=== PATIENT | male | born 1960 | race Caucasian/White ===

== ENCOUNTER 2022-08-20 07:44 | Day surgery (SDC) | payer MEDICARE, MEDICAID, SELFPAY ==
--- NOTE | 2022-08-20 07:59 | PCM.HP.BLA ---
History and Physical Date of Admission: 08/20/22 MARITZA EDWARDS, is a 61 M who presents to the office today for?Initial consult. Dav established with this clinic 05.18.22 with referral from PCP to evaluate ongoing abdominal/epigastric cramping. Underwent open cholecystectomy for acute cholecystitis 09.11.18. Gallbladder remnant seen on CT 12.12.18 and underwent laparoscopic cholecystectomy 01.07.19 at [facility] with Dr. Harrell who also found significant adhesions during surgery which were lysed. Follow up US was reported as negative 02.18.19. Abdominal MRI 04.28.19 without ductal dilation or choledocholithiasis; 9mm hemorrhagic cyst on left kidney. Dr. Mascorro seen and started on gabapentin 300mg TID. Gastroenterology seen 01.12.20 who did not suspected Sphincter of Oddi, started Pamelor, weaned gabapentin and consulted for psychiatric support. Attempted dicyclomine previously which caused constipation, bloating and emesis. Utilizes marijuana 3-4 times a day and Zanaflex as prescribed by his pain management doctor. Flexaril has been very helpful. EGD most recently in 2018. 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 US 06.07.21 with normal pancreas, liver, kidney, no ascites, noted cholecystectomy. CBD 0.7cm at hilum. ROS Const Constitutional: No anorexia, fatigue, fever(s), weight change or sleep problems Eyes Eyes: No change in vision ENT ENT: No abnormal hearing, difficulty swallowing, mouth lesions, tongue swelling or throat swelling Resp Respiratory: No cough or shortness of breath Cardio Cardiology: No chest pain at rest, chest pain with exertion, shortness of breath or dyspnea on exertion Gastro GI: No difficulty swallowing Genitourinary Male: No difficulty urinating or burning urination Musc Musculoskeletal: No joint pain, joint swelling, muscle weakness or decreased muscle mass Skin Skin: No hair loss in leg, yellowing of the eye, itchy eyes, rash, skin ulcer or skin swelling Neuro Neurology: No abnormal hearing, abnormal movements, confusion, unsteady gait/balance or memory loss Psych Psychiatric: No anxiety, No confusion and No memory loss Endo Endocrine: No fatigue or weight change Aller/Imm Allergy/Immunologic: No itchy eyes, throat swelling or tongue swelling Bo/Lymp Hematologic/Lymphatic: No easy bleeding, easy bruising or enlarged lymph nodes Exam Const General: cooperative and comfortable Nutritional Appearance: average body habitus and well nourished [facility] Head: normal to inspection Ears: hearing grossly normal bilaterally Nose: external nose normal Face and sinus: normal facial exam Mouth: oral mucosae normal Throat: posterior oropharynx normal Eyes General: appearance normal, both eyes and all related structures Neck Neck: normal visual inspection Chest Chest palpation & inspection: normal inspection of the chest and normal palpation of entire chest wall Resp Effort & Inspection: normal respiratory effort Auscultation: Bilateral: Clear to Auscultation Cardio Palpation: normal PMI Rate: regular rate Rhythm: regular rhythm GI Inspection: normal to inspection Auscultation: normal bowel sounds Percussion: normal to percussion Palpation: no hepatosplenomegaly Skin General: no rashes or lesions noted Neuro General: patient alert Extrem General: normal to inspection Psych Affect: normal affect Quality Reporting Tobacco Screening ([facility] 138) Smoking Status: Never smoker Assessment and Plan Assessment and Plan (1) Upper abdominal pain: ?Status:?Acute ?Plan: The differential diagnosis for his upper abdominal pain does include better bowel syndrome, adhesions from his cholecystectomy, possible associated with his two cholecystectomies.? He should undergo an ERCP with hepatobiliary system.? I explained to them that this is a purely therapeutic procedure.? I also explained to them the risk and benefits of the ERCP including post ERCP pancreatitis, infection, bleeding, perforation and need for emergent surgery.? He gave written and verbal consent.? I will also look at the stomach to see if he has any signs of inflammation in the stomach or proximal small bowel that may be contributing to his biliary type symptoms. I have re-examined the patient. There are no clinical changes since date of exam.
[2022-08-20 08:19] VITALS: BP 141/87; PULSE 61; RESP 16; TEMP 36.8; O2SAT 97; BMI 28.8
--- NOTE | 2022-08-20 08:21 | EKG12_ITS ---
Test Reason : PRE-OP Blood Pressure : / mmHG Vent. Rate : 061 BPM Atrial Rate : 061 BPM P-R Int : 166 ms QRS Dur : 102 ms QT Int : 414 ms P-R-T Axes : 061 -40 018 degrees QTc Int : 416 ms Normal sinus rhythm Left axis deviation Abnormal ECG No previous ECGs available Confirmed by ELEAZAR MIX, ADOLFO ([id number]), editor newspaper DAVID BAILEY ([id number]) on 08/24/2022 8:23:30 AM Referred By: Alex Ji Confirmed By:ANDERS BUSH MD
[2022-08-20] MEDS: Lactated Ringers 1,000 ML 15 ML IV ×2 (08:30→10:01)
--- NOTE | 2022-08-20 09:16 | RAD_ITS ---
STUDY: ERCP. REASON FOR EXAM: Male, 62 years old. ERCP BIOPSY FLUOROSCOPY TIME (if supplied): ( 3 minutes and 24 seconds ) minutes/seconds. 7 images were submitted. TECHNIQUE: An ERCP was performed by the technical system analyst. Contrast was injected. COMPARISON: None. FINDINGS: Mild dilatation of the common bile duct. RAD/ERCP Biliary Only IMPRESSION: Mild dilatation of the common bile duct. Electronically Signed: Son Chapman MD at 8:45 EDT ,
[2022-08-20 10:45] VITALS: BP 134/83; BP 141/87; PULSE 73; RESP 14; TEMP 36.9; O2SAT 98
--- NOTE | 2022-08-20 10:52 | OP.ERCP_ITS ---
Patient Name: Kamlesh Carter Procedure Date: 08/20/2022 8:59 AM Date of : 1960 Age: 62 Procedure: ERCP Indications: Benign stricture of the common bile duct, Abdominal pain of suspected biliary origin, Abdominal pain of suspected biliary or pancreatic origin Providers: Sb Novak DO Referring MD: Alex Ji Medicines: Monitored Anesthesia Care Complications: No immediate complications. Procedure: Pre-Anesthesia Assessment: - Prior to the procedure, a History and Physical was performed, and patient medications and allergies were reviewed. The patient is competent. The risks and benefits of the procedure and the sedation options and risks were discussed with the patient. All questions were answered and informed consent was obtained. Patient identification and proposed procedure were verified by the physician in the pre-procedure area. Mental Status Examination: alert and oriented. Airway Examination: normal oropharyngeal airway and neck mobility. Respiratory Examination: clear to auscultation. CV Examination: normal. Prophylactic Antibiotics: The patient does not require prophylactic antibiotics. Prior Anticoagulants: The patient has taken no previous anticoagulant or antiplatelet agents. After reviewing the risks and benefits, the patient was deemed in satisfactory condition to undergo the procedure. The anesthesia plan was to use monitored anesthesia care (MAC). Immediately prior to administration of medications, the patient was re-assessed for adequacy to receive sedatives. The heart rate, respiratory rate, oxygen saturations, blood pressure, adequacy of pulmonary ventilation, and response to care were monitored throughout the procedure. The physical status of the patient was re-assessed after the procedure. After obtaining informed consent, the scope was passed under direct vision. Throughout the procedure, the patient's blood pressure, pulse, and oxygen saturations were monitored continuously. The Duodenoscope was introduced through the mouth, and advanced to the duodenum and used to inject contrast into the bile duct and ventral pancreatic duct. The ERCP was accomplished without difficulty. The patient tolerated the procedure well. Scope In: 9:29:39 AM Scope Out: 10:27:34 AM Total Procedure Duration Time 0 hours 57 minutes 55 seconds Findings: The concert singer film was normal. The esophagus was successfully intubated under direct vision. The scope was advanced to a normal major papilla in the descending duodenum without detailed examination of the pharynx, larynx and associated structures, and upper GI tract. The upper GI tract was grossly normal. The bile duct was deeply cannulated with the short-nosed traction sphincterotome. Contrast was injected. I personally interpreted the bile duct and pancreatic duct images. There was brisk flow of contrast through the ducts. The lower third of the main bile duct contained a single segmental stenosis 6 mm in length. The upper third of the main bile duct was diffusely dilated, with an obstruction. The largest diameter was 10 mm. A cholecystectomy had been performed. Placement of a 0.035 inch x 260 cm angled Hydra Jagwire into the biliary tree was attempted. This passed successfully. A 5 mm biliary sphincterotomy was made with a traction (standard) sphincterotome using ERBE electrocautery. There was no post-sphincterotomy bleeding. The biliary tree was swept with a 12 mm balloon starting at the bifurcation. Sludge was swept from the duct. Dilation of the common bile duct with a 6-7-8 mm balloon (to a maximum balloon size of 8 mm) dilator was successful. One 7 Fr by 7 cm stent with two internal flaps was placed 5 cm into the common bile duct. Bile flowed through the stent. The stent was in good position. One 3 Fr by 5 cm temporary stent was placed 3 cm into the ventral pancreatic duct. Clear fluid flowed through the stent. The stent was in good position. Impression: - A single segmental biliary stricture was found in the lower third of the main bile duct. The stricture was benign appearing. - The upper third of the main bile duct was dilated, with an obstruction. - The patient has had a cholecystectomy. - A biliary sphincterotomy was performed. - The biliary tree was swept and sludge was found. - Common bile duct was successfully dilated. - One stent was placed into the common bile duct. - One temporary stent was placed into the ventral pancreatic duct. Procedure Code(s): --- Professional --- 71440, Endoscopic retrograde cholangiopancreatography (ERCP); with placement of endoscopic stent into biliary or pancreatic duct, including pre- and post-dilation and guide wire passage, when performed, including sphincterotomy, when performed, each stent [id number], 59, Endoscopic retrograde cholangiopancreatography (ERCP); with placement of endoscopic stent into biliary or pancreatic duct, including pre- and post-dilation and guide wire passage, when performed, including sphincterotomy, when performed, each stent [id number], Endoscopic retrograde cholangiopancreatography (ERCP); with removal of calculi/debris from biliary/pancreatic duct(s) CPT copyright 2017 [employer]. All rights reserved. The codes documented in this report are preliminary and upon laundry housekeeping aide review may be revised to meet current compliance requirements. Sb Novak DO 08/20/2022 10:51:23 AM This report has been signed electronically. Number of Addenda: 0 Note Initiated On: 08/20/2022 8:59 AM
--- NOTE | 2022-08-20 10:52 | OP.CCLET_ITS ---
08/20/2022 Alex Ji Re : ERCP procedure for Kamlesh Carter Dear Margy This procedure was performed on Saturday, August 20, 2022. My impressions and recommendations are as follows: Impressions : - A single segmental biliary stricture was found in the lower third of the main bile duct. The stricture was benign appearing. - The upper third of the main bile duct was dilated, with an obstruction. - The patient has had a cholecystectomy. - A biliary sphincterotomy was performed. - The biliary tree was swept and sludge was found. - Common bile duct was successfully dilated. - One stent was placed into the common bile duct. - One temporary stent was placed into the ventral pancreatic duct. Recommendations : My findings are described in the full procedure note, which is enclosed. If I can be of further assistance, please feel free to contact me at . Sincerely, Sb Novak, 08/20/2022 10:51:23 AM This report has been signed electronically.
[2022-08-20 11:00] VITALS: BP 141/87; BP 141/89; PULSE 70; RESP 16; O2SAT 94
[2022-08-20 11:15] VITALS: BP 141/87; BP 145/88; PULSE 67; RESP 16; O2SAT 96
[2022-08-20 11:29] VITALS: BP 141/87; BP 143/83; PULSE 67; RESP 16; TEMP 36.6; O2SAT 96
[2022-08-20 11:58] VITALS: BP 141/87
== END 2022-08-20 12:15 | disposition home or self-care (01) ==
LOC: EN 07:45 → AC 07:48
PROVIDERS: PCP Family Medicine; Referring Provider Family Medicine; Visit Provider Internal Medicine Gastroenterology
PROC: (CPT 43260; principal; 2022-08-20 08:40)
DX: K83.1 Obstruction of bile duct (principal); K83.8 Other specified diseases of biliary tract; R10.10 Upper abdominal pain, unspecified; Z90.49 Acquired absence of other specified parts of digestive tract
CPT/HCPCS: 43264; 43276; 43274; 74328; 76000; 93005; J7120; J2405

== ENCOUNTER 2022-08-22 13:34 | Inpatient (IN) | payer MEDICARE, MEDICAID, SELFPAY ==
[2022-08-22] VITALS (9 sets, daily range): BP systolic 141–213; BP diastolic 79–110; PULSE 79–96; RESP 9–20; TEMP 36.6–37.6; O2SAT 97–99; BMI 28.1; BMI 27.6
--- NOTE | 2022-08-22 14:56 | RAD_ITS ---
STUDY: X-RAY CHEST REASON FOR EXAM: Male, 62 years old. Cough TECHNIQUE: Single AP portable view of the chest. COMPARISON: None. FINDINGS: Mild increased linear markings at the lung bases suggestive of linear atelectasis. There is no demonstrated pleural abnormality. There is borderline cardiomegaly. Normal mediastinum and rosa. Normal visualized pulmonary arteries. There is atherosclerotic tortuosity of the aortic arch and descending thoracic aorta. There are degenerative changes of the visualized thoracic spine. Normal visualized ribs, clavicles, and shoulders. There is no demonstrated abnormality of the visualized soft tissue structures of the upper abdomen. RAD/Chest 1 View (Portable) IMPRESSION: Increased linear markings at the lung bases suggestive of bibasilar atelectasis. Electronically Signed: Son Chapman MD at 15:06 EDT ,
--- NOTE | 2022-08-22 15:05 | CT_ITS ---
STUDY: CT ABDOMEN AND PELVIS WITH CONTRAST REASON FOR EXAM: Male, 62 years old. abd pain RADIATION DOSAGE (If Supplied By Facility): CTDIvol = ( 13.96 ) mGy, DLP = ( 958.72 ) mGycm TECHNIQUE: Transaxial images were obtained from the dome of the diaphragm to the symphysis pubis without oral contrast. IV 100mL Isovue-[id number] was administered. Sagittal and coronal images were reconstructed. Individualized dose optimization techniques were used for this CT. COMPARISON: None. FINDINGS: Mild bibasilar interstitial thickening.. The visualized portions of the heart are within normal limits. Normal size liver demonstrating fatty infiltration without mass or bile duct dilatation. There is a biliary stent noted which appears to be extending into the proximal pancreatic duct.. Gallbladder has been removed surgically. Normal spleen. There is mild peripancreatic edema at the level of the head and uncinate process with associated mild thickening of the altman of the transverse portion of the duodenum consistent with mild focal pancreatitis and duodenitis. Normal bilateral adrenal glands. Normal right kidney. Normal left kidney. Normal visualized stomach. Normal small intestine. Mild diverticular changes of colon without evidence for acute diverticulitis. The appendix is visualized and appears normal. Minor atherosclerotic changes of the aorta without evidence for aneurysm.. Normal inferior vena cava. Normal retroperitoneum. Nonspecific bladder distention of uncertain etiology or clinical significance Normal abdominal wall. Lumbar spine demonstrates degenerative changes CT/Abdomen/Pelvis W IV Cont ONLY IMPRESSION: Postop change status post cholecystectomy and biliary stent placement. Findings consistent with mild acute focal pancreatitis in association with acute duodenitis Electronically Signed: Billy Mason MD at 16:26 EDT ,
--- NOTE | 2022-08-22 15:06 | EX.ED.DYSGE1 ---
HPI History of Present Illness Chief Complaint: Abd Pain Informant: patient Onset/Context/Timing Onset: Days Context: Gradual Onset Timing: Waxes and wanes Current Severity: Moderate Maximum Severity: Severe Narrative Narrative: Patient present secondary to abdominal pain. He had an ERCP performed on Saturday, 2 days ago, with Dr. Novak. He had a biliary sphincterotomy. A stent was placed to the common bile duct after it was dilated. There is a temporary stent placed to the ventral pancreatic duct. Patient states he had pain when he left the hospital and it has not subsided. He denies fever or chills. No vomiting or diarrhea. He has not had a bowel movement and is passing very little gas. He actually points to the periumbilical area and describing his area of pain. [facility] Medical History Alcohol use Anxiety Constipation Depression Heartburn History of diverticulitis History of stress test Marijuana use Non-smoker Wears glasses Home Medications tizanidine 4 mg capsule 4 mg PO Q8H PRN Spasms 03/07/22 [History Last Taken Unknown] cyclobenzaprine 10 mg tablet 10 mg PO TID 08/14/22 [History Last Taken Unknown] escitalopram oxalate 10 mg tablet 10 mg PO DAILY 08/14/22 [History Last Taken Unknown] magnesium 200 mg tablet 200 mg PO DAILY 08/14/22 [History Last Taken Unknown] multivitamin 1 cap PO DAILY 08/14/22 [History Last Taken Unknown] Allergy/AdvReac Type Severity Reaction Status Date / Time amoxicillin Allergy Intermediate UNK Verified 08/22/22 13:40 Family History Mother Colon cancer Cancer Ovarian Hypertension Father Cancer Gastric Hypertension Surgical History Hx of cholecystectomy Social History Smoking Status: Never smoker alcohol intake: never substance use type: other details: Medical Marijuana ROS ROS ED Constitutional Constitutional ED: Denies chills or fever(s) Eyes Eyes: Denies change in vision or discharge from eye(s) ENT ENT ED: Denies discharge from eye(s), rhinorrhea or sore throat Cardiovascular Cardiovascular: Denies chest pain or palpitations Respiratory/Chest Respiratory/Chest: Denies cough or dyspnea Gastrointestinal Gastrointestinal: Reports abdominal pain and nausea; Denies diarrhea or vomiting Genitourinary Genitourinary ED: Denies dysuria Musculoskeletal Musculoskeletal: Denies back pain or extremity pain Integumentary Denies Abrasions or rash Neurologic Neurologic: Denies headache(s) or weakness Allergic/Immunologic Allergic/Immunologic ED: Denies lip swelling or urticaria EXAM Physical Exam Const Vital Signs: 08/22/22 13:34 08/22/22 16:25 08/22/22 15:20 Temperature 97.8 F Temperature Source Temporal Pulse Rate 93 83 81 Respiratory Rate 18 18 9 L Blood Pressure 141/109 H 162/98 H 185/109 H Blood Pressure Mean 119 119 134 Pulse Ox 98 Oxygen Delivery Method Room Air Positive well nourished and well developed General Appearance ED: well developed HEENT Reports normocephalic and head/scalp atraumatic Eyes PERRL and EOMs intact bilaterally Neck supple Chest Wall inspection of chest normal and palpation of chest normal Resp normal respiratory effort and clear to auscultation bilaterally Cardio regular rate and regular rhythm GI GI Narrative: Abdomen soft but distended. Diffuse tenderness noted. Rare bowel sounds are noted. Palpation: soft Extremity normal to inspection Neuro oriented x3 and no sensory deficits noted Sensorium / Orientation: alert Motor Exam: strength 5/5 throughout Psych Mood & Affect: anxious Skin no rashes or lesions noted MDM MDM MDM Narrative Medical decision making narrative: Patient given Dilaudid and Zofran along with IV fluids. Lab work obtained along with CT scan of the abdomen and pelvis. Lab Data Attestation: I reviewed the patient's lab results. Labs: Laboratory Results - last 24 hr 08/22/22 08/22/22 08/22/22 15:00 15:00 15:00 WBC 21.1 H RBC 5.30 Hgb 16.7 H Hct 47.9 MCV 90.4 MCH 31.5 MCHC 34.9 RDW Std Deviation 41.6 RDW Coeff of Linsey 12.5 Plt Count 282 MPV 8.9 Immature Gran % (Auto) 0.800 Neut % (Auto) 83.8 H Lymph % (Auto) 6.1 L Brown % (Auto) 9.0 Eos % (Auto) 0.0 Baso % (Auto) 0.3 Absolute Neuts (auto) 17.7 H Absolute Lymphs (auto) 1.28 Nucleated RBC % 0 Differential Comment SEE COMMENT Diff Path Review May foll Platelet Estimate ADEQUATE Anisocytosis RARE Macrocytosis RARE Sodium 135 L Potassium 3.7 Chloride 99 Carbon Dioxide 28.0 Anion Gap 8 BUN 11 Creatinine 1.13 Estim Creat Clear Calc 63.89 Est GFR (MDRD) Af Amer 84 Est GFR (MDRD) Non-Af 69 BUN/Creatinine Ratio 9.7 L Glucose 140 H Calcium 9.7 Total Bilirubin 1.30 H Direct Bilirubin 0.50 H AST 91 H ALT 215 H Alkaline Phosphatase 155 H Troponin I High Sens Cancelled Total Protein 8.2 Albumin 3.8 Globulin 4.4 H Lipase 187 Urine Color Yellow Urine Clarity Sl. Cloudy Urine pH 6.5 Ur Specific [place] 1.015 Urine Protein 30 H Urine Glucose (UA) Normal Urine Ketones Negative Urine Occult Blood 150 H Urine Nitrite Negative Urine Bilirubin Negative Urine Urobilinogen Normal Ur Leukocyte Esterase 25 H Radiography Chest X-Ray - ED: 1 View, Read by ED Physician and Chronic Changes Diagnostic Testing: Clinical Impression(s) from Imaging Studies Chest X-Ray 08/22/22 14:56 IMPRESSION: Increased linear markings at the lung bases suggestive of bibasilar atelectasis. Electronically Signed: Son Chapman MD at 15:06 EDT , Abdomen/Pelvis CT 08/22/22 15:05 IMPRESSION: Postop change status post cholecystectomy and biliary stent placement. Findings consistent with mild acute focal pancreatitis in association with acute duodenitis Electronically Signed: Billy Mason MD at 16:26 EDT , Treatment and Re-Evaluation Narrative: CBC elevated at 12.1 with 83% neutrophils. Hemoglobin concentrated at 16.7. Chemistry studies unremarkable. LFTs bumped with a total bili of 1.3, direct bili 0.5, AST of 91, ALT 215, alk phos 155. Lipase is normal at 187. Chest x-ray per my interpretation reveals no free air under the diaphragm and no focal infiltrate. Radiology interpretation is reviewed. CT scan of the abdomen and pelvis reveals findings consistent with mild acute focal pancreatitis with acute duodenitis. I spoke with Dr. Novak who reviewed the patient's images. It appears the temporary stent in the pancreatic duct has migrated and is up against the duodenum. He would like the patient to be given 2 L of IV fluid now and then fluids to be run at 300 cc/h. He would like Reglan 10 mg IV x1, azithromycin 500 mg IV x1, and Protonix 40 mg IV x1. These orders have been placed. I will speak with hospitalist regarding admission and plan will be repeat ERCP tomorrow. Discharge Plan Triage Chief Complaint: Abd Pain ED Provider: Debra Landrum Dx/Rx/DC Orders Clinical Impression: Abdominal pain, Displacement of pancreatic stent, Leukocytosis Prescriptions: No Action tizanidine 4 mg capsule 4 mg PO Q8H PRN (Reason: Spasms) cyclobenzaprine 10 mg Tablet 10 mg PO TID escitalopram oxalate 10 mg Tablet 10 mg PO DAILY multivitamin Capsule 1 cap PO DAILY magnesium 200 mg Tablet 200 mg PO DAILY Primary Care Provider: Alex Ji Referrals: Alex Ji MD [Primary Care Provider] - Disposition Disposition: Acute Care Hospital [facility]
[2022-08-22] MEDS: HYDROmorphone 1 MG/ML Syringe 0.5 MG IV (15:16)
[2022-08-22] MEDS: Ondansetron 4 MG/2 ML Vial IV (15:16)
[2022-08-22] MEDS: 0.9% Normal Saline 1,000 ML 150 ML IV ×2 (15:17→20:17)
[2022-08-22 15:20] LABS: Bacteria 0 SEEN /hpf (None Seen); Mucous, Urine 0 SEEN /hpf (<or=2+); Red Blood Cells-Urine 0 SEEN /hpf (0-5); Squamous Epithelial Cells - UA 0 SEEN /hpf (0-5)
[2022-08-22 15:28] LABS: Color, Urine Yellow (Yellow); Glucose, Dipstick Normal (Normal); Ketone-Dipstick Negative (Negative); Leukocyte Esterase-Dipstick 25 /ul (Negative); Nitrite-Dipstick Negative (Negative); Occult Blood-Urine 150 /ul (Negative); Protein-Dipstick 30 mg/dl (Negative); Specific Gravity, Urine 1.015 (1.002-1.030); Urine Bilirubin Dipstick Negative (Negative); Urine Clarity Sl. Cloudy (Clear); Urine Urobilinogen Normal (Normal); Urine pH 6.5 (5.0 - 8.0)
[2022-08-22 15:32] LABS: Absolute Lymphocyte Count 1.28 X10^3/uL (0.83-4.51); Absolute Neutrophil Count 17.7 X10^3/uL (2.0-7.7); Basophil# 0.06 X10^3/uL; Basophil% 0.3 % (0-1); Eosinophil# 0.01 X10^3/uL; Hematocrit 47.9 % (40-54); Hemoglobin 16.7 g/dL (13.0-16.5); Lymphocyte # 1.28 X10^3/ul (0.83-4.51); Lymphocyte % 6.1 % (19-41); Mean Corp Hgb Conc 34.9 g/dL (32-36); Mean Corpuscular Hgb 31.5 pg (27.0-32.0); Mean Corpuscular Volume 90.4 fL (80-94); Mean Platelet Vol. 8.9 fl (6.2-12.0); Monocyte# 1.89 X10^3/uL; NRBC Flagged by Analyzer 0 % (0-5); Neutrophil # 17.69 X10^3/uL (2.7-7.7); Neutrophil % 83.8 % (47-70); POSITIVE DIFFERENTIAL YES; Platelet Count 282 K/mm3 (150-450); RBC Distribution Width CV 12.5 % (11.6-14.6); RBC Distribution Width SD 41.6 fl (35.1-43.9); White Blood Count 21.1 K/mm3 (4.4-11.0)
[2022-08-22 15:35] LABS: Differential Indicated SCAN CRITERIA MET
[2022-08-22 15:41] LABS: AST(SGOT) 91 U/L (15-37); Alanine Aminotransfer ALT/SGPT 215 U/L (16-61); Albumin, Serum 3.8 g/dL (3.2-5.0); Alkaline Phosphatase 155 U/L (45-117); Anion Gap 8 (5-15); BUN 11 mg/dL (7-18); BUN/Creat Ratio 9.7 RATIO (10-20); Calcium,Total 9.7 mg/dL (8.5-10.1); Chloride 99 mmol/L (98-107); Creatinine, Serum 1.13 mg/dL (0.70-1.30); EST Glomerular Filtration Rate 69 mL/min (>60); Est Glom Filt Rate - Afr Amer 84 mL/min (>60); Estimated Creatinine Clearance 63.89 ml/min; Globulin 4.4 g/dL (2.2-4.2); Glucose 140 mg/dL (74-106); Lipase 187 U/L (73-393); Potassium 3.7 mmol/L (3.5-5.1); Protein, Total 8.2 g/dL (6.4-8.2); Sodium Level 135 mmol/L (136-145)
[2022-08-22 16:32] LABS: Platelet Estimate ADEQUATE (ADEQ)
[2022-08-22 16:33] LABS: Anisocytosis RARE; Macrocytosis RARE
[2022-08-22] MEDS: Metoclopramide 10 MG/2 ML Vial IV (16:42)
[2022-08-22] MEDS: HYDROmorphone 1 MG/ML Syringe IV (16:42)
--- NOTE | 2022-08-22 17:01 | PCM.HP.STD ---
HPI - General General Chief Complaint: abdominal pain HPI Narrative DARLIN EDWARDS, is a 62 M who presents with worsening abdominal pain. Patient has bile duct strictures and underwent an ERCP on the by Dr. Novak. Patient was noted to have a single segmental biliary stricture in the lower third of the main bile duct as well as in the upper third with an obstruction. A sphincterotomy was performed and the biliary tree was swept and sludge was noted. The common bile duct was successfully dilated and 1 stent was placed into the common bile duct. A temporary state was placed in the ventral pancreatic duct. Patient went home that day and was really not feeling any better and just got worse. He presented to the emergency room for worsening abdominal pain. The abdominal pain was in the right upper quadrant. Patient had a CAT scan that showed mild acute focal pancreatitis in association with acute duodenitis. The ER reached out to Dr. Novak, who reviewed the images. It appeared that the temporary stent in the pancreatic duct had migrated and is up against the duodenum. The plan is to repeat the ERCP on the . Patient has had chronic abdominal pain for years. He has had his gallbladder removed and then had surgery for complications without surgery as well. [facility] Medical History Alcohol use Anxiety Constipation Depression Heartburn History of diverticulitis History of stress test Marijuana use Non-smoker Wears glasses Home Medications tizanidine 4 mg capsule 4 mg PO Q8H PRN Spasms 03/07/22 [History Last Taken Unknown] cyclobenzaprine 10 mg tablet 10 mg PO TID 08/14/22 [History Last Taken Unknown] escitalopram oxalate 10 mg tablet 10 mg PO DAILY 08/14/22 [History Last Taken Unknown] magnesium 200 mg tablet 200 mg PO DAILY 08/14/22 [History Last Taken Unknown] multivitamin 1 cap PO DAILY 08/14/22 [History Last Taken Unknown] Allergy/AdvReac Type Severity Reaction Status Date / Time amoxicillin Allergy Intermediate UNK Verified 08/22/22 13:40 Family History Mother Colon cancer Cancer Ovarian Hypertension Father Cancer Gastric Hypertension Surgical History Hx of cholecystectomy Social History Smoking Status: Never smoker alcohol intake: never substance use type: other details: Medical Marijuana ROS ROS Narrative Chills. Nausea. Constipation. All review of systems were negative except as mentioned above in the history of present illness and the other review of systems. Vital Signs Vital Signs Vital Signs: 08/22/22 13:34 08/22/22 16:25 08/22/22 15:20 Temperature 36.6 C Temperature Source Temporal Pulse Rate 93 83 81 Respiratory Rate 18 18 9 L Blood Pressure 141/109 H 162/98 H 185/109 H Blood Pressure Mean 119 119 134 Pulse Ox 98 Oxygen Delivery Method Room Air 08/22/22 16:52 Temperature 36.9 C Temperature Source Oral Pulse Rate 83 Respiratory Rate 18 Blood Pressure 201/110 H Blood Pressure Mean 140 Pulse Ox 97 Oxygen Delivery Method Room Air Weight Weight: 84 kg Body Mass Index (BMI) 28.1 Physical Exam Const alert Constitutional Narrative: Uncomfortable. Nontoxic appearing. HEENT normocephalic, head/scalp atraumatic, hearing grossly normal bilaterally and moist oral mucous membranes Resp normal respiratory effort, no retractions, no use of accessory muscles and clear to auscultation bilaterally Cardio regular rate, regular rhythm, S1 normal heart sound and S2 normal heart sound GI GI Narrative: Hypoactive bowel sounds. Right upper quadrant tenderness without rebound. Extremity normal to inspection Neuro oriented x3, moves all extremities and no focal motor deficits Sensorium / Orientation: awake and alert Psych Negative for affect normal Results Lab / Micro Data Attestation: I reviewed the patient's lab results. Result Diagrams: 08/22/22 15:00 08/22/22 15:00 Labs: Laboratory Results - last 24 hr 08/22/22 15:00: WBC 21.1 H, RBC 5.30, Hgb 16.7 H, Hct 47.9, MCV 90.4, MCH 31.5, MCHC 34.9, RDW Std Deviation 41.6, RDW Coeff of Linsey 12.5, Plt Count 282, MPV 8.9, Immature Gran % (Auto) 0.800, Neut % (Auto) 83.8 H, Lymph % (Auto) 6.1 L, [place] % (Auto) 9.0, Eos % (Auto) 0.0, Baso % (Auto) 0.3, Absolute Neuts (auto) 17.7 H, Absolute Lymphs (auto) 1.28, Nucleated RBC % 0, Differential Comment SEE COMMENT, Diff Path Review May foll, Platelet Estimate ADEQUATE, Anisocytosis RARE, Macrocytosis RARE 08/22/22 15:00: Sodium 135 L, Potassium 3.7, Chloride 99, Carbon Dioxide 28.0, Anion Gap 8, BUN 11, Creatinine 1.13, Estim Creat Clear Calc 63.89, Est GFR (MDRD) Af Amer 84, Est GFR (MDRD) Non-Af 69, BUN/Creatinine Ratio 9.7 L, Glucose 140 H, Calcium 9.7, Total Bilirubin 1.30 H, Direct Bilirubin 0.50 H, AST 91 H, ALT 215 H, Alkaline Phosphatase 155 H, Troponin I High Sens Cancelled, Total Protein 8.2, Albumin 3.8, Globulin 4.4 H, Lipase 187 08/22/22 15:00: Urine Color Yellow, Urine Clarity Sl. Cloudy, Urine pH 6.5, Ur Specific [place] 1.015, Urine Protein 30 H, Urine Glucose (UA) Normal, Urine Ketones Negative, Urine Occult Blood 150 H, Urine Nitrite Negative, Urine Bilirubin Negative, Urine Urobilinogen Normal, Ur Leukocyte Esterase 25 H Radiology Impression Chest X-Ray 08/22/22 14:56 IMPRESSION: Increased linear markings at the lung bases suggestive of bibasilar atelectasis. Electronically Signed: Son Chapman MD at 15:06 EDT , Abdomen/Pelvis CT 08/22/22 15:05 IMPRESSION: Postop change status post cholecystectomy and biliary stent placement. Findings consistent with mild acute focal pancreatitis in association with acute duodenitis Electronically Signed: Billy Mason MD at 16:26 EDT , Assessment & Plan Assessment/Plan (1) Displacement of pancreatic stent: PLAN: Plan is for Dr. Novak to see the patient and perform an ERCP on . (2) Acute pancreatitis after endoscopic retrograde cholangiopancreatography (ERCP): PLAN: Supportive management at this time. (3) Duodenitis: PLAN: Supportive management. Likely due to the complications from the ERCP. Dr. Novak notified the emergency room physician to initiate pantoprazole as well as azithromycin. We will continue with those medications (4) Leukocytosis: QUALIFIERS: Leukocytosis type: unspecified Qualified Code(s): D72.829 - Elevated white blood cell count, unspecified PLAN: Likely reactive given above. Continue to monitor. (5) Hypertensive urgency: PLAN: Secondary to above. Cannot rule out primary hypertension though the patient's for member at bedside states that his blood pressure has previously been normal. As needed hydralazine PLAN: Plan VTE prophylaxis: Given the its anticipate this is going to be an observation status at this time, not indicated at present. Charges/Coding Visit Charges OBSV E&M: 18453 Initial observation care L3
--- NOTE | 2022-08-22 17:28 | CON.PCM_ITS ---
Assessment & Plan Assessment/Plan (1) Displacement of pancreatic stent: PLAN: The CT scan abdomen pelvis did show a migrated pancreatic stent to the wall of the duodenum. His lipase is normal. I think it is working but because it did migrate he likely had contrast that stated in the pancreas and cause acute pancreatitis. Recommend to check ESR, CRP, lactate. (2) Acute pancreatitis after endoscopic retrograde cholangiopancreatography (ERCP): PLAN: Acute pancreatitis is likely associated with gastroparesis and a partial paralytic ileus. Recommend Reglan and 5 mg IV every 6 hours [id number] for the gastroparesis, azithromycin 250 to 500 mg IV for the ileus associated with acute pancreatitis. Recommend normal saline at 300 cc an hour. Recommend pain medicine. He would feel a lot better with an NG tube as it would take with the nausea. (3) Duodenitis: HPI Consult Data Date of Consult: 08/23/22 HPI Narrative HPI Narrative: DARLIN EDWARDS, is a 62 M who presents [facility] Medical History Alcohol use Anxiety Constipation Depression Heartburn History of diverticulitis History of stress test Marijuana use Non-smoker Wears glasses Home Medications tizanidine 4 mg capsule 4 mg PO Q8H PRN Spasms 03/07/22 [History Last Taken 08/21/22] cyclobenzaprine 10 mg tablet 10 mg PO TID 08/14/22 [History Last Taken 08/21/22] escitalopram oxalate 10 mg tablet 10 mg PO DAILY 08/14/22 [History Last Taken 2 Days Ago ~08/20/22] magnesium 200 mg tablet 200 - 400 mg PO DAILY supplement 08/14/22 [History Last Taken 08/19/22] acetaminophen 500 mg tablet 1,000 mg PO BID PRN Pain 08/22/22 [History Last Taken 08/21/22] arginine oxoglurate 350 mg tablet,extended release (L-Arginine (alpha-ketoglutarate)) 350 - 700 mg PO DAILY SUPPLEMENT 08/22/22 [History Last Taken 08/17/22] diphenhydramine 25 mg-acetaminophen 500 mg tablet (Acetaminophen PM) 2 tab PO QHS PRN Pain 08/22/22 [History Last Taken 08/21/22] multivitamin 1 tab PO DAILY health maintenance 08/22/22 [History Last Taken 08/17/22] Allergy/AdvReac Type Severity Reaction Status Date / Time amoxicillin Allergy Intermediate UNK Verified 08/22/22 13:40 Family History Mother Colon cancer Cancer Ovarian Hypertension Father Cancer Gastric Hypertension Surgical History Hx of cholecystectomy Social History Smoking Status: Never smoker alcohol intake: never substance use type: other details: Medical Marijuana ROS ROS Narrative Chills. Nausea. Constipation. All review of systems were negative except as mentioned above in the history of present illness and the other review of systems. Review of Systems ROS Unobtainable: other Constitutional Constitutional: Denies fatigue, fever(s), poor appetite, weight gain or weight loss ENT HEENT: Denies mouth lesions Cardiovascular Cardiovascular: Denies abdominal bloating, abdominal edema or abdominal pain Respiratory/Chest Respiratory/Chest: Denies change in mental status, change in phlegm color, chest congestion or chest tightness Gastrointestinal Gastrointestinal: Denies belching, bloating, change in bowel habits, change in stool character, chewing difficulty, coffee ground emesis, constipation, cramping, diarrhea, dyspepsia, dysphagia, early satiety, excessive flatus, fecal incontinence, heartburn, hematemesis, hematochezia, hemorrhoids, loose stools, melena, nausea, odynophagia, rectal bleeding, tenesmus, vomiting or weight changes Genitourinary Genitourinary: Denies abdominal discomfort, burning urination or itching Musculoskeletal Musculoskeletal: Reports as per HPI; Denies muscle weakness or myalgias Integumentary Integumentary: Denies jaundice Neurologic Neurologic: Denies lack of coordination or weakness Psychiatric Psychiatric: Denies confusion, depression, memory loss, mood swings, paranoia or suicidal ideation Endocrine Endocrinology: Denies systems reviewed and no addt'l complaints, except as documented Hematologic/Lymphatic Hematologic/Lymphatic: Denies anemia, easy bleeding, easy bruising or lymphadenopathy Allergic/Immunologic Allergic/Immunologic: Denies systems reviewed and no addt'l complaints, except as documented Physical Exam Const alert Constitutional Narrative: Uncomfortable. Nontoxic appearing. HEENT normocephalic, head/scalp atraumatic, hearing grossly normal bilaterally and moist oral mucous membranes Resp normal respiratory effort, no retractions, no use of accessory muscles and clear to auscultation bilaterally Cardio regular rate, regular rhythm, S1 normal heart sound and S2 normal heart sound GI GI Narrative: Hypoactive bowel sounds. Right upper quadrant tenderness without rebound. Extremity normal to inspection Neuro oriented x3, moves all extremities and no focal motor deficits Sensorium / Orientation: awake and alert Psych Negative for affect normal Lab / Micro Data Result Diagrams: 08/23/22 06:10 08/23/22 06:10 Labs: Laboratory Results - last 24 hr 08/22/22 15:00: WBC 21.1 H, RBC 5.30, Hgb 16.7 H, Hct 47.9, MCV 90.4, MCH 31.5, MCHC 34.9, RDW Std Deviation 41.6, RDW Coeff of Linsey 12.5, Plt Count 282, MPV 8.9, Immature Gran % (Auto) 0.800, Neut % (Auto) 83.8 H, Lymph % (Auto) 6.1 L, [place] % (Auto) 9.0, Eos % (Auto) 0.0, Baso % (Auto) 0.3, Absolute Neuts (auto) 17 .7 H, Absolute Lymphs (auto) 1.28, Nucleated RBC % 0, Differential Comment SEE COMMENT, Diff Path Review May foll, Platelet Estimate ADEQUATE, Anisocytosis RARE, Macrocytosis RARE 08/22/22 15:00: Sodium 135 L, Potassium 3.7, Chloride 99, Carbon Dioxide 28.0, Anion Gap 8, BUN 11, Creatinine 1.13, Estim Creat Clear Calc 63.89, Est GFR (MDRD) Af Amer 84, Est GFR (MDRD) Non-Af 69, BUN/Creatinine Ratio 9.7 L, Glucose 140 H, Calcium 9.7, Total Bilirubin 1.30 H, Direct Bilirubin 0.50 H, AST 91 H, ALT 215 H, Alkaline Phosphatase 155 H, Troponin I High Sens Cancelled, Total Protein 8.2, Albumin 3.8, Globulin 4.4 H, Lipase 187 08/22/22 15:00: Urine Color Yellow, Urine Clarity Sl. Cloudy, Urine pH 6.5, Ur Specific [place] 1.015, Urine Protein 30 H, Urine Glucose (UA) Normal, Urine Ketones Negative, Urine Occult Blood 150 H, Urine Nitrite Negative, Urine Bilirubin Negative, Urine Urobilinogen Normal, Ur Leukocyte Esterase 25 H Radiology Impression Chest X-Ray 08/22/22 14:56 IMPRESSION: Increased linear markings at the lung bases suggestive of bibasilar atelectasis. Electronically Signed: Son Chapman MD at 15:06 EDT , Abdomen/Pelvis CT 08/22/22 15:05 IMPRESSION: Postop change status post cholecystectomy and biliary stent placement. Findings consistent with mild acute focal pancreatitis in association with acute duodenitis Electronically Signed: Billy Mason MD at 16:26 EDT , Charges/Coding Visit Charges Inpatient E&M: 75672 Init Hosp L2
[2022-08-22] MEDS: 0.9% Normal Saline 1,000 ML 999 ML IV ×2 (17:54→19:16)
[2022-08-22] MEDS: hydrALAZINE 20 MG/ML Vial 10 MG IV (18:38)
[2022-08-22] MEDS: Acetaminophen 500 MG Tablet 1000 MG PO (20:16)
[2022-08-22 20:17] LABS: White Blood Cells 0-5 SEEN /hpf (0-5)
[2022-08-22] MEDS: oxyCODONE 5 MG Tablet 10 MG PO (20:17)
[2022-08-22] MEDS: HYDROmorphone 0.5 MG/0.5 ML SYRINGE IV (22:13)
[2022-08-23] VITALS (7 sets, daily range): BP systolic 158–184; BP diastolic 94–103; PULSE 78–96; RESP 16–20; TEMP 36.3–37.1; O2SAT 96–99
[2022-08-23] MEDS: 0.9% Normal Saline 1,000 ML 150 ML IV ×2 (01:07→08:17)
[2022-08-23] MEDS: HYDROmorphone 0.5 MG/0.5 ML SYRINGE IV ×2 (03:34→06:35)
[2022-08-23 06:40] LABS: Absolute Lymphocyte Count 1.67 X10^3/uL (0.83-4.51); Absolute Neutrophil Count 16.7 X10^3/uL (2.0-7.7); Basophil# 0.04 X10^3/uL; Basophil% 0.2 % (0-1); Eosinophil# 0.02 X10^3/uL; Eosinophils% 0.1 % (0-5); Hematocrit 45.5 % (40-54); Hemoglobin 16.1 g/dL (13.0-16.5); Lymphocyte # 1.67 X10^3/ul (0.83-4.51); Lymphocyte % 8.2 % (19-41); Mean Corp Hgb Conc 35.4 g/dL (32-36); Mean Corpuscular Hgb 31.9 pg (27.0-32.0); Mean Corpuscular Volume 90.1 fL (80-94); Mean Platelet Vol. 9.1 fl (6.2-12.0); Monocyte# 1.69 X10^3/uL; Monocyte% 8.3 % (0-10); NRBC Flagged by Analyzer 0 % (0-5); Neutrophil # 16.71 X10^3/uL (2.7-7.7); Neutrophil % 82.4 % (47-70); POSITIVE DIFFERENTIAL YES; Platelet Count 256 K/mm3 (150-450); RBC Distribution Width CV 12.8 % (11.6-14.6); RBC Distribution Width SD 42.1 fl (35.1-43.9); Red Blood Count 5.05 M/mm3 (4.6-6.2); White Blood Count 20.3 K/mm3 (4.4-11.0)
[2022-08-23 06:41] LABS: Differential Indicated SCAN CRITERIA MET
[2022-08-23 07:01] LABS: Differential Comment SCANNED
[2022-08-23 07:11] LABS: ALB/GLOB Ratio 0.8 RATIO (0.9-2.4); AST(SGOT) 44 U/L (15-37); Alanine Aminotransfer ALT/SGPT 148 U/L (16-61); Albumin, Serum 3.4 g/dL (3.2-5.0); Alkaline Phosphatase 160 U/L (45-117); Anion Gap 8 (5-15); BUN 7 mg/dL (7-18); BUN/Creat Ratio 8.2 RATIO (10-20); Calcium,Total 8.4 mg/dL (8.5-10.1); Chloride 104 mmol/L (98-107); Creatinine, Serum 0.85 mg/dL (0.70-1.30); EST Glomerular Filtration Rate 96 mL/min (>60); Est Glom Filt Rate - Afr Amer 116 mL/min (>60); Estimated Creatinine Clearance 84.94 ml/min; Globulin 4.5 g/dL (2.2-4.2); Glucose 123 mg/dL (74-106); Potassium 3.4 mmol/L (3.5-5.1); Protein, Total 7.9 g/dL (6.4-8.2); Sodium Level 134 mmol/L (136-145)
[2022-08-23] MEDS: Potassium Chloride Oral Tablet 20 MEQ 40 MEQ PO (08:18)
[2022-08-23] MEDS: LORazepam 2 MG/ML Syringe 1 MG IV (08:19)
[2022-08-23] MEDS: HYDROmorphone 1 MG/ML Syringe IV ×4 (08:19→21:08)
[2022-08-23] MEDS: Escitalopram Oxalate 10 MG Tablet PO (08:35)
[2022-08-23] MEDS: Furosemide 20 MG/2 ML VIAL IV (08:35)
[2022-08-23] MEDS: Docusate Sodium 100 MG/10 ML UDC 200 MG PO (09:49)
--- NOTE | 2022-08-23 13:31 | PN.HOSP_ITS ---
Subjective Subjective Follow-up on intractable abdominal pain: Patient was seen and examined. He complains of feeling bloated and having pain in his mid rib. Nausea has improved. He denied any fever or chills Objective Data Objective Data Vital Signs: Vital Signs Temp Pulse Resp BP Pulse Ox O2 Del Method 97.6 F L 96 20 H 175/101 H 97 Room Air 08/23/22 10:00 08/23/22 10:00 08/23/22 10:00 08/23/22 10:00 08/23/22 10:00 08/23/22 10:00 Oxygen Delivery Method Room Air Weight: 82.5 kg Body Mass Index (BMI) 27.6 Intake & Output: Intake and Output for Last 24 Hours 08/21/22 08/22/22 08/23/22 23:59 23:59 23:59 Intake Total 2959.85 / 2959.85 2802.5 / 2802.5 Output Total 3400 / 3400 Balance 2959.85 / 1459.85 -597.5 / -597.5 Lab / Micro Data Result Diagrams: 08/23/22 06:10 08/23/22 06:10 Labs: Laboratory Results - last 24 hr 08/22/22 15:00: WBC 21.1 H, RBC 5.30, Hgb 16.7 H, Hct 47.9, MCV 90.4, MCH 31.5, MCHC 34.9, RDW Std Deviation 41.6, RDW Coeff of Linsey 12.5, Plt Count 282, MPV 8.9, Immature Gran % (Auto) 0.800, Neut % (Auto) 83.8 H, Lymph % (Auto) 6.1 L, [place] % (Auto) 9.0, Eos % (Auto) 0.0, Baso % (Auto) 0.3, Absolute Neuts (auto) 17.7 H, Absolute Lymphs (auto) 1.28, Nucleated RBC % 0, Differential Comment SEE COMMENT, Diff Path Review May foll, Platelet Estimate ADEQUATE, Anisocytosis RARE, Macrocytosis RARE 08/22/22 15:00: Sodium 135 L, Potassium 3.7, Chloride 99, Carbon Dioxide 28.0, Anion Gap 8, BUN 11, Creatinine 1.13, Estim Creat Clear Calc 63.89, Est GFR (MDRD) Af Amer 84, Est GFR (MDRD) Non-Af 69, BUN/Creatinine Ratio 9.7 L, Glucose 140 H, Calcium 9.7, Total Bilirubin 1.30 H, Direct Bilirubin 0.50 H, AST 91 H, ALT 215 H, Alkaline Phosphatase 155 H, Troponin I High Sens Cancelled, Total Protein 8.2, Albumin 3.8, Globulin 4.4 H, Lipase 187 08/22/22 15:00: Urine Color Yellow, Urine Clarity Sl. Cloudy, Urine pH 6.5, Ur Specific [place] 1.015, Urine Protein 30 H, Urine Glucose (UA) Normal, Urine Ketones Negative, Urine Occult Blood 150 H, Urine Nitrite Negative, Urine Bilirubin Negative, Urine Urobilinogen Normal, Ur Leukocyte Esterase 25 H, Urine RBC 0 SEEN, Urine WBC 0-5 SEEN, Ur Squamous Epith Cells 0 SEEN, Urine Bacteria 0 SEEN, Urine Mucus 0 SEEN 08/23/22 06:10: WBC 20.3 H, RBC 5.05, Hgb 16.1, Hct 45.5, MCV 90.1, MCH 31.9, MCHC 35.4, RDW Std Deviation 42.1, RDW Coeff of Linsey 12.8, Plt Count 256, MPV 9.1, Immature Gran % (Auto) 0.800, Neut % (Auto) 82.4 H, Lymph % (Auto) 8.2 L, [place] % (Auto) 8.3, Eos % (Auto) 0.1, Baso % (Auto) 0.2, Absolute Neuts (auto) 16.7 H, Absolute Lymphs (auto) 1.67, Nucleated RBC % 0, Differential Comment SCANNED, Diff Path Review March08/23/22 06:10: Sodium 134 L, Potassium 3.4 L, Chloride 104, Carbon Dioxide 22.0, Anion Gap 8, BUN 7, Creatinine 0.85, Estim Creat Clear Calc 84.94, Est GFR (MDRD) Af Amer 116, Est GFR (MDRD) Non-Af 96, BUN/Creatinine Ratio 8.2 L, Glucose 123 H, Calcium 8.4 L, Total Bilirubin 1.10 H, AST 44 H, ALT 148 H, Alkaline Phosphatase 160 H, Total Protein 7.9, Albumin 3.4, Globulin 4.5 H, Albumin/Globulin Ratio 0.8 L Radiography Diagnostic Testing: Radiology Impression Chest X-Ray 08/22/22 14:56 IMPRESSION: Increased linear markings at the lung bases suggestive of bibasilar atelectasis. Electronically Signed: Son Chapman MD at 15:06 EDT , Abdomen/Pelvis CT 08/22/22 15:05 IMPRESSION: Postop change status post cholecystectomy and biliary stent placement. Findings consistent with mild acute focal pancreatitis in association with acute duodenitis Electronically Signed: Billy Mason MD at 16:26 EDT , Physical Exam Narrative Physical exam: General: Alert, Oriented x3, Cooperative, in severe discomfort HEENT: Atraumatic Oral: Moist Mucosa Neck: Supple Lungs: Clear to auscultation Cardiovascular: HS I+II, regular, no murmurs Abdomen: Bowel Sounds Present, Soft, very tender to palpation, with guarding, no rebound tenderness Extremities: No edema Skin: No rashes, No breakdown Neurological: Grossly intact Psych/Mental Status: Appropriate Assessment & Plan Assessment/Plan (1) Acute pancreatitis after endoscopic retrograde cholangiopancreatography (ERCP): (2) Hypertensive urgency: PLAN: Plan 1. Acute intractable abdominal pain secondary to displacement of pancreatic s tent/acute pancreatitis Patient is being managed conservatively Continue full liquid diet, IV fluids, pain regimen 2. Acute pancreatitis status post ERCP, GI following Continue Reglan, azithromycin, IV fluids 3. Hypertensive urgency likely secondary to #1 We will continue for now on hydralazine as needed Consider adding antihypertensive from tomorrow 4. Hypokalemia, replace, recheck in a.m. 5. LFTs likely secondary to recent ERCP, improving, will continue to trend 6. Leukocytosis, reactive, will continue to trend 7. DVT PPx- Lovenox Sc Charges/Coding Visit Charges Inpatient E&M: 92908 Init Hosp L3
[2022-08-23 13:35] LABS: Pathologist Review Reviewed
[2022-08-23 13:37] LABS: Pathologist Review Reviewed
[2022-08-23] MEDS: Acetaminophen 500 MG Tablet 1000 MG PO ×2 (14:00→21:23)
[2022-08-23] MEDS: oxyCODONE 5 MG Tablet 10 MG PO ×2 (14:00→19:54)
--- NOTE | 2022-08-23 15:33 | CHAPLAIN ---
Type of Pastoral Visit _x__ Initial Visit ___ Follow-up Visit ___ On-call Visit ___ General Patient Visit ___ Spiritual Assessment ___ Family Conference ___ Bereavement ___ Rapid Response ___ Code Blue ___ Other (describe below) Pastoral Care Referral From _x__ Patient ___ Family ___ Nurse ___ Physician ___ Balancing Machine Operator ___ Heart Nurse ___ Other (describe below) Sacrament/Intervention _x__ Active listening ___ Anointing ___ Rastafari ___ Bereavement ___ Communion ___ Shaylee exploration ___ ___ Life review _x__ Prayer ___ Reconciliation ___ Sacrament of Sick _x__ Supportive presence ___ Wedding ___ Other (describe below) Pastoral Comments patient is lying in bed and states that he has great discomfort; sister of pt is in the room with him and adds to his story of health; pt has had issues for four years and they just found out the reasons of his problem; pt is waiting on decisions by doctors and for inflammation to decrease; pt states that he is just day by day and tries to be hopeful that this can be resolved soon; pt willing to have a prayer said for his needs; pt is a non practicing Sikhism; offered support to sister too
--- NOTE | 2022-08-23 15:56 | CASEMGMT ---
RN CM TABULATING MACHINE MECHANIC CM to room to meet with patient for initial transition planning/care coordination assessment. RN ANIA introduced self and role at [facility]. Pt voices understanding and consents to assessment at this time. Pt resting in bed in no distress at this time. Pt is A/O at this time and answers all questions appropriately. Care providers, pharmacy, and demographics verified/updated at this time. PCP: Dr Ji Specialists: Dr Novak-GI, Dr Guallpa--pain mgmt in [place] Preferred Pharmacy: [facility] Retail Insurance: [facility], [employer] Prescription Benefit: Yes Living Will/HPOA: Pt states he does not have LW but that he did HPOA paperwork @ [facility] and listed his sister as HPOA. He states he does not know if he has a copy of it and is interested in completing new HPOA paperwork. Kat SORTO, made aware. Pt made aware, if SW unable to meet with him while @ [facility], that these can be completed as an OP. Pt has SS Rac card w/contact #. LNOK: 2 children: Kathleen Ulloa and Eric White. Sister, Tiffany Moncada Living Arrangements: Lives alone in one-story home w/basement w/one step to enter. Denies difficulty w/stairs. Independent w/ADL's. Son lives w/a friend but comes to stay w/pt 2-3 days a week and helps w/yard work and various things around the house. Transportation: Pt states drives self and states no transportation concerns at this time. DME: Denies using any DME and denies needs. HHC/SNF: No hx of either. No needs identified. Pt wishes to return home and states has no concerns with going home at time of discharge. Pt states does not smoke and drinks very little, stating he drinks a couple shots a week. CM to follow for any discharge planning/needs. Pt voices no concerns/needs at this time. Advised pt to ask for CM if any questions/concerns/needs arise. Voices understanding. PLAN: Home Claude COTTO RN, CM
[2022-08-23] MEDS: Polyethylene Glycol 3350 17 GM PACKET PO (16:48)
[2022-08-23] MEDS: 0.9% Normal Saline 1,000 ML 100 ML IV (16:48)
[2022-08-23] MEDS: Bisacodyl 10 MG Suppository RC (18:15)
--- NOTE | 2022-08-23 18:52 | PCM.PROGNOTE ---
Subjective Subjective Patient rates his pain at a 9 out of 10. He is having nausea. He denies any chest pain or shortness of breath. He has been up and walking around. He has not had a bowel movement in the last 3 days. Objective Data Objective Data Vital Signs: Vital Signs Temp Pulse Resp BP Pulse Ox O2 Del Method 97.4 F L 88 20 H 170/103 H 96 Room Air 08/23/22 15:41 08/23/22 15:41 08/23/22 15:41 08/23/22 15:41 08/23/22 15:41 08/23/22 15:41 Oxygen Delivery Method Room Air Weight: 181 lb 14.102 oz Body Mass Index (BMI) 27.6 Intake & Output: Intake and Output for Last 24 Hours 08/21/22 08/22/22 08/23/22 23:59 23:59 23:59 Intake Total 2959.85 / 2959.85 3686.67 / 3686.67 Output Total 4000 / 4000 Balance 2959.85 / 1459.85 -313.33 / -313.33 Lab / Micro Data Result Diagrams: 08/23/22 06:10 08/23/22 06:10 Labs: Laboratory Results - last 24 hr 08/22/22 15:00: Diff Path Review Reviewed 08/22/22 15:00: Urine RBC 0 SEEN, Urine WBC 0-5 SEEN, Ur Squamous Epith Cells 0 SEEN, Urine Bacteria 0 SEEN, Urine Mucus 0 SEEN 08/23/22 06:10: WBC 20.3 H, RBC 5.05, Hgb 16.1, Hct 45.5, MCV 90.1, MCH 31.9, MCHC 35.4, RDW Std Deviation 42.1, RDW Coeff of Linsey 12.8, Plt Count 256, MPV 9.1, Immature Gran % (Auto) 0.800, Neut % (Auto) 82.4 H, Lymph % (Auto) 8.2 L, [place] % (Auto) 8.3, Eos % (Auto) 0.1, Baso % (Auto) 0.2, Absolute Neuts (auto) 16.7 H, Absolute Lymphs (auto) 1.67, Nucleated RBC % 0, Differential Comment SCANNED, Diff Path Review Reviewed 08/23/22 06:10: Sodium 134 L, Potassium 3.4 L, Chloride 104, Carbon Dioxide 22.0, Anion Gap 8, BUN 7, Creatinine 0.85, Estim Creat Clear Calc 84.94, Est GFR (MDRD) Af Amer 116, Est GFR (MDRD) Non-Af 96, BUN/Creatinine Ratio 8.2 L, Glucose 123 H, Calcium 8.4 L, Total Bilirubin 1.10 H, AST 44 H, ALT 148 H, Alkaline Phosphatase 160 H, Total Protein 7.9, Albumin 3.4, Globulin 4.5 H, Albumin/Globulin Ratio 0.8 L Physical Exam Narrative Physical exam: General: Alert, Oriented x3, Cooperative, in severe discomfort HEENT: Atraumatic Oral: Moist Mucosa Neck: Supple Lungs: Clear to auscultation Cardiovascular: HS I+II, regular, no murmurs Abdomen: Bowel Sounds Present, Soft, very tender to palpation, with guarding, no rebound tenderness Extremities: No edema Skin: No rashes, No breakdown Neurological: Grossly intact Psych/Mental Status: Appropriate Assessment & Plan Assessment/Plan (1) Acute pancreatitis after endoscopic retrograde cholangiopancreatography (ERCP): PLAN: He does have a dislodged stent that I do not think needs to be removed at this time. At that if swelling goes down the pancreatic stent should migrate out on its own. (2) Abdominal pain: PLAN: Abdominal pain is multifactorial secondary to acute pancreatitis, ileus associated with pancreatitis, gastroparesis. I will put him on IV Reglan, azithromycin and give him a stool softener. Also will give him Dilaudid as needed for abdominal pain and 1 dose of Ativan at this time for anxiety associated abdominal pain. (3) Leukocytosis: QUALIFIERS: Leukocytosis type: unspecified Qualified Code(s): D72.829 - Elevated white blood cell count, unspecified PLAN: I think her leukocytosis is likely reactive. But I will check blood cultures x2. I will not give antibiotics at this time. Charges/Coding Visit Charges Inpatient E&M: 87191 Subs Hosp L2
[2022-08-23] MEDS: Ondansetron 4 MG/2 ML Vial IV (21:08)
[2022-08-24] MEDS: HYDROmorphone 1 MG/ML Syringe IV ×7 (01:43→21:58)
--- NOTE | 2022-08-24 01:43 | NURSING ---
pt having sever abd pain, still tying to have a bm. ambulating often in the halls. moaning and uncomforable
[2022-08-24] MEDS: 0.9% Normal Saline 1,000 ML 100 ML IV ×2 (01:55→10:33)
[2022-08-24] MEDS: Polyethylene Glycol 3350 17 GM PACKET PO (02:01)
[2022-08-24 04:00] VITALS: BP 168/98; PULSE 81; RESP 16; TEMP 36.8; O2SAT 98
--- NOTE | 2022-08-24 04:46 | NURSING ---
pt awake again, c/o having back pain and is very uncomfortable, sitting up in the recliner, was ambulating in the halls, still unable to have a bm
[2022-08-24] MEDS: LORazepam 2 MG/ML Syringe 1 MG IV (05:03)
--- NOTE | 2022-08-24 06:09 | NURSING ---
pt laying on the floor on a blanket w a pillow, stated the hard floor feels better for his back, ativan given and is helping a little bit.
[2022-08-24] MEDS: Acetaminophen 500 MG Tablet 1000 MG PO ×3 (06:54→21:57)
--- NOTE | 2022-08-24 07:13 | NURSING ---
pt still very painful, rating the pain a 10/10, mostly in his back at this time, dialudid given
[2022-08-24 08:39] LABS: Absolute Lymphocyte Count 1.53 X10^3/uL (0.83-4.51); Absolute Neutrophil Count 12.5 X10^3/uL (2.0-7.7); Basophil# 0.03 X10^3/uL; Basophil% 0.2 % (0-1); Eosinophil# 0.13 X10^3/uL; Eosinophils% 0.8 % (0-5); Hematocrit 44.1 % (40-54); Hemoglobin 15.3 g/dL (13.0-16.5); Lymphocyte # 1.53 X10^3/ul (0.83-4.51); Lymphocyte % 9.8 % (19-41); Mean Corp Hgb Conc 34.7 g/dL (32-36); Mean Corpuscular Volume 92.3 fL (80-94); Mean Platelet Vol. 8.7 fl (6.2-12.0); Monocyte# 1.27 X10^3/uL; Monocyte% 8.2 % (0-10); NRBC Flagged by Analyzer 0 % (0-5); Neutrophil # 12.52 X10^3/uL (2.7-7.7); Neutrophil % 80.4 % (47-70); Platelet Count 259 K/mm3 (150-450); RBC Distribution Width CV 12.8 % (11.6-14.6); RBC Distribution Width SD 43.5 fl (35.1-43.9); Red Blood Count 4.78 M/mm3 (4.6-6.2); White Blood Count 15.6 K/mm3 (4.4-11.0)
[2022-08-24 09:16] LABS: ALB/GLOB Ratio 0.7 RATIO (0.9-2.4); AST(SGOT) 54 U/L (15-37); Alanine Aminotransfer ALT/SGPT 118 U/L (16-61); Albumin, Serum 3.1 g/dL (3.2-5.0); Alkaline Phosphatase 225 U/L (45-117); Anion Gap 5 (5-15); BUN 8 mg/dL (7-18); BUN/Creat Ratio 9.1 RATIO (10-20); Calcium,Total 8.2 mg/dL (8.5-10.1); Chloride 101 mmol/L (98-107); Creatinine, Serum 0.88 mg/dL (0.70-1.30); EST Glomerular Filtration Rate 92 mL/min (>60); Est Glom Filt Rate - Afr Amer 112 mL/min (>60); Estimated Creatinine Clearance 82.05 ml/min; Globulin 4.3 g/dL (2.2-4.2); Glucose 117 mg/dL (74-106); Potassium 3.4 mmol/L (3.5-5.1); Protein, Total 7.4 g/dL (6.4-8.2); Sodium Level 134 mmol/L (136-145)
[2022-08-24 09:29] VITALS: BP 154/97; PULSE 69; RESP 15; TEMP 36.5; O2SAT 98
[2022-08-24] MEDS: Enoxaparin 40 MG/0.4 ML Syringe SC (10:19)
[2022-08-24] MEDS: Docusate Sodium 100 MG/10 ML UDC 200 MG PO (10:19)
[2022-08-24] MEDS: Escitalopram Oxalate 10 MG Tablet PO (10:19)
[2022-08-24] MEDS: Furosemide 20 MG/2 ML VIAL IV (10:19)
--- NOTE | 2022-08-24 11:26 | PN.HOSP_ITS ---
Subjective Subjective Follow-up on intractable abdominal pain: Patient was seen and examined.? He complains of feeling bloated and having pain in his mid rib.? Nausea has improved.? He denied any fever or chills Objective Data Objective Data Vital Signs: Vital Signs Temp Pulse Resp BP Pulse Ox O2 Del Method 97.7 F L 69 15 154/97 H 98 Room Air 08/24/22 09:29 08/24/22 09:29 08/24/22 09:29 08/24/22 09:29 08/24/22 09:29 08/24/22 09:29 Oxygen Delivery Method Room Air Weight: 82.5 kg Body Mass Index (BMI) 27.6 Intake & Output: Intake and Output for Last 24 Hours 08/22/22 08/23/22 08/24/22 23:59 23:59 23:59 Intake Total 2959.85 / 2959.85 3686.67 / 3926.67 2325.00 / 2325.00 Output Total 4000 / 4000 Balance 2959.85 / 1459.85 -313.33 / -73.33 2325.00 / 2325.00 Lab / Micro Data Result Diagrams: 08/24/22 08:30 08/24/22 08:30 Labs: Laboratory Results - last 24 hr 08/22/22 15:00: Diff Path Review Reviewed 08/23/22 06:10: Diff Path Review Reviewed 08/24/22 08:30: WBC 15.6 H, RBC 4.78, Hgb 15.3, Hct 44.1, MCV 92.3, MCH 32.0, MCHC 34.7, RDW Std Deviation 43.5, RDW Coeff of Linsey 12.8, Plt Count 259, MPV 8.7, Immature Gran % (Auto) 0.600, Neut % (Auto) 80.4 H, Lymph % (Auto) 9.8 L, [place] % (Auto) 8.2, Eos % (Auto) 0.8, Baso % (Auto) 0.2, Absolute Neuts (auto) 12.5 H, Absolute Lymphs (auto) 1.53, Nucleated RBC % 0 08/24/22 08:30: Sodium 134 L, Potassium 3.4 L, Chloride 101, Carbon Dioxide 28.0, Anion Gap 5, BUN 8, Creatinine 0.88, Estim Creat Clear Calc 82.05, Est GFR (MDRD) Af Amer 112, Est GFR (MDRD) Non-Af 92, BUN/Creatinine Ratio 9.1 L, Glucose 117 H, Calcium 8.2 L, Total Bilirubin 0.90, AST 54 H, ALT 118 H, Alkaline Phosphatase 225 H, Total Protein 7.4, Albumin 3.1 L, Globulin 4.3 H, Albumin/Globulin Ratio 0.7 L Physical Exam Narrative Physical exam: General: Alert, Oriented x3, Cooperative, in severe discomfort HEENT: Atraumatic Oral: Moist Mucosa Neck: Supple Lungs: Clear to auscultation Cardiovascular: HS I+II, regular, no murmurs Abdomen: Bowel Sounds Present, Soft, very tender to palpation, with guarding, no rebound tenderness Extremities: No edema Skin: No rashes, No breakdown Neurological: Grossly intact Psych/Mental Status: Appropriate Assessment & Plan Assessment/Plan (1) Acute pancreatitis after endoscopic retrograde cholangiopancreatography ( ERCP): (2) Hypertensive urgency: PLAN: Plan 1. Acute intractable abdominal pain secondary to displacement of pancreatic stent/acute pancreatitis Patient is being managed conservatively Continue regular diet, IV fluids, pain regimen 2. Acute pancreatitis status post ERCP, GI following Continue Reglan, azithromycin, IV fluids 3. Hypertensive urgency likely secondary to #1 Will start on amlodipine 5 mg p.o. daily Continue to monitor blood pressure 4.Hypokalemia, replace, recheck in a.m. 5. LFTs likely secondary to recent ERCP, improving, will continue to trend 6. Leukocytosis, reactive, improving, will continue to trend 7. DVT PPx- Lovenox Sc Charges/Coding Visit Charges Inpatient E&M: 06766 Subs Hosp L3
--- NOTE | 2022-08-24 11:38 | CASEMGMT ---
Yesterday MACARIO was informed by RN ANIA that patient would like to complete Advance Directives. MACARIO met with patient. Introduced self and role at [facility]. Patient confirmed he would like to complete documents, but not today. SW did leave documents with patient. He is aware he can complete them as an outpatient at [facility]. MACARIO also told patient if he changes his mind or has question to ask for SW. Kat Ayala CUT OFF SAW GRADER YUE
--- NOTE | 2022-08-24 11:50 | RAD_ITS ---
STUDY: X-RAY - ABDOMEN/PELVIS REASON FOR EXAM: Male, 62 years old. Ileus TECHNIQUE: AP supine and upright views of the abdomen and pelvis. COMPARISON: CT of abdomen and pelvis dated August 22, 2022 FINDINGS: Normal visualized lung bases. Mild gaseous distended small and large bowel loops are present. CBD stent and right upper quadrant surgical clips are stable. There is no demonstrated free abdominal air. Normal soft tissue structures. There are diffuse degenerative changes of the visualized lumbar spine. RAD/Abd Decub and/or Erect(Portabl IMPRESSION: 1. Mild gaseous distention of small and large bowel loops Electronically Signed: Triston Avila MD at 13:23 EDT ,
--- NOTE | 2022-08-24 12:11 | CASEMGMT ---
Patient does not have a Healthcare Power of Registered Account Administrator or Healthcare Living Will. RN CM spoke with patient and he requested information. SW met with patient and provided him with documents as he did not want to complete them today. Kat TURNER
[2022-08-24] MEDS: Bisacodyl 10 MG Suppository RC (13:06)
[2022-08-24] MEDS: Magnesium Hydroxide 30 ML UDC PO (13:06)
[2022-08-24 14:42] VITALS: BP 155/96; PULSE 89; RESP 16; TEMP 36.6; O2SAT 97
[2022-08-24] MEDS: amLODIPine 5 MG Tablet PO (17:39)
--- NOTE | 2022-08-24 19:30 | PCM.PROGNOTE ---
Subjective Subjective Patient is still complaining of abdominal pain and bloating. He has not had a bowel movement. He is tolerating a diet. He rates his pain at a 7 out of 10. Objective Data Objective Data Vital Signs: Vital Signs Temp Pulse Resp BP Pulse Ox O2 Del Method 98 F 89 16 155/96 H 97 Room Air 08/24/22 14:42 08/24/22 14:42 08/24/22 14:42 08/24/22 14:42 08/24/22 14:42 08/24/22 14:42 Oxygen Delivery Method Room Air Weight: 181 lb 14.102 oz Body Mass Index (BMI) 27.6 Intake & Output: Intake and Output for Last 24 Hours 08/22/22 08/23/22 08/24/22 23:59 23:59 23:59 Intake Total 2959.85 / 2959.85 3686.67 / 3926.67 3080.00 / 3080.00 Output Total 4000 / 4000 900 / 900 Balance 2959.85 / 1459.85 -313.33 / -73.33 2180.00 / 2180.00 Lab / Micro Data Result Diagrams: 08/24/22 08:30 08/24/22 08:30 Labs: Laboratory Results - last 24 hr 08/24/22 08:30: WBC 15.6 H, RBC 4.78, Hgb 15.3, Hct 44.1, MCV 92.3, MCH 32.0, MCHC 34.7, RDW Std Deviation 43.5, RDW Coeff of Linsey 12.8, Plt Count 259, MPV 8.7, Immature Gran % (Auto) 0.600, Neut % (Auto) 80.4 H, Lymph % (Auto) 9.8 L, [place] % (Auto) 8.2, Eos % (Auto) 0.8, Baso % (Auto) 0.2, Absolute Neuts (auto) 12.5 H, Absolute Lymphs (auto) 1.53, Nucleated RBC % 0 08/24/22 08:30: Sodium 134 L, Potassium 3.4 L, Chloride 101, Carbon Dioxide 28.0, Anion Gap 5, BUN 8, Creatinine 0.88, Estim Creat Clear Calc 82.05, Est GFR (MDRD) Af Amer 112, Est GFR (MDRD) Non-Af 92, BUN/Creatinine Ratio 9.1 L, Glucose 117 H, Calcium 8.2 L, Total Bilirubin 0.90, AST 54 H, ALT 118 H, Alkaline Phosphatase 225 H, Total Protein 7.4, Albumin 3.1 L, Globulin 4.3 H, Albumin/Globulin Ratio 0.7 L Radiography Diagnostic Testing: Radiology Impression Abdomen X-Ray 08/24/22 11:50 IMPRESSION: 1. Mild gaseous distention of small and large bowel loops Electronically Signed: Triston Avila MD at 13:23 EDT Reading Location ID and State: [facility] / [place] , Service support , Physical Exam Narrative Physical exam: General: Alert, Oriented x3, Cooperative, in severe discomfort HEENT: Atraumatic Oral: Moist Mucosa Neck: Supple Lungs: Clear to auscultation Cardiovascular: HS I+II, regular, no murmurs Abdomen: Bowel Sounds Present, Soft, very tender to palpation, with guarding, no rebound tenderness Extremities: No edema Skin: No rashes, No breakdown Neurological: Grossly intact Psych/Mental Status: Appropriate Assessment & Plan Assessment/Plan (1) Acute pancreatitis after endoscopic retrograde cholangiopancreatography (ERCP): PLAN: Patient is still on 2050 cc of IV fluids. He is having a good response of his hematocrit and BUN to IV therapy. (2) Duodenitis: PLAN: Continue PPI therapy I was previously ordered. (3) Upper abdominal pain: PLAN: Upper abdominal pain thought to be secondary to duodenitis and constipation. Recommend tapwater enemas along with Colace therapy and milk of magnesia. Hopefully having a bowel movement will relieve a lot of his abdominal pain. Charges/Coding Visit Charges Inpatient E&M: 90402 Subs Hosp L2
[2022-08-24] MEDS: 0.9% Saline Lock 10 ML Syringe IV (19:45)
[2022-08-24 19:48] VITALS: BP 161/98; PULSE 93; RESP 16; TEMP 36.6; O2SAT 98
[2022-08-25] MEDS: 0.9% Normal Saline 1,000 ML 100 ML IV (00:34)
[2022-08-25 02:20] VITALS: BP 164/90; PULSE 88; RESP 18; TEMP 36.7; O2SAT 97
[2022-08-25] MEDS: HYDROmorphone 1 MG/ML Syringe IV ×5 (02:20→22:38)
[2022-08-25] MEDS: Acetaminophen 500 MG Tablet 1000 MG PO ×3 (06:01→22:38)
[2022-08-25 06:49] LABS: Absolute Lymphocyte Count 2.24 X10^3/uL (0.83-4.51); Absolute Neutrophil Count 10.1 X10^3/uL (2.0-7.7); Basophil# 0.04 X10^3/uL; Basophil% 0.3 % (0-1); Eosinophil# 0.15 X10^3/uL; Eosinophils% 1.1 % (0-5); Hematocrit 45.3 % (40-54); Hemoglobin 15.8 g/dL (13.0-16.5); Lymphocyte # 2.24 X10^3/ul (0.83-4.51); Lymphocyte % 16.1 % (19-41); Mean Corp Hgb Conc 34.9 g/dL (32-36); Mean Corpuscular Hgb 31.6 pg (27.0-32.0); Mean Corpuscular Volume 90.6 fL (80-94); Mean Platelet Vol. 8.7 fl (6.2-12.0); Monocyte# 1.31 X10^3/uL; Monocyte% 9.4 % (0-10); NRBC Flagged by Analyzer 0 % (0-5); Neutrophil # 10.07 X10^3/uL (2.7-7.7); Neutrophil % 72.5 % (47-70); Platelet Count 299 K/mm3 (150-450); RBC Distribution Width CV 12.7 % (11.6-14.6); RBC Distribution Width SD 42.4 fl (35.1-43.9); White Blood Count 13.9 K/mm3 (4.4-11.0)
[2022-08-25 07:18] LABS: ALB/GLOB Ratio 0.7 RATIO (0.9-2.4); AST(SGOT) 48 U/L (15-37); Alanine Aminotransfer ALT/SGPT 114 U/L (16-61); Albumin, Serum 3.1 g/dL (3.2-5.0); Alkaline Phosphatase 328 U/L (45-117); Anion Gap 7 (5-15); BUN 11 mg/dL (7-18); BUN/Creat Ratio 13.7 RATIO (10-20); Calcium,Total 8.5 mg/dL (8.5-10.1); Chloride 102 mmol/L (98-107); EST Glomerular Filtration Rate 103 mL/min (>60); Est Glom Filt Rate - Afr Amer 124 mL/min (>60); Estimated Creatinine Clearance 90.25 ml/min; Globulin 4.6 g/dL (2.2-4.2); Glucose 106 mg/dL (74-106); Potassium 3.4 mmol/L (3.5-5.1); Protein, Total 7.7 g/dL (6.4-8.2); Sodium Level 135 mmol/L (136-145)
[2022-08-25 08:45] VITALS: BP 157/95; PULSE 84; RESP 18; TEMP 36.4; O2SAT 98
[2022-08-25] MEDS: Enoxaparin 40 MG/0.4 ML Syringe SC (09:13)
[2022-08-25] MEDS: Docusate Sodium 100 MG/10 ML UDC 200 MG PO (09:13)
[2022-08-25] MEDS: Potassium Chloride Oral Tablet 20 MEQ 60 MEQ PO (09:14)
[2022-08-25] MEDS: Polyethylene Glycol 3350 17 GM PACKET PO (09:14)
[2022-08-25] MEDS: Furosemide 20 MG/2 ML VIAL IV (09:14)
[2022-08-25] MEDS: amLODIPine 5 MG Tablet PO (09:21)
[2022-08-25] MEDS: 0.9% Normal Saline 1,000 ML 150 ML IV ×2 (10:19→19:59)
--- NOTE | 2022-08-25 13:02 | PCM.PN.HOSP ---
Subjective Subjective Follow-up on intractable abdominal pain: Patient was seen and examined.? He complains of feeling bloated and having pain in his mid rib.? Nausea has improved.? He denied any fever or chills Objective Data Objective Data Vital Signs: Vital Signs Temp Pulse Resp BP Pulse Ox O2 Del Method 97.6 F L 84 18 157/95 H 98 Room Air 08/25/22 08:45 08/25/22 08:45 08/25/22 08:45 08/25/22 08:45 08/25/22 08:45 08/25/22 08:45 Oxygen Delivery Method Room Air Weight: 82.5 kg Body Mass Index (BMI) 27.6 Intake & Output: Intake and Output for Last 24 Hours 08/23/22 08/24/22 08/25/22 23:59 23:59 23:59 Intake Total 3686.67 / 3926.67 4080.00 / 4080.00 2845.00 / 2845.00 Output Total 4000 / 4000 900 / 900 Balance -313.33 / -73.33 3180.00 / 3180.00 2845.00 / 2845.00 Lab / Micro Data Result Diagrams: 08/25/22 06:10 08/25/22 06:10 Labs: Laboratory Results - last 24 hr 08/25/22 06:10: WBC 13.9 H, RBC 5.00, Hgb 15.8, Hct 45.3, MCV 90.6, MCH 31.6, MCHC 34.9, RDW Std Deviation 42.4, RDW Coeff of Linsey 12.7, Plt Count 299, MPV 8.7, Immature Gran % (Auto) 0.600, Neut % (Auto) 72.5 H, Lymph % (Auto) 16.1 L, [place] % (Auto) 9.4, Eos % (Auto) 1.1, Baso % (Auto) 0.3, Absolute Neuts (auto) 10.1 H, Absolute Lymphs (auto) 2.24, Nucleated RBC % 0 08/25/22 06:10: Sodium 135 L, Potassium 3.4 L, Chloride 102, Carbon Dioxide 26.0, Anion Gap 7, BUN 11, Creatinine 0.80, Estim Creat Clear Calc 90.25, Est GFR (MDRD) Af Amer 124, Est GFR (MDRD) Non-Af 103, BUN/Creatinine Ratio 13.7, Glucose 106, Calcium 8.5, Total Bilirubin 0.80, AST 48 H, ALT 114 H, Alkaline Phosphatase 328 H, Total Protein 7.7, Albumin 3.1 L, Globulin 4.6 H, Albumin/Globulin Ratio 0.7 L Radiography Diagnostic Testing: Radiology Impression Abdomen X-Ray 08/24/22 11:50 IMPRESSION: 1. Mild gaseous distention of small and large bowel loops Electronically Signed: Triston Avila MD at 13:23 EDT Reading Location ID and State: [facility] / [place] , Service support , Physical Exam Narrative Physical exam: General: Alert, Oriented x3, Cooperative, mild abdominal discomfort HEENT: Atraumatic Oral: Moist Mucosa Neck: Supple Lungs: Clear to auscultation Cardiovascular: HS I+II, regular, no murmurs Abdomen: Bowel Sounds Present, Soft, very tender to palpation, with guarding, no rebound tenderness Extremities: No edema Skin: No rashes, No breakdown Neurological: Grossly intact Psych/Mental Status: Appropriate Assessment & Plan Assessment/Plan (1) Acute pancreatitis after endoscopic retrograde cholangiopancreatography (ERCP): (2) Hypertensive urgency: PLAN: Plan 1. Acute intractable abdominal pain secondary to displacement of pancreatic stent/acute pancreatitis Pain is improving, continue regular diet, IV fluids, pain regimen 2. Acute pancreatitis status post ERCP, GI following Continue Reglan, azithromycin, IV fluids 3. Hypertensive urgency likely secondary to #1 Patient remains uncontrolled Increase amlodipine to 10 mg p.o. daily Continue to monitor blood pressure 4.Hypokalemia, replace, recheck in a.m. Start daily potassium replacement 5. LFTs likely secondary to recent ERCP, improving, will continue to trend 6. Leukocytosis, reactive, improving, will continue to trend 7. Constipation, passing gas, continue stool softners 8. DVT PPx- Lovenox Sc Charges/Coding Visit Charges Inpatient E&M: 58887 Subs Hosp L2
[2022-08-25 14:45] VITALS: BP 144/83; PULSE 85; RESP 18; TEMP 36.8; O2SAT 98
[2022-08-25 17:10] VITALS: BP 143/71; PULSE 78; RESP 18; TEMP 36.7; O2SAT 98
[2022-08-25] MEDS: Metoclopramide 10 MG/2 ML Vial 5 MG IV ×2 (17:11→22:46)
[2022-08-25 19:55] VITALS: BP 135/82; PULSE 83; RESP 20; TEMP 37; O2SAT 98
[2022-08-26 02:46] VITALS: BP 144/69; PULSE 69; RESP 18; TEMP 36.7; O2SAT 99
[2022-08-26] MEDS: HYDROmorphone 1 MG/ML Syringe IV ×3 (02:47→07:53)
[2022-08-26] MEDS: 0.9% Normal Saline 1,000 ML 150 ML IV (02:47)
[2022-08-26 05:11] VITALS: BP 150/90; PULSE 72; RESP 16; TEMP 36.7; O2SAT 99
[2022-08-26] MEDS: Metoclopramide 10 MG/2 ML Vial 5 MG IV ×3 (05:15→17:10)
[2022-08-26 06:00] LABS: Absolute Lymphocyte Count 2.51 X10^3/uL (0.83-4.51); Absolute Neutrophil Count 10.1 X10^3/uL (2.0-7.7); Basophil# 0.07 X10^3/uL; Basophil% 0.5 % (0-1); Eosinophil# 0.15 X10^3/uL; Hematocrit 46.9 % (40-54); Lymphocyte # 2.51 X10^3/ul (0.83-4.51); Lymphocyte % 17.5 % (19-41); Mean Corp Hgb Conc 34.1 g/dL (32-36); Mean Corpuscular Hgb 31.5 pg (27.0-32.0); Mean Corpuscular Volume 92.3 fL (80-94); Mean Platelet Vol. 8.6 fl (6.2-12.0); Monocyte# 1.35 X10^3/uL; Monocyte% 9.4 % (0-10); NRBC Flagged by Analyzer 0 % (0-5); Neutrophil # 10.13 X10^3/uL (2.7-7.7); Neutrophil % 70.9 % (47-70); Platelet Count 376 K/mm3 (150-450); RBC Distribution Width CV 12.6 % (11.6-14.6); RBC Distribution Width SD 42.9 fl (35.1-43.9); Red Blood Count 5.08 M/mm3 (4.6-6.2); White Blood Count 14.3 K/mm3 (4.4-11.0)
[2022-08-26 06:38] LABS: ALB/GLOB Ratio 0.7 RATIO (0.9-2.4); AST(SGOT) 44 U/L (15-37); Alanine Aminotransfer ALT/SGPT 115 U/L (16-61); Albumin, Serum 3.3 g/dL (3.2-5.0); Alkaline Phosphatase 424 U/L (45-117); Anion Gap 7 (5-15); BUN 12 mg/dL (7-18); BUN/Creat Ratio 12.5 RATIO (10-20); Calcium,Total 8.8 mg/dL (8.5-10.1); Chloride 102 mmol/L (98-107); Creatinine, Serum 0.96 mg/dL (0.70-1.30); EST Glomerular Filtration Rate 84 mL/min (>60); Est Glom Filt Rate - Afr Amer 101 mL/min (>60); Estimated Creatinine Clearance 75.21 ml/min; Glucose 115 mg/dL (74-106); Potassium 3.9 mmol/L (3.5-5.1); Protein, Total 8.3 g/dL (6.4-8.2); Sodium Level 136 mmol/L (136-145)
[2022-08-26] MEDS: Potassium Chloride Oral Tablet 20 MEQ 40 MEQ PO (07:53)
[2022-08-26] MEDS: 0.9% Saline Lock 10 ML Syringe IV ×3 (07:53→21:28)
[2022-08-26] MEDS: Enoxaparin 40 MG/0.4 ML Syringe SC (09:19)
[2022-08-26] MEDS: Furosemide 20 MG/2 ML VIAL IV (09:20)
[2022-08-26] MEDS: Docusate Sodium 100 MG/10 ML UDC 200 MG PO (09:20)
[2022-08-26] MEDS: Polyethylene Glycol 3350 17 GM PACKET PO (09:20)
[2022-08-26] MEDS: amLODIPine 5 MG Tablet PO (09:21)
[2022-08-26 11:00] VITALS: BP 149/88; PULSE 85; RESP 18; TEMP 36.8; O2SAT 96
[2022-08-26] MEDS: oxyCODONE 5 MG Tablet 10 MG PO ×3 (12:21→21:27)
--- NOTE | 2022-08-26 12:21 | PN.HOSP_ITS ---
Subjective Subjective Follow-up on intractable abdominal pain: Patient was seen and examined.? He has had multiple bowel movements. He is currently tolerating an increase in his diet. Patient still insists that he is in pain. He stated that he has high pain tolerance. He has history of anxiety and insomnia and takes multiple doses of Tylenol PM as well as Flexeril. I reassured him that we would discontinue IV Dilaudid to prepare him for going home. He was going to be maintained only on oral oxycodone. Objective Data Objective Data Vital Signs: Vital Signs Temp Pulse Resp BP Pulse Ox O2 Del Method 98.2 F 85 18 149/88 H 96 Room Air 08/26/22 11:00 08/26/22 11:00 08/26/22 11:00 08/26/22 11:00 08/26/22 11:00 08/26/22 11:00 Oxygen Delivery Method Room Air Weight: 82.5 kg Body Mass Index (BMI) 27.6 Intake & Output: Intake and Output for Last 24 Hours 08/24/22 08/25/22 08/26/22 23:59 23:59 23:59 Intake Total 4080.00 / 4080.00 4325.00 / 4325.00 2915 / 2915 Output Total 900 / 900 Balance 3180.00 / 3180.00 4325.00 / 4325.00 2915 / 2915 Lab / Micro Data Result Diagrams: 08/26/22 05:45 08/26/22 05:45 Labs: Laboratory Results - last 24 hr 08/26/22 05:45: WBC 14.3 H, RBC 5.08, Hgb 16.0, Hct 46.9, MCV 92.3, MCH 31.5, MCHC 34.1, RDW Std Deviation 42.9, RDW Coeff of Linsey 12.6, Plt Count 376, MPV 8.6 , Immature Gran % (Auto) 0.700, Neut % (Auto) 70.9 H, Lymph % (Auto) 17.5 L, [place] % (Auto) 9.4, Eos % (Auto) 1.0, Baso % (Auto) 0.5, Absolute Neuts (auto) 10.1 H, Absolute Lymphs (auto) 2.51, Nucleated RBC % 0 08/26/22 05:45: Sodium 136, Potassium 3.9, Chloride 102, Carbon Dioxide 27.0, Anion Gap 7, BUN 12, Creatinine 0.96, Estim Creat Clear Calc 75.21, Est GFR (MDRD) Af Amer 101, Est GFR (MDRD) Non-Af 84, BUN/Creatinine Ratio 12.5, Glucose 115 H, Calcium 8.8, Total Bilirubin 0.80, AST 44 H, ALT 115 H, Alkaline Phosphatase 424 H, Total Protein 8.3 H, Albumin 3.3, Globulin 5.0 H, Albumin/Globulin Ratio 0.7 L Micro: Microbiology 08/23/22 20:30 Blood Culture (Wb) - Right Hand Blood Culture - Preliminary No growth in 48 hours. 08/23/22 20:25 Blood Culture (Wb) - Anticubital Right Blood Culture - Preliminary No growth in 48 hours. Physical Exam Narrative Physical exam: General: Alert, Oriented x3, Cooperative, mild abdominal discomfort HEENT: Atraumatic Oral: Moist Mucosa Neck: Supple Lungs: Clear to auscultation Cardiovascular: HS I+II, regular, no murmurs Abdomen: Bowel Sounds Present, Soft, very tender to palpation, with guarding, no rebound tenderness Extremities: No edema Skin: No rashes, No breakdown Neurological: Grossly intact Psych/Mental Status: Appropriate Assessment & Plan Assessment/Plan (1) Acute pancreatitis after endoscopic retrograde cholangiopancreatography (ERCP): (2) Hypertensive urgency: PLAN: Plan 62-year-old male with past medical history of biliary duct strictures status post ERCP with sphincterotomy, common bile dilatation and 1 stent placed into the common bile duct on 08/20/22. Patient presented on 08/22/2022 with severe abdominal pain. CT of the abdomen pelvis had shown acute pancreatitis and pancreatic stent displacement. 1. Acute intractable abdominal pain secondary to displacement of pancreatic stent/acute pancreatitis Pain is improving, continue regular diet, IV fluids, Patient understands that we would try to mimic going home with oral pain medicines instead of IV Dilaudid We will continue to monitor 2. Acute pancreatitis status post ERCP, GI following Continue Reglan, azithromycin 3. Hypertensive urgency likely secondary to #1 Blood pressure is better controlled Continue on amlodipine 10 mg p.o. daily Continue to monitor blood pressure 4.Hypokalemia, resolved 5. LFTs likely secondary to recent ERCP, improving, will continue to trend 6. Leukocytosis, reactive, improving, will continue to trend 7. Constipation, resolved, continue stool softners 8. DVT PPx- Lovenox Sc Charges/Coding Visit Charges Inpatient E&M: 83070 Subs Hosp L2
[2022-08-26] MEDS: cycloBENZAPRine HCl 10 MG Tablet PO (15:40)
[2022-08-26 17:00] VITALS: BP 147/98; PULSE 79; RESP 18; TEMP 36.6; O2SAT 98
[2022-08-26 21:21] VITALS: BP 153/66; PULSE 93; RESP 18; TEMP 36.9; O2SAT 98
[2022-08-26] MEDS: Acetaminophen 500 MG Tablet 1000 MG PO (21:27)
[2022-08-26] MEDS: tiZANidine HCl 2 MG Tablet 4 MG PO (21:28)
[2022-08-26] MEDS: DiphenhydrAMINE 25 MG Capsule 50 MG PO (21:28)
[2022-08-27] VITALS (9 sets, daily range): BP systolic 112–151; BP diastolic 69–95; PULSE 63–93; RESP 16–20; TEMP 36.4–37.4; O2SAT 97–100; BMI 27.6
[2022-08-27] MEDS: Metoclopramide 10 MG/2 ML Vial 5 MG IV ×5 (00:52→23:04)
[2022-08-27] MEDS: cycloBENZAPRine HCl 10 MG Tablet PO ×2 (00:53→09:54)
[2022-08-27] MEDS: 0.9% Saline Lock 10 ML Syringe IV ×5 (01:07→23:04)
[2022-08-27] MEDS: oxyCODONE 5 MG Tablet 10 MG PO ×3 (03:29→21:30)
[2022-08-27 05:31] LABS: Absolute Lymphocyte Count 2.08 X10^3/uL (0.83-4.51); Absolute Neutrophil Count 7.6 X10^3/uL (2.0-7.7); Basophil# 0.07 X10^3/uL; Basophil% 0.6 % (0-1); Eosinophil# 0.25 X10^3/uL; Eosinophils% 2.2 % (0-5); Hematocrit 42.8 % (40-54); Hemoglobin 15.3 g/dL (13.0-16.5); Lymphocyte # 2.08 X10^3/ul (0.83-4.51); Lymphocyte % 18.1 % (19-41); Mean Corp Hgb Conc 35.7 g/dL (32-36); Mean Corpuscular Hgb 32.1 pg (27.0-32.0); Mean Corpuscular Volume 89.9 fL (80-94); Mean Platelet Vol. 8.5 fl (6.2-12.0); Monocyte# 1.38 X10^3/uL; NRBC Flagged by Analyzer 0 % (0-5); Neutrophil # 7.58 X10^3/uL (2.7-7.7); Neutrophil % 65.9 % (47-70); Platelet Count 323 K/mm3 (150-450); RBC Distribution Width CV 12.7 % (11.6-14.6); RBC Distribution Width SD 42.1 fl (35.1-43.9); Red Blood Count 4.76 M/mm3 (4.6-6.2); White Blood Count 11.5 K/mm3 (4.4-11.0)
[2022-08-27] MEDS: tiZANidine HCl 2 MG Tablet 4 MG PO ×2 (05:49→23:03)
[2022-08-27 06:41] LABS: ALB/GLOB Ratio 0.7 RATIO (0.9-2.4); AST(SGOT) 47 U/L (15-37); Alanine Aminotransfer ALT/SGPT 115 U/L (16-61); Albumin, Serum 2.9 g/dL (3.2-5.0); Alkaline Phosphatase 449 U/L (45-117); Anion Gap 9 (5-15); BUN 16 mg/dL (7-18); BUN/Creat Ratio 19.7 RATIO (10-20); Calcium,Total 8.8 mg/dL (8.5-10.1); Chloride 102 mmol/L (98-107); Creatinine, Serum 0.81 mg/dL (0.70-1.30); EST Glomerular Filtration Rate 102 mL/min (>60); Est Glom Filt Rate - Afr Amer 123 mL/min (>60); Estimated Creatinine Clearance 89.14 ml/min; Globulin 4.3 g/dL (2.2-4.2); Glucose 106 mg/dL (74-106); Potassium 3.6 mmol/L (3.5-5.1); Protein, Total 7.2 g/dL (6.4-8.2); Sodium Level 135 mmol/L (136-145)
--- NOTE | 2022-08-27 08:38 | PN.HOSP_ITS ---
Subjective Subjective DOS 08/27/22 CC abd pain Pt reports this AM he continues to have 8/10 abd pain radiating from 1in above belly button towards right side. Best it gets is a 6/10 and is always present. No n/v at this time. Reports he has been having BMs. Denies other complaints today but reports minimal relief overall. Objective Data Objective Data Vital Signs: Vital Signs Temp Pulse Resp BP Pulse Ox O2 Del Method 97.5 F L 63 18 143/95 H 100 Room Air 08/27/22 03:24 08/27/22 03:24 08/27/22 03:24 08/27/22 03:24 08/27/22 03:24 08/27/22 08:16 Oxygen Delivery Method Room Air Weight: 82.5 kg Body Mass Index (BMI) 27.6 Intake & Output: Intake and Output for Last 24 Hours 08/25/22 08/26/22 08/27/22 23:59 23:59 23:59 Intake Total 4325.00 / 4325.00 3565 / 3565 Balance 4325.00 / 4325.00 3565 / 3565 Lab / Micro Data Result Diagrams: 08/27/22 05:12 08/27/22 05:12 Labs: Laboratory Results - last 24 hr 08/27/22 05:12: WBC 11.5 H, RBC 4.76, Hgb 15.3, Hct 42.8, MCV 89.9, MCH 32.1 H, MCHC 35.7, RDW Std Deviation 42.1, RDW Coeff of Linsey 12.7, Plt Count 323, MPV 8.5, Immature Gran % (Auto) 1.200 H, Neut % (Auto) 65.9, Lymph % (Auto) 18.1 L, [place] % (Auto) 12.0 H, Eos % (Auto) 2.2, Baso % (Auto) 0.6, Absolute Neuts (auto) 7.6, Absolute Lymphs (auto) 2.08, Nucleated RBC % 0 08/27/22 05:12: Sodium 135 L, Potassium 3.6, Chloride 102, Carbon Dioxide 24.0, Anion Gap 9, BUN 16, Creatinine 0.81, Estim Creat Clear Calc 89.14, Est GFR (MDRD) Af Amer 123, Est GFR (MDRD) Non-Af 102, BUN/Creatinine Ratio 19.7, Glucose 106, Calcium 8.8, Total Bilirubin 0.50, AST 47 H, ALT 115 H, Alkaline Phosphatase 449 H, Total Protein 7.2, Albumin 2.9 L, Globulin 4.3 H, Albumin/Globulin Ratio 0.7 L Micro: Microbiology 08/23/22 20:30 Blood Culture (Wb) - Right Hand Blood Culture - Preliminary No growth in 48 hours. 08/23/22 20:25 Blood Culture (Wb) - Anticubital Right Blood Culture - Preliminary No growth in 48 hours. Physical Exam Const alert and no apparent distress Constitutional Narrative: Oriented HEENT normocephalic and head/scalp atraumatic Eyes Eyes Narrative: EOM grossly intact, anicteric Neck supple Resp normal respiratory effort and clear to auscultation bilaterally Cardio regular rate and regular rhythm GI GI Narrative: Soft to palpation, mild tenderness diffusely, mod in upper abdomen, no rebound, guarding, or rigidity Extremity Extremity Narrative: No edema appreciated Neuro moves all extremities Neuro Narrative: No overt focal deficits appreciated Psych Psych Narrative: Cooperative Assessment & Plan Assessment/Plan (1) Acute pancreatitis after endoscopic retrograde cholangiopancreatography (ERCP): (2) Hypertensive urgency: PLAN: Plan 62-year-old male with past medical history of biliary duct strictures status pos t ERCP with sphincterotomy, common bile dilatation and 1 stent placed into the common bile duct on 08/20/22. Patient presented on 08/22/2022 with severe abdominal pain. CT of the abdomen pelvis had shown acute pancreatitis and pancreatic stent displacement. 1. Acute intractable abdominal pain secondary to displacement of pancreatic stent/acute pancreatitis Pain has continued, on oral oxy 10 prn Patient understands that we would try to mimic going home with oral pain medicines instead of IV Dilaudid Possible stent removal this admission given intractable nature- appreciate GI recs, will monitor closely 2. Acute pancreatitis status post ERCP, GI following Continue Reglan, azithromycin 3. Hypertensive urgency likely secondary to #1 Blood pressure is better controlled Continue on amlodipine 10 mg p.o. daily Continue to monitor blood pressure 4.Hypokalemia, resolved 5. LFTs likely secondary to recent ERCP, AST/ALT improving, ALP has remained elevated, however 6. Leukocytosis, reactive, improving, will continue to trend 7. Constipation, resolved, continue stool softners 8. DVT PPx- Lovenox Sc Charges/Coding Visit Charges Inpatient E&M: 93438 Subs Hosp L2
[2022-08-27] MEDS: Potassium Chloride Oral Tablet 20 MEQ 40 MEQ PO (09:53)
[2022-08-27] MEDS: amLODIPine 5 MG Tablet PO (09:53)
[2022-08-27] MEDS: Escitalopram Oxalate 10 MG Tablet PO (09:53)
[2022-08-27] MEDS: Polyethylene Glycol 3350 17 GM PACKET PO (09:54)
[2022-08-27] MEDS: Docusate Sodium 100 MG/10 ML UDC 200 MG PO (09:54)
[2022-08-27] MEDS: Enoxaparin 40 MG/0.4 ML Syringe SC (09:58)
--- NOTE | 2022-08-27 15:04 | CHAPLAIN ---
Type of Pastoral Visit ___ Initial Visit _x__ Follow-up Visit ___ On-call Visit ___ General Patient Visit ___ Spiritual Assessment ___ Family Conference ___ Bereavement ___ Rapid Response ___ Code Blue ___ Other (describe below) Pastoral Care Referral From ___ Patient _x__ Family ___ Nurse ___ Physician ___ Marketing Liaison ___ Legal Office Administrator ___ Other (describe below) Sacrament/Intervention ___ Active listening ___ Anointing ___ Jainism ___ Bereavement ___ Communion ___ [place] exploration ___ ___ Life review _x__ Prayer ___ Reconciliation ___ Sacrament of Sick _x__ Supportive presence ___ Wedding ___ Other (describe below) Pastoral Comments patient had just been taken to OR for surgery; sister was in the room; follow up with family member about the patient's current condition; sister is hopeful but concerned about finding out how to help the pt; prayer was given in the room for patient in surgery
--- NOTE | 2022-08-27 15:28 | RAD_ITS ---
CLINICAL HISTORY: Male, 62 years old. Pain. PROCEDURE: ERCP FLUOROSCOPY TIME (if supplied): 104 seconds. 30.63 mGy. TECHNIQUE: Fluoroscopic guidance was provided during the performance of an ERCP. 7 images were presented for interpretation. The initial image demonstrates a endoscope in the duodenum. There appears to be cannulization of the pancreatic duct in the first 3 images. The first image demonstrates a catheter extending into the CBD with contrast injection. There is poor distention of the CBD which does not demonstrate filling defect. Image 5 and 6 demonstrates more extensive filling of the biliary ductal system. There is no stricture or filling defect or dilatation. The final image demonstrates contrast extending outward into the duodenum. The scope is absent. Please refer to the operative report for further details. RAD/ERCP Biliary/Pancreas IMPRESSION: Fluoroscopic guidance provided during an ERCP. Electronically Signed: Logan Claire DO at 16:37 EDT ,
--- NOTE | 2022-08-27 16:21 | OP.ERCP_ITS ---
Patient Name: Kamlesh Carter Procedure Date: 08/27/2022 3:04 PM Date of : 1960 Age: 62 Procedure: ERCP Indications: Pancreatic duct stricture, Unexplained acute pancreatitis Providers: Sb Novak DO Medicines: Monitored Anesthesia Care Patient Profile: This is a 62 year old male. Refer to note in patient chart for documentation of history and physical. Patient has symptoms of acute abdominal cramping, chronic abdominal distention and acute nausea. Complications: No immediate complications. Procedure: Pre-Anesthesia Assessment: - Prior to the procedure, a History and Physical was performed, and patient medications and allergies were reviewed. The risks and benefits of the procedure and the sedation options and risks were discussed with the patient. All questions were answered and informed consent was obtained. Patient identification and proposed procedure were verified by the physician in the pre-procedure area. Mental Status Examination: alert and oriented. Airway Examination: normal oropharyngeal airway and neck mobility. Respiratory Examination: clear to auscultation. CV Examination: normal. Prophylactic Antibiotics: The patient does not require prophylactic antibiotics. Prior Anticoagulants: The patient has taken no previous anticoagulant or antiplatelet agents. ASA Grade Assessment: II - A patient with mild systemic disease. After reviewing the risks and benefits, the patient was deemed in satisfactory condition to undergo the procedure. The anesthesia plan was to use monitored anesthesia care (MAC). Immediately prior to administration of medications, the patient was re-assessed for adequacy to receive sedatives. The heart rate, respiratory rate, oxygen saturations, blood pressure, adequacy of pulmonary ventilation, and response to care were monitored throughout the procedure. The physical status of the patient was re-assessed after the procedure. After obtaining informed consent, the scope was passed under direct vision. Throughout the procedure, the patient's blood pressure, pulse, and oxygen saturations were monitored continuously. The Duodenoscope was introduced through the mouth, and advanced to the duodenum and used to inject contrast into the bile duct. The ERCP was accomplished without difficulty. The patient tolerated the procedure well. Scope In: 3:38:57 PM Scope Out: 4:02:57 PM Total Procedure Duration Time 0 hours 24 minutes 0 seconds Findings: The cigar head piercer film was normal. The esophagus was successfully intubated under direct vision. The scope was advanced to a normal major papilla in the descending duodenum without detailed examination of the pharynx, larynx and associated structures, and upper GI tract. The upper GI tract was grossly normal. The bile duct was deeply cannulated. Contrast was injected. I personally interpreted the bile duct images. There was brisk flow of contrast through the ducts. Image quality was excellent. Contrast extended to the entire biliary tree. Opacification of the entire biliary tree except for the gallbladder and main bile duct was successful. The maximum diameter of the ducts was 7 mm. The lower third of the main bile duct contained a single localized stenosis 6 mm in length. The main bile duct was moderately dilated and diffusely dilated, uncertain significance. The largest diameter was 9 mm. A cholecystectomy had been performed. A straight Roadrunner wire was passed into the biliary tree. A 5 mm biliary sphincterotomy was made with a traction (standard) sphincterotome using ERBE electrocautery. The sphincterotomy oozed blood. The biliary tree was swept with a 15 mm balloon starting at the bifurcation. Sludge was swept from the duct. Two stents were removed from the biliary tree and the pancreatic duct using a snare. The stents were found to be partially occluded via the water column test. Dilation of the common bile duct with a 6-7-8 mm balloon (to a maximum balloon size of 8 mm) dilator was successful. The pancreatic duct contained one temporary stent. This was found to be partially occluded. The stent was removed using a snare. It was shown to be partially occluded via the water column test. A 4 Fr by 5 cm temporary stent with two external flaps was placed 5 cm into the pancreatic duct. Clear fluid flowed through the stent. The stent was in good position. Impression: - A single localized biliary stricture was found in the lower third of the main bile duct. The stricture was post-surgical. - The entire main bile duct was moderately dilated, uncertain significance. - The patient has had a cholecystectomy. - A biliary sphincterotomy was performed. - The biliary tree was swept and sludge was found. - Two stents were removed from the biliary tree and the pancreatic duct. - Common bile duct was successfully dilated. - One stent was exchanged in the pancreatic duct. Recommendation: Gabapentin 300 mg 3 times daily Protonix 40 mg twice daily Procedure Code(s): --- Professional --- 76698, Endoscopic retrograde cholangiopancreatography (ERCP); with removal and exchange of stent(s), biliary or pancreatic duct, including pre- and post-dilation and guide wire passage, when performed, including sphincterotomy, when performed, each stent exchanged 26120, 59, Endoscopic retrograde cholangiopancreatography (ERCP); with trans-endoscopic balloon dilation of biliary/pancreatic duct(s) or of ampulla (sphincteroplasty), including sphincterotomy, when performed, each duct 67945, Endoscopic retrograde cholangiopancreatography (ERCP); with removal of calculi/debris from biliary/pancreatic duct(s) 46272, 26, Endoscopic catheterization of the biliary ductal system, radiological supervision and interpretation CPT copyright 2017 [employer]. All rights reserved. The codes documented in this report are preliminary and upon outpatient coder review may be revised to meet current compliance requirements. Sb Novak DO 08/27/2022 4:21:21 PM This report has been signed electronically. Number of Addenda: 0 Note Initiated On: 08/27/2022 3:04 PM
--- NOTE | 2022-08-27 16:22 | OP.CCLET_ITS ---
08/27/2022 Alex Ji Re : ERCP procedure for Kamlesh Carter Dear Margy This procedure was performed on Saturday, August 27, 2022. My impressions and recommendations are as follows: Impressions : - A single localized biliary stricture was found in the lower third of the main bile duct. The stricture was post-surgical. - The entire main bile duct was moderately dilated, uncertain significance. - The patient has had a cholecystectomy. - A biliary sphincterotomy was performed. - The biliary tree was swept and sludge was found. - Two stents were removed from the biliary tree and the pancreatic duct. - Common bile duct was successfully dilated. - One stent was exchanged in the pancreatic duct. Recommendations : Gabapentin 300 mg 3 times daily Protonix 40 mg twice daily My findings are described in the full procedure note, which is enclosed. If I can be of further assistance, please feel free to contact me at . Sincerely, Sb Novak, 08/27/2022 4:21:21 PM This report has been signed electronically.
[2022-08-27] MEDS: Acetaminophen 500 MG Tablet 1000 MG PO (21:30)
[2022-08-27] MEDS: DiphenhydrAMINE 25 MG Capsule 50 MG PO (23:04)
[2022-08-28 03:25] VITALS: BP 140/62; PULSE 71; RESP 20; TEMP 35.8; O2SAT 96
[2022-08-28] MEDS: Acetaminophen 500 MG Tablet 1000 MG PO (05:05)
[2022-08-28] MEDS: oxyCODONE 5 MG Tablet 10 MG PO (05:05)
[2022-08-28] MEDS: Metoclopramide 10 MG/2 ML Vial 5 MG IV (05:06)
[2022-08-28] MEDS: 0.9% Saline Lock 10 ML Syringe IV (05:06)
[2022-08-28] MEDS: cycloBENZAPRine HCl 10 MG Tablet PO (06:06)
[2022-08-28 06:10] LABS: Absolute Lymphocyte Count 1.77 X10^3/uL (0.83-4.51); Absolute Neutrophil Count 9.3 X10^3/uL (2.0-7.7); Basophil# 0.04 X10^3/uL; Basophil% 0.3 % (0-1); Eosinophil# 0.01 X10^3/uL; Eosinophils% 0.1 % (0-5); Hemoglobin 15.3 g/dL (13.0-16.5); Lymphocyte # 1.77 X10^3/ul (0.83-4.51); Lymphocyte % 14.7 % (19-41); Mean Corpuscular Hgb 30.8 pg (27.0-32.0); Mean Corpuscular Volume 90.5 fL (80-94); Mean Platelet Vol. 8.7 fl (6.2-12.0); Monocyte# 0.83 X10^3/uL; Monocyte% 6.9 % (0-10); NRBC Flagged by Analyzer 0 % (0-5); Neutrophil # 9.25 X10^3/uL (2.7-7.7); Neutrophil % 76.8 % (47-70); Platelet Count 413 K/mm3 (150-450); RBC Distribution Width CV 12.2 % (11.6-14.6); RBC Distribution Width SD 41.1 fl (35.1-43.9); Red Blood Count 4.97 M/mm3 (4.6-6.2); White Blood Count 12.1 K/mm3 (4.4-11.0)
[2022-08-28 07:00] LABS: ALB/GLOB Ratio 0.8 RATIO (0.9-2.4); AST(SGOT) 37 U/L (15-37); Alanine Aminotransfer ALT/SGPT 116 U/L (16-61); Albumin, Serum 3.4 g/dL (3.2-5.0); Alkaline Phosphatase 470 U/L (45-117); Anion Gap 13 (5-15); BUN 21 mg/dL (7-18); BUN/Creat Ratio 24.8 RATIO (10-20); Chloride 110 mmol/L (98-107); Creatinine, Serum 0.85 mg/dL (0.70-1.30); EST Glomerular Filtration Rate 97 mL/min (>60); Est Glom Filt Rate - Afr Amer 117 mL/min (>60); Estimated Creatinine Clearance 84.94 ml/min; Globulin 4.4 g/dL (2.2-4.2); Glucose 106 mg/dL (74-106); Potassium 4.1 mmol/L (3.5-5.1); Protein, Total 7.8 g/dL (6.4-8.2); Sodium Level 145 mmol/L (136-145)
--- NOTE | 2022-08-28 08:17 | DCINST_ITS ---
Discharge Instructions Diet Discharge Diet: No restrictions Activity Discharge Activity: Return to Normal Activity Follow Up Care Test Results: Test results from this visit will be discussed in further detail at your follow- up appointment, if applicable. Discharge Plan Admission Admit Date/Time: 08/23/22 13:30 Primary Reason for Your Visit: Abdominal pain Attending Provider: Gail Vela Primary Care Provider: Alex Ji Consulting Providers: Papi Goldstein ; Marie Jackson Instructions Patient Instructions: Abdominal Pain Additional Instructions / Restrictions: *Please take this with you to your next doctors appointment* - We will need a CMP (lab work) upon discharge to monitor liver function, please call your primary care physician to obtain order upon discharge -Please follow-up with gastroenterology, the stomach doctors, upon discharge. If your previously established you can continue following with that provider. If you are not actively following with a provider and would like to follow with Dr. Novak please call [phone] upon discharge to schedule hospital follow- up -He would benefit from taking MiraLAX upon discharge, you can obtain this over the counter and take as directed -It was recommended by the pneumatic tester mechanic, Dr. Novak, who saw you in the hospital to take gabapentin 300 mg 3 times a day and Protonix 40 mg twice daily. You indicated however her that you have previously taking gabapentin and did not find it beneficial. This was originally sent to pharmacy per recommendations, but her request has been made to cancel the prescription. -Protonix will be sent to [facility] retail pharmacy -It was indicated that you are taking acetaminophen PM as needed, would recommend avoiding diphenhydramine (Benadryl) if possible given that it can cause constipation and in a subset of people can contribute to abdominal pain -You were started on amlodipine due to persistently high blood pressure, a prescription for this will be sent to [facility] retail pharmacy -Please call your primary care provider's office upon discharge to schedule a hospital follow up within 1 week. -For any concerning signs or symptoms please call 911 or proceed to the nearest emergency department Discharge Orders/Prescriptions Prescriptions: New amlodipine 5 mg Tablet 5 mg PO DAILY 30 Days Qty: 30 0RF pantoprazole [Protonix] 40 mg tablet,delayed release (DR/EC) 40 mg PO BID 30 Days Qty: 60 0RF Continued tizanidine 4 mg capsule 4 mg PO Q8H PRN (Reason: Spasms) cyclobenzaprine 10 mg Tablet 10 mg PO TID escitalopram oxalate 10 mg Tablet 10 mg PO DAILY magnesium 200 mg Tablet 200 - 400 mg PO DAILY multivitamin Tablet 1 tab PO DAILY acetaminophen 500 mg Tablet 1,000 mg PO BID PRN (Reason: Pain) L-Arginine(alpha-ketoglutarat) 350 mg Tablet Extended Release 350 - 700 mg PO DAILY Discontinued diphenhydramine-acetaminophen [Acetaminophen PM] 25-500 mg Tablet 2 tab PO QHS PRN (Reason: Pain) Referrals / Follow Up: Alex Ji MD [Primary Care Provider] - Disposition Disposition (needs filled in before D/C Order can be placed): Home, Self Care
[2022-08-28 08:20] VITALS: BP 134/109
[2022-08-28] MEDS: Potassium Chloride Oral Tablet 20 MEQ 40 MEQ PO (08:23)
[2022-08-28] MEDS: Docusate Sodium 100 MG/10 ML UDC 200 MG PO (08:23)
[2022-08-28] MEDS: Polyethylene Glycol 3350 17 GM PACKET PO (08:23)
[2022-08-28] MEDS: Enoxaparin 40 MG/0.4 ML Syringe SC (08:23)
[2022-08-28] MEDS: Escitalopram Oxalate 10 MG Tablet PO (08:23)
[2022-08-28] MEDS: amLODIPine 5 MG Tablet PO (08:24)
[2022-08-28 09:45] VITALS: BP 152/96; PULSE 94; RESP 16; TEMP 36.4; O2SAT 97
--- NOTE | 2022-08-28 12:00 | CASEMGMT ---
This RN CM to room to discuss d/c plan and pt states no concerns or need for resources with going home at time of discharge. Pt voices no further questions/concerns/needs. SStaten RN CM
--- NOTE | 2022-08-28 17:36 | DS.PCM_ITS ---
Providers Date of Admission: 08/23/22 Date of Discharge: 08/28/22 Primary Care Physician: Dr. Alex Ji MD Consultations 08/22/22 17:30 Consult: Gastroenterology Routine Consulting Provider: [facility] Reason for Consult: ERCP EMERGENT Consult: No MD Notified: Yes Date Notified: 08/22/22 Time Notified: 16:57 Method of Notification: ED Physician Initiated Reason For Visit: abdominal pain Diagnosis Discharge Diagnosis (1) Acute pancreatitis after endoscopic retrograde cholangiopancreatography (ERCP): Status: Acute Code(s): K91.89 - Other postprocedural complications and disorders of digestive system; K85.90 - Acute pancreatitis without necrosis or infection, unspecified (2) Hypertensive urgency: Status: Acute Code(s): I16.0 - Hypertensive urgency Plan 62-year-old male with past medical history of biliary duct strictures status post ERCP with sphincterotomy, common bile dilatation and 1 stent placed into the common bile duct on 08/20/22. Patient presented on 08/22/2022 with severe abdominal pain. CT of the abdomen pelvis had shown acute pancreatitis and pancreatic stent displacement. 1. Acute intractable abdominal pain secondary to displacement of pancreatic stent/acute pancreatitis 2. Acute pancreatitis status post ERCP 3. Hypertensive urgency 4.Hypokalemia 5. LFTs likely secondary to recent ERCP 6. Leukocytosis 7. Constipation Medications at Discharge Home Medications tizanidine 4 mg capsule 4 mg PO Q8H PRN Spasms 03/07/22 cyclobenzaprine 10 mg tablet 10 mg PO TID muscle spasms 08/14/22 escitalopram oxalate 10 mg tablet 10 mg PO DAILY depression 08/14/22 magnesium 200 mg tablet 200 - 400 mg PO DAILY supplement 08/14/22 acetaminophen 500 mg tablet 1,000 mg PO BID PRN Pain 08/22/22 arginine oxoglurate 350 mg tablet,extended release (L-Arginine (alpha- ketoglutarate)) 350 - 700 mg PO DAILY SUPPLEMENT 08/22/22 multivitamin 1 tab PO DAILY health maintenance 08/22/22 amlodipine 5 mg tablet 5 mg PO DAILY 30 days #30 tabs 08/28/22 pantoprazole 40 mg tablet,delayed release (Protonix) 40 mg PO BID 30 days #60 tabs 08/28/22 Hospital Course Procedures - (ERCP) Summary of Care Provided Minutes Spent on Discharge: 31 Hospital Course: Mr. Carter is a 62-year-old gentleman with a history of bile duct strictures who presented 08/22/2022 after having an ERCP on the and not feeling better after he went home. He presented to the ED with worsening abdominal pain, primarily right upper quadrant. CT scan showed mild acute focal pancreatitis with acute duodenitis. GI consulted. ERCP performed 08/27/2022 and a single localized biliary stricture was found in the lower third of the main bile duct and was deemed to be postsurgical. Biliary sphincterotomy was performed and biliary tree was swept and sludge was found and 2 stents were removed and one stent was exchanged in the pancreatic duct. Recommendations were for Protonix 40 mg twice daily and gabapentin 300 mg 3 times a day. Patient improved significantly after procedure. Did discuss gabapentin and Protonix, patient reports he did not want the gabapentin as it made him have mental health issues in the past but was willing to check Protonix. On the day of discharge was feeling much better with a little bit of residual pain, eating better, passing gas. No chest pain or shortness of breath. Patient like to go home. Advised to call PCP upon discharge and recommend a follow-up CMP to verify liver function improving. Will need follow-up with gastroenterology, does have a provider but contact information for Dr. Novak provided as well if needed. Advised to take MiraLAX, Protonix. Tylenol as needed. Additionally was started on amlodipine due to elevated blood pressure and this will be continued on discharge. Physical Exam Const alert and no apparent distress Constitutional Narrative: Oriented HEENT normocephalic and head/scalp atraumatic Eyes Eyes Narrative: EOM grossly intact, anicteric Neck supple Resp normal respiratory effort and clear to auscultation bilaterally Cardio regular rate and regular rhythm GI GI Narrative: Soft to palpation, tenderness improved with only mild residual, no rebound guarding or rigidity Extremity Extremity Narrative: No edema appreciated Neuro moves all extremities Neuro Narrative: No overt focal deficits appreciated Psych Psych Narrative: Cooperative Weight / BMI Weight Weight: 82.5 kg Body Mass Index (BMI) 27.6 ABG / Lab / Microbiology Data Result Diagrams: 08/28/22 05:31 08/28/22 05:31 Laboratory: Laboratory Results - last 24 hr 08/28/22 05:31: WBC 12.1 H, RBC 4.97, Hgb 15.3, Hct 45.0, MCV 90.5, MCH 30.8, MCHC 34.0, RDW Std Deviation 41.1, RDW Coeff of Linsey 12.2, Plt Count 413, MPV 8.7, Immature Gran % (Auto) 1.200 H, Neut % (Auto) 76.8 H, Lymph % (Auto) 14.7 L , Arthur % (Auto) 6.9, Eos % (Auto) 0.1, Baso % (Auto) 0.3, Absolute Neuts (auto) 9.3 H, Absolute Lymphs (auto) 1.77, Nucleated RBC % 0 08/28/22 05:31: Sodium 145, Potassium 4.1, Chloride 110 H, Carbon Dioxide 22.0, Anion Gap 13, BUN 21 H, Creatinine 0.85, Estim Creat Clear Calc 84.94, Est GFR (MDRD) Af Amer 117, Est GFR (MDRD) Non-Af 97, BUN/Creatinine Ratio 24.8 H, Glucose 106, Calcium 9.0, Total Bilirubin 0.50, AST 37, ALT 116 H, Alkaline Phosphatase 470 H, Total Protein 7.8, Albumin 3.4, Globulin 4.4 H, Albumin/Globulin Ratio 0.8 L Microbiology: Microbiology 08/23/22 20:30 Blood Culture (Wb) - Right Hand Blood Culture - Preliminary No growth in 48 hours. 08/23/22 20:25 Blood Culture (Wb) - Anticubital Right Blood Culture - Pr eliminary No growth in 48 hours. D/C Instructions Discharge Diet: No restrictions Meaningful Use Info Meaningful Use Diagnoses (Choose all that apply): None applicable Discharge Plan Admission Admit Date/Time: 08/23/22 13:30 Primary Reason for Your Visit: Abdominal pain Attending Provider: Gail Vela Primary Care Provider: Alex Ji Consulting Providers: Papi Goldstein ; Marie Jackson Instructions Patient Instructions: Abdominal Pain Additional Instructions / Restrictions: *Please take this with you to your next doctors appointment* - We will need a CMP (lab work) upon discharge to monitor liver function, please call your primary care physician to obtain order upon discharge -Please follow-up with gastroenterology, the stomach doctors, upon discharge. If your previously established you can continue following with that provider. If you are not actively following with a provider and would like to follow with Dr. Friend please call [phone] upon discharge to schedule hospital follow- up -He would benefit from taking MiraLAX upon discharge, you can obtain this over the counter and take as directed -It was recommended by the personal lines account manager, Dr. Novak, who saw you in the hospital to take gabapentin 300 mg 3 times a day and Protonix 40 mg twice daily. You indicated however her that you have previously taking gabapentin and did not find it beneficial. This was originally sent to pharmacy per kendy gaffney, but her request has been made to cancel the prescription. -Protonix will be sent to [facility] retail pharmacy -It was indicated that you are taking acetaminophen PM as needed, would recommend avoiding diphenhydramine (Benadryl) if possible given that it can cause constipation and in a subset of people can contribute to abdominal pain -You were started on amlodipine due to persistently high blood pressure, a prescription for this will be sent to [facility] retail pharmacy -Please call your primary care provider's office upon discharge to schedule a [facility] follow up within 1 week. -For any concerning signs or symptoms please call 911 or proceed to the nearest emergency department Discharge Orders/Prescriptions Prescriptions: New amlodipine 5 mg Tablet 5 mg PO DAILY 30 Days Qty: 30 0RF pantoprazole [Protonix] 40 mg tablet,delayed release (DR/EC) 40 mg PO BID 30 Days Qty: 60 0RF Continued tizanidine 4 mg capsule 4 mg PO Q8H PRN (Reason: Spasms) cyclobenzaprine 10 mg Tablet 10 mg PO TID escitalopram oxalate 10 mg Tablet 10 mg PO DAILY magnesium 200 mg Tablet 200 - 400 mg PO DAILY multivitamin Tablet 1 tab PO DAILY acetaminophen 500 mg Tablet 1,000 mg PO BID PRN (Reason: Pain) L-Arginine(alpha-ketoglutarat) 350 mg Tablet Extended Release 350 - 700 mg PO DAILY Discontinued diphenhydramine-acetaminophen [Acetaminophen PM] 25-500 mg Tablet 2 tab PO QHS PRN (Reason: Pain) Referrals / Follow Up: Andi Sutton PA [Non-Staff] - 09/04/22 2:40 pm Disposition Disposition (needs filled in before D/C Order can be placed): Home, Self Care Charges/Coding Visit Charges Inpatient E&M: 50255 Disch Hosp
== END 2022-08-28 12:38 | disposition home or self-care (01) | DRG 438 ==
LOC: ED 16:42 → PCU 17:14
PROVIDERS: Internal Medicine; Internal Medicine Gastroenterology; Emergency Provider Emergency Medicine; PCP Family Medicine; Visit Provider Internal Medicine
PROC: 0FCD8ZZ Extirpation of Matter from Pancreatic Duct, Via Natural or Artificial Opening Endoscopic (ICD-10-PCS; CPT 43260; principal; 2022-08-27 14:55)
DX: K85.90 Acute pancreatitis without necrosis or infection, unspecified (principal); K83.1 Obstruction of bile duct; K56.0 Paralytic ileus; K91.89 Other postprocedural complications and disorders of digestive system; I16.0 Hypertensive urgency; K29.80 Duodenitis without bleeding; K31.84 Gastroparesis; E87.6 Hypokalemia; F41.9 Anxiety disorder, unspecified; D72.829 Elevated white blood cell count, unspecified; K59.00 Constipation, unspecified; Z80.0 Family history of malignant neoplasm of digestive organs
CPT/HCPCS: 36415; 71045; 74019; 74177; 74328; 74330; 76000; 80048; 80053; 80076; 81001; 83690; 85025; 87040; 93005; 97802; 99285; J7030; J7120; Q9967; A4216; J1940; J2405; J3490

== ENCOUNTER 2022-09-12 10:23 | Inpatient (IN) | payer MEDICARE, MEDICAID, SELFPAY ==
[2022-09-12 10:24] VITALS: BP 131/85; PULSE 75; RESP 16; TEMP 35.8; O2SAT 100; BMI 28.1
--- NOTE | 2022-09-12 10:35 | CT_ITS ---
STUDY: CT ABDOMEN AND PELVIS WITH CONTRAST REASON FOR EXAM: Male, 62 years old. Upper abd pain -- pancreatic stent. History of pancreatitis. RADIATION DOSAGE (If Supplied By Facility): CTDIvol = ( 14.95 ) mGy, DLP = ( 688.75 ) mGycm TECHNIQUE: Transaxial images were obtained from the dome of the diaphragm to the symphysis pubis without oral contrast. IV 100mL Isovue-300 was administered. Sagittal and coronal images were reconstructed. Individualized dose optimization techniques were used for this CT. COMPARISON: None. FINDINGS: The visualized lung bases are unremarkable. The visualized portions of the heart are within normal limits. Mild hepatomegaly. Fatty infiltration of the liver. Prior cholecystectomy. Normal spleen. Diffuse enlargement of the head of the pancreas with peripancreatic inflammatory changes. This as progressed as compared to prior study. Several tiny cystic changes are seen within the head of the pancreas. A common bile duct biliary stent is seen at this time. Normal bilateral adrenal glands. Normal right kidney. Normal left kidney. Normal visualized stomach. Normal small intestine. There are multiple colonic diverticula consistent with diverticulosis. The appendix is visualized and appears normal. There is scattered atherosclerotic calcification of the abdominal aorta, without a demonstrated aneurysm. Normal inferior vena cava. Normal retroperitoneum. Normal urinary bladder. Normal abdominal wall. There are degenerative changes of the visualized lumbar spine. CT/Abdomen/Pelvis W IV Cont ONLY IMPRESSION: Mild hepatomegaly and fatty infiltration of the liver. Status post cholecystectomy. Progressive increase in size of the head of the pancreas with progressive increased peripancreatic inflammatory changes suggestive of progressive acute pancreatitis. Electronically Signed: Son Chapman MD at 11:40 EDT ,
--- NOTE | 2022-09-12 10:37 | EDS_ITS ---
HPI History of Present Illness Chief Complaint: Abd Pain Informant: patient Onset/Context/Timing Onset: Weeks (1 week) Context: Gradual Onset Narrative Narrative: Patient presents with epigastric and upper quadrant pain for the past 1 week. He recently had an ERCP and stent placement. He was readmitted after stent migration causing increased pain and pancreatitis. He states he felt well upon discharge from the hospital on the . 1 week ago he started pancreatic enzymes. He states since then he has had increased abdominal pain and bloating. He stopped the pancreatic enzymes 2 days ago but the pain continues. He points to the epigastric area and states it wraps around his right upper quadrant and into his right back. He denies fever or chills. He states pain does not seem to change with food. [facility] Medical History Acute pancreatitis after endoscopic retrograde cholangiopancreatography (ERCP) Alcohol use Anxiety Constipation Depression Duodenitis Heartburn History of diverticulitis History of stress test Marijuana use Non-smoker Wears glasses Home Medications tizanidine 4 mg capsule 4 mg PO Q8H PRN Spasms 03/07/22 [History Last Taken 08/21/22] cyclobenzaprine 10 mg tablet 10 mg PO TID muscle spasms 08/14/22 [History Last Taken 08/21/22] escitalopram oxalate 10 mg tablet 10 mg PO DAILY depression 08/14/22 [History Last Taken 2 Days Ago ~08/20/22] magnesium 200 mg tablet 200 - 400 mg PO DAILY supplement 08/14/22 [History Last Taken 08/19/22] acetaminophen 500 mg tablet 1,000 mg PO BID PRN Pain 08/22/22 [History Last Taken 08/21/22] arginine oxoglurate 350 mg tablet,extended release (L-Arginine (alpha- ketoglutarate)) 350 - 700 mg PO DAILY SUPPLEMENT 08/22/22 [History Last Taken 08/17/22] multivitamin 1 tab PO DAILY health maintenance 08/22/22 [History Last Taken 06/01] amlodipine 5 mg tablet 5 mg PO DAILY 30 days #30 tabs 08/28/22 [Rx Last Taken Unknown] pantoprazole 40 mg tablet,delayed release (Protonix) 40 mg PO BID 30 days #60 tabs 08/28/22 [Rx Last Taken Unknown] ywnevi-wfhvaawo-iolaxug 24,000-76,000-120,000 unit capsule,delayed rel (Creon) 1 cap PO TID #90 caps 09/03/22 [Rx Last Taken Unknown] Allergy/AdvReac Type Severity Reaction Status Date / Time amoxicillin Allergy Intermediate UNK Verified 09/12/22 10:23 gabapentin AdvReac Other Verified 09/12/22 10:24 Family History Mother Colon cancer Cancer Ovarian Hypertension Father Cancer Gastric Hypertension Surgical History Hx of cholecystectomy S/P ERCP Social History Smoking Status: Never smoker alcohol intake: never substance use type: other details: Medical Marijuana ROS ROS ED Constitutional Constitutional ED: Denies chills or fever(s) Eyes Eyes: Denies change in vision or discharge from eye(s) ENT ENT ED: Denies discharge from eye(s), rhinorrhea or sore throat Cardiovascular Cardiovascular: Denies chest pain or palpitations Respiratory/Chest Respiratory/Chest: Denies cough or dyspnea Gastrointestinal Gastrointestinal: Reports abdominal pain and nausea; Denies diarrhea or vomiting Genitourinary Genitourinary ED: Denies dysuria Musculoskeletal Musculoskeletal: Denies back pain or extremity pain Integumentary Denies Abrasions or rash Neurologic Neurologic: Denies headache(s) or weakness Psychiatric Psychiatric: Denies anxiety or depression Allergic/Immunologic Allergic/Immunologic ED: Denies lip swelling or urticaria EXAM Physical Exam Const Vital Signs: 09/12/22 10:24 09/12/22 12:24 Temperature 96.4 F L Temperature Source Temporal Pulse Rate 75 70 Respiratory Rate 16 16 Blood Pressure 131/85 H Blood Pressure Mean 100 Pulse Ox 100 100 Oxygen Delivery Method Room Air Room Air Positive well nourished and well developed General Appearance ED: well developed HEENT Reports normocephalic and head/scalp atraumatic Eyes PERRL and EOMs intact bilaterally Neck supple Chest Wall inspection of chest normal and palpation of chest normal Resp normal respiratory effort and clear to auscultation bilaterally Cardio regular rate and regular rhythm GI GI Narrative: Mild epigastric tenderness palpation. No guarding or rebound. Hypoactive bowel sounds are noted throughout. Palpation: soft Extremity normal to inspection Neuro oriented x3 and no sensory deficits noted Sensorium / Orientation: alert Motor Exam: strength 5/5 throughout Psych mental status grossly normal Skin no rashes or lesions noted MDM MDM MDM Narrative Medical decision making narrative: Patient was given Dilaudid and Zofran along with IV fluids. Lab work obtained along with CT scan with IV contrast. Lab Data Attestation: I reviewed the patient's lab results. Labs: Laboratory Results - last 24 hr 09/12/22 09/12/22 10:40 10:40 WBC 12.1 H RBC 4.71 Hgb 15.0 Hct 41.6 MCV 88.3 MCH 31.8 MCHC 36.1 H RDW Std Deviation 38.2 RDW Coeff of Linsey 11.9 Plt Count 363 MPV 8.3 Immature Gran % (Auto) 0.300 Neut % (Auto) 71.3 H Lymph % (Auto) 18.2 L Ramsey % (Auto) 7.8 Eos % (Auto) 1.8 Baso % (Auto) 0.6 Absolute Neuts (auto) 8.6 H Absolute Lymphs (auto) 2.20 Nucleated RBC % 0 Sodium 136 Potassium 3.9 Chloride 104 Carbon Dioxide 24.0 Anion Gap 8 BUN 14 Creatinine 1.03 Estim Creat Clear Calc 70.10 Est GFR (MDRD) Af Amer 93 Est GFR (MDRD) Non-Af 77 BUN/Creatinine Ratio 13.6 Glucose 139 H Calcium 9.0 Total Bilirubin 0.80 Direct Bilirubin 0.23 AST 34 ALT 90 H Alkaline Phosphatase 314 H Total Protein 8.0 Albumin 3.4 Globulin 4.6 H Lipase 100 Radiography Diagnostic Testing: Clinical Impression(s) from Imaging Studies Abdomen/Pelvis CT 09/12/22 10:35 IMPRESSION: Mild hepatomegaly and fatty infiltration of the liver. Status post cholecystectomy. Progressive increase in size of the head of the pancreas with progressive increased peripancreatic inflammatory changes suggestive of progressive acute pancreatitis. Electronically Signed: Son Chapman MD at 11:40 EDT , Treatment and Re-Evaluation Narrative: CBC was a white count 12.1 with 71% neutrophils. This appears consistent with his baseline. On last admission his white count was up into the 20s. Chemistry studies are largely unremarkable. Alk phos is 314 and ALT is 90. These are both improving when compared to prior values. His lipase is normal at 100. CT scan of the abdomen and pelvis reveals increased peripancreatic inflammation consistent with pancreatitis. I spoke with Dr. Novak. He reviewed the patient's CT images. He states it appears the stent is still in good position, however it is migrating slightly secondary to the pancreatic inflammation. With the patient having imaging evidence of pancreatitis he does recommend observation in the hospital with n.p.o. status to see if we can control the inflammation and therefore the patient's pain. I will speak with the hospit alist. Discharge Plan Triage Chief Complaint: Abd Pain ED Provider: Debra Landrum Dx/Rx/DC Orders Clinical Impression: Pancreatitis Prescriptions: No Action tizanidine 4 mg capsule 4 mg PO Q8H PRN (Reason: Spasms) Creon 24,000-76,000 -120,000 unit capsule,delayed release(DR/EC) 1 cap PO TID Qty: 90 0RF Rx Instructions: administer with meals and/or snacks cyclobenzaprine 10 mg Tablet 10 mg PO TID escitalopram oxalate 10 mg Tablet 10 mg PO DAILY magnesium 200 mg Tablet 200 - 400 mg PO DAILY multivitamin Tablet 1 tab PO DAILY acetaminophen 500 mg Tablet 1,000 mg PO BID PRN (Reason: Pain) L-Arginine(alpha-ketoglutarat) 350 mg Tablet Extended Release 350 - 700 mg PO DAILY amlodipine 5 mg Tablet 5 mg PO DAILY 30 Days Qty: 30 0RF pantoprazole [Protonix] 40 mg tablet,delayed release (DR/EC) 40 mg PO BID 30 Days Qty: 60 0RF Primary Care Provider: Alex Ji Referrals: Alex Ji MD [Primary Care Provider] - Disposition Disposition: Acute Care Hospital [facility]
[2022-09-12] MEDS: Ondansetron 4 MG/2 ML Vial IV (10:46)
[2022-09-12] MEDS: 0.9% Normal Saline 1,000 ML 150 ML IV (10:46)
[2022-09-12] MEDS: HYDROmorphone 1 MG/ML Syringe 0.5 MG IV (10:46)
[2022-09-12 10:48] LABS: Absolute Neutrophil Count 8.6 X10^3/uL (2.0-7.7); Basophil# 0.07 X10^3/uL; Basophil% 0.6 % (0-1); Eosinophil# 0.22 X10^3/uL; Eosinophils% 1.8 % (0-5); Hematocrit 41.6 % (40-54); Lymphocyte % 18.2 % (19-41); Mean Corp Hgb Conc 36.1 g/dL (32-36); Mean Corpuscular Hgb 31.8 pg (27.0-32.0); Mean Corpuscular Volume 88.3 fL (80-94); Mean Platelet Vol. 8.3 fl (6.2-12.0); Monocyte# 0.94 X10^3/uL; Monocyte% 7.8 % (0-10); NRBC Flagged by Analyzer 0 % (0-5); Neutrophil # 8.59 X10^3/uL (2.7-7.7); Neutrophil % 71.3 % (47-70); Platelet Count 363 K/mm3 (150-450); RBC Distribution Width CV 11.9 % (11.6-14.6); RBC Distribution Width SD 38.2 fl (35.1-43.9); Red Blood Count 4.71 M/mm3 (4.6-6.2); White Blood Count 12.1 K/mm3 (4.4-11.0)
[2022-09-12 11:04] LABS: AST(SGOT) 34 U/L (15-37); Alanine Aminotransfer ALT/SGPT 90 U/L (16-61); Albumin, Serum 3.4 g/dL (3.2-5.0); Alkaline Phosphatase 314 U/L (45-117); Anion Gap 8 (5-15); BUN 14 mg/dL (7-18); BUN/Creat Ratio 13.6 RATIO (10-20); Bilirubin, Direct 0.23 mg/dL (0.00-0.30); Chloride 104 mmol/L (98-107); Creatinine, Serum 1.03 mg/dL (0.70-1.30); EST Glomerular Filtration Rate 77 mL/min (>60); Est Glom Filt Rate - Afr Amer 93 mL/min (>60); Globulin 4.6 g/dL (2.2-4.2); Glucose 139 mg/dL (74-106); Lipase 100 U/L (73-393); Potassium 3.9 mmol/L (3.5-5.1); Sodium Level 136 mmol/L (136-145)
[2022-09-12] MEDS: HYDROmorphone 0.5 MG/0.5 ML SYRINGE IV (12:21)
[2022-09-12 12:24] VITALS: PULSE 70; RESP 16; O2SAT 100
--- NOTE | 2022-09-12 13:03 | MRI_ITS ---
STUDY: MR MRCP WITHOUT CONTRAST REASON FOR EXAM: Male, 62 years old. pancreatitis and elevated phosphatase TECHNIQUE: Standard MRCP technique was utilized. 3-D postprocessing images were reviewed. COMPARISON: None. FINDINGS: Gall Bladder: Surgically absent. Cystic duct: Surgically absent. Intrahepatic ducts: Normal visualized intrahepatic ducts with no demonstrated fixed filling defect, dilation or stricture. Common hepatic duct: Mildly dilated with no fixed filling defect or stricture. Common bile duct: Normal with no demonstrated fixed filling defect, dilation or stricture. Pancreatic duct: Normal with no demonstrated fixed filling defect, dilation or stricture. Inflammatory changes surrounding the pancreatic head. MRI/MRCP Abdomen without Contrast IMPRESSION: Mild dilatation of the common hepatic duct is most likely secondary to reservoir effect status post cholecystectomy. Acute focal pancreatitis. Electronically Signed: Ghassan Jaimes MD at 17:03 EDT ,
--- NOTE | 2022-09-12 13:29 | HP.PCM.HOS_ITS ---
[facility] - General General Date of Admission: 09/12/22 Date of Service: 09/12/22 Chief Complaint: Abdominal pain radiating to the back started on the weekend for 5 days progressively worsening. Mild nausea. HPI Narrative DARLIN EDWARDS, is a 62 M with history of biliary pancreatitis after open solitario for acute cholecystitis September 11, 2018, currently being followed by Dr. Novak last office visit on 09/03/2022 came to ED for abdominal pain mainly in epigastric region started on weekend. Abdominal pain started mainly in epigastric region on past Saturday felt like twitches or pressure and then got worse on Saturday with radiation to right upper back. For last 2 days, pain continued to get worse, more prolonged acid with nausea and biliary regurgitation. Patient denies hematemesis melena or hematochezia. No change in bowel movement. No fever last 1 week. He said this all started after he had open cholecystectomy and was found to have gallbladder remnant with adhesions which required laparoscopic cholecystectomy in December 2018 at [facility] by Dr. Harrell. Patient had recent 2 prior admissions, last discharge 08/28/2022. He had 2 recent ERCP on 08/20 and 08/28. On 08/20, single segment of biliary stricture found in lower third of main bile duct and upper third of bile duct was dilated with no obstruction. Patient had 1 stent placed in CBD and 1 temporary stent placed in the ventral pancreatic duct. On 08/27, repeat ERCP showed similar picture at that time 2 stents were removed from biliary tree and pancreatic duct and 1 stent was exchanged and pancreatic duct. After that patient followed PCP and pain management doctor and then Dr. Novak on 09/03 and he stopped taking pancreatic enzyme supplement on past Saturday. He started back on pancreatic enzyme on past Saturday feeling some abdominal pressure. ED physician consulted Dr. Novak and he ordered MRCP patient is further admitted. [facility], [facility] Medical History Acute pancreatitis after endoscopic retrograde cholangiopancreatography (ERCP) Alcohol use Anxiety Constipation Depression Duodenitis Heartburn History of diverticulitis History of stress test Marijuana use Non-smoker Wears glasses Home Medications tizanidine 4 mg capsule 4 mg PO Q8H PRN Spasms 03/07/22 [History Last Taken 08/21/22] cyclobenzaprine 10 mg tablet 10 mg PO TID muscle spasms 08/14/22 [History Last Taken 08/21/22] escitalopram oxalate 10 mg tablet 10 mg PO DAILY depression 08/14/22 [History Last Taken 2 Days Ago ~08/20/22] magnesium 200 mg tablet 200 - 400 mg PO DAILY supplement 08/14/22 [History Last Taken 08/19/22] arginine oxoglurate 350 mg tablet,extended release (L-Arginine (alpha- ketoglutarate)) 350 - 700 mg PO DAILY SUPPLEMENT 08/22/22 [History Last Taken 08/17/22] multivitamin 1 tab PO DAILY health maintenance 08/22/22 [History Last Taken 08/17/22] hirwbj-ylmkebqj-yicmlrt 24,000-76,000-120,000 unit capsule,delayed rel (Creon) 1 cap PO TID #90 caps 09/03/22 [Rx Last Taken Unknown] amlodipine 5 mg tablet 5 mg PO DAILY BLOOD PRESSURE 09/12/22 [History Last Taken 09/11/22] diphenhydramine 25 mg-acetaminophen 500 mg tablet (Tylenol PM Extra Strength) 2 tab PO QHS PRN Pain 09/12/22 [History Last Taken 09/11/22] melatonin 12 mg tablet 12 mg PO QHS PRN Sleep 09/12/22 [History Last Taken 09/11/22] pantoprazole 40 mg tablet,delayed release (Protonix) 40 mg PO BID GERD 09/12/22 [History Last Taken 09/11/22] polyethylene glycol 3350 17 gram/dose oral powder (Miralax) 17 g PO DAILY PRN Constipation 09/12/22 [History Last Taken 09/11/22] Allergy/AdvReac Type Severity Reaction Status Date / Time amoxicillin Allergy Intermediate UNK Verified 09/12/22 10:23 gabapentin AdvReac Other Verified 09/12/22 10:24 Family History Mother Colon cancer Cancer Ovarian Hypertension Father Cancer Gastric Hypertension Surgical History Hx of cholecystectomy S/P ERCP Social History Smoking Status: Never smoker alcohol intake: never substance use type: other details: Medical Marijuana ROS ROS Narrative Constitutional: Reports fatigue and weakness. No fever. Loss of appetite. HEENT: Reports systems reviewed and no addt'l complaints, except as documented Respiratory/Chest: Denies chest pain, shortness of breath at rest or with exertion Gastrointestinal: Denies coffee ground emesis, hematemesis or vomiting. Rest as mentioned in HPI Genitourinary: Denies burning urination or new urinary tract symptoms Musculoskeletal: Denies joint pain and limited range of motion Neurologic: Denies seizure-like activity skin: No ulcer. No rash Endocrinology: Reports systems reviewed and no addt'l complaints, except as documented Hematologic/Lymphatic: Reports systems reviewed and no addt'l complaints, except as documented Rest 14 ROS are negative except as mentioned in HPI Vital Signs Vital Signs Vital Signs: 09/12/22 10:24 09/12/22 12:24 Temperature 96.4 F L Temperature Source Temporal Pulse Rate 75 70 Respiratory Rate 16 16 Blood Pressure 131/85 H Blood Pressure Mean 100 Pulse Ox 100 100 Oxygen Delivery Method Room Air Room Air Weight Weight: 185 lb Body Mass Index (BMI) 28.1 Physical Exam Narrative General: Alert, Oriented x3, Cooperative HEENT: Atraumatic, PERRLA, EOMI, Normocephalic Oral: Oral mucosa dry. No Gingival or Mucosal Lesions/ Ulcerations Neck: Supple, No JVD, Negative Carotid Bruits Lungs: Air entry diminished in bilateral lung bases. No crepitation/rhonchi Cardiovascular: Regular rate, Regular Rhythm, Normal S1, Normal S2, No murmurs Abdomen: Tenderness present over epigastric and right upper quadrant region. Tenderness also on right upper back. No guarding/rigidity. Bowel sounds sluggish. Mild gaseous distention. No palpable mass. : No renal angle tenderness. No suprapubic tenderness. Extremities: No edema, Capillary Refill Less than 3 Seconds Skin: No rashes, No breakdown Musculoskeletal: No Tenderness to Palpation of Joints or Extremities Neurological: Cranial nerves II-XII grossly intact, DTR 2+/4 and Symmetrical, N euro grossly intact Psych/Mental Status: Normal Affect, Appropriate. Results Lab / Micro Data Result Diagrams: 09/12/22 10:40 09/12/22 10:40 Labs: Laboratory Results - last 24 hr 09/12/22 10:40: WBC 12.1 H, RBC 4.71, Hgb 15.0, Hct 41.6, MCV 88.3, MCH 31.8, MCHC 36.1 H, RDW Std Deviation 38.2, RDW Coeff of Linsey 11.9, Plt Count 363, MPV 8.3, Immature Gran % (Auto) 0.300, Neut % (Auto) 71.3 H, Lymph % (Auto) 18.2 L, [place] % (Auto) 7.8, Eos % (Auto) 1.8, Baso % (Auto) 0.6, Absolute Neuts (auto) 8.6 H, Absolute Lymphs (auto) 2.20, Nucleated RBC % 0 09/12/22 10:40: Sodium 136, Potassium 3.9, Chloride 104, Carbon Dioxide 24.0, Anion Gap 8, BUN 14, Creatinine 1.03, Estim Creat Clear Calc 70.10, Est GFR (MDRD) Af Amer 93, Est GFR (MDRD) Non-Af 77, BUN/Creatinine Ratio 13.6, Glucose 139 H, Calcium 9.0, Total Bilirubin 0.80, Direct Bilirubin 0.23, AST 34, ALT 90 H, Alkaline Phosphatase 314 H, Total Protein 8.0, Albumin 3.4, Globulin 4.6 H, Lipase 100 Radiology Impression Abdomen/Pelvis CT 09/12/22 10:35 IMPRESSION: Mild hepatomegaly and fatty infiltration of the liver. Status post cholecystectomy. Progressive increase in size of the head of the pancreas with progressive increased peripancreatic inflammatory changes suggestive of progressive acute pancreatitis. Electronically Signed: Son Chapman MD at 11:40 EDT , Assessment & Plan Assessment/Plan (1) Acute pancreatitis: PLAN: Plan 62-year-old male with past medical history of biliary duct strictures status post ERCP with sphincterotomy, common bile dilatation and 1 stent placed into the common bile duct on 08/20/22.? Patient presented again with 5 days of abdomi nal pain and biliary regurgitation but no vomiting today. 1. Acute abdominal pain due to acute biliary pancreatitis status post surgical biliary stricture and stent placement: Patient is being admitted on [facility] floor. Mild leukocytosis. Lipase 100. ALT 90, AST 34, and phosphorus 314. Total bili normal. GI is consulted. MRCP ordered. I do not think patient needs antibiotic. Will monitor. IV fluid Ringer lactate ordered. CT abdomen pelvis with contrast was done which shows diffuse enlargement of the head of pancreas with peripancreatic inflammatory changes, progressed since previous study. Several tiny cystic changes seen in head of pancreas. Pain control. As per CT abdomen and Dr. Novak impression, biliary stent has not migrated and may be surrounding inflammation causing pain. Patient is on muscle relaxant and pain medication. Continue pancreatic enzyme supplement. 2. Hypertension: Patient on amlodipine continued. Patient had hypertensive urgency during previous admission. Current blood pressure is 131/85. 3. History of cholecystectomy and surgical biliary stricture in 2018 on admission in [facility]. 4. Mild anxiety: Patient on escitalopram. VTE prophylaxis moderate risk: Lovenox 40 mg subcu daily. Living will/advanced directive/end of life care: Patient does not have living will or advanced directive. After discussion of benefits/risks procedures invo lved with full code, DNR CC arrest and DNR CC, the patient opted for full code. Patient does want artificial life support including intubation, tube feed, ventilator and/chest compression, central venous catheter, vasopressor and DC shock if needed Total time spent in [id number] encounter in discussion of advanced directive 16 minutes. Laboratory Results 09/12/22 10:40: WBC 12.1 H, RBC 4.71, Hgb 15.0, Hct 41.6, MCV 88.3, MCH 31.8, MCHC 36.1 H, RDW Std Deviation 38.2, RDW Coeff of Linsey 11.9, Plt Count 363, MPV 8.3, Immature Gran % (Auto) 0.300, Neut % (Auto) 71.3 H, Lymph % (Auto) 18.2 L, [place] % (Auto) 7.8, Eos % (Auto) 1.8, Baso % (Auto) 0.6, Absolute Neuts (auto) 8.6 H, Absolute Lymphs (auto) 2.20, Nucleated RBC % 0 09/12/22 10:40: Sodium 136, Potassium 3.9, Chloride 104, Carbon Dioxide 24.0, Anion Gap 8, BUN 14, Creatinine 1.03, Estim Creat Clear Calc 70.10, Est GFR (MDRD) Af Amer 93, Est GFR (MDRD) Non-Af 77, BUN/Creatinine Ratio 13.6, Glucose 139 H, Calcium 9.0, Total Bilirubin 0.80, Direct Bilirubin 0.23, AST 34, ALT 90 H, Alkaline Phosphatase 314 H, Total Protein 8.0, Albumin 3.4, Globulin 4.6 H, Lipase 100 09/12/22 10:40: Phosphorus Pending, Magnesium Pending, Ferritin Pending, C-React Prot Ext Range Pending Clinical Impression(s) from Imaging Studies Abdomen/Pelvis CT 09/12/22 10:35 IMPRESSION: Mild hepatomegaly and fatty infiltration of the liver. Status post cholecystectomy. Progressive increase in size of the head of the pancreas with progressive increased peripancreatic inflammatory changes suggestive of progressive acute pancreatitis. Charges/Coding Visit Charges Inpatient E&M: 46526 Init Hosp L3 Procedures Hospitalists Procedures: 46253 Advncd Care Plan 30 Min
[2022-09-12 13:39] VITALS: BP 111/72; PULSE 67; RESP 14; TEMP 36.4; O2SAT 100
[2022-09-12 13:41] VITALS: BP 111/72; PULSE 67; RESP 14; O2SAT 100
[2022-09-12 13:55] LABS: Ferritin 137 ng/mL (26-388); Magnesium 2.5 mg/dL (1.6-2.6); Phosphorus 3.3 mg/dL (2.5-4.9)
[2022-09-12 14:46] VITALS: BP 120/86; PULSE 67; RESP 18; TEMP 36.3; O2SAT 97; BMI 27.6
[2022-09-12 15:04] LABS: Erythrocyte Sedimentation Rate 61 mm/hr (0-20)
[2022-09-12] MEDS: 0.9% Saline Lock 10 ML Syringe IV (15:08)
[2022-09-12 15:31] LABS: Alcohol, Blood (Medical)-Serum < 3.0 mg/dL
[2022-09-12 15:38] LABS: Lactic Acid 0.8 mmol/L (0.4-1.9)
[2022-09-12] MEDS: Pantoprazole Sodium 40 MG Tablet PO ×2 (16:36→22:12)
[2022-09-12] MEDS: Enoxaparin 40 MG/0.4 ML Syringe SC (16:36)
[2022-09-12] MEDS: Creon 24,000 unit DR Capsule 1 CAP PO (16:37)
[2022-09-12 17:22] LABS: Amphetamine Urine VISTA NEGATIVE (<1000 ng/mL); Barbiturate Urine VISTA NEGATIVE (< 200 ng/mL); Benzodiazepine Urine VISTA POSITIVE (< 200 ng/mL); Cocaine Urine VISTA NEGATIVE (< 300 ng/mL); Ecstacy Urine VISTA NEGATIVE (< 500 ng/mL); Methadone Urine VISTA NEGATIVE (< 300 ng/mL); PCP Urine VISTA NEGATIVE (< 25 ng/mL); THC Urine VISTA POSITIVE (< 50 ng/mL); Vista UDS pH Range 5
[2022-09-12] MEDS: HYDROmorphone 1 MG/ML Syringe IV ×2 (18:25→22:19)
[2022-09-12] MEDS: Metoclopramide 10 MG/2 ML Vial 5 MG IV (18:25)
[2022-09-12] MEDS: 0.9% Normal Saline 1,000 ML 250 ML IV ×2 (18:25→22:12)
--- NOTE | 2022-09-12 18:26 | PCM.CONS.GEN ---
Assessment & Plan Assessment/Plan (1) Acute pancreatitis: PLAN: Acute recurrent pancreatitis. I do not think he has chronic pancreatitis. He does have some small cystic changes in the head of his pancreas that could be consistent with chronic pancreatitis. We will need an endoscopic ultrasound or CT with pancreatic protocol once this resolves in order to see if he has imaging consistent with chronic pancreatitis. He also smokes marijuana on a daily basis which I think could be contributing to pancreatitis and him as this is been going on for multiple years. I do not see anything else in his medication regiment that may be associated with acute pancreatitis. I am not sure why he has his current episode of pancreatitis. I will order an IgG4, PHYLICIA, gammaglobulins for autoimmune pancreatitis. Recommend 250 cc of normal saline per hour, clear liquid diet, PPI therapy and scheduled Reglan therapy. HPI Consult Data Date of Consult: 09/12/22 HPI Narrative HPI Narrative: DARLIN EDWARDS, is a 62 M who presented as an outpatient with ongoing abdominal pain and cramping issues. He originally underwent open cholecystectomy for acute cholecystitis 09.11.18. Gallbladder remnant seen on CT 12.12.18 and underwent laparoscopic cholecystectomy 01.07.19 at [facility] with Dr. Harrell who also found significant adhesions during surgery which were lysed. Follow up US was reported as negative 02.18.19. Abdominal MRI 04.28.19 without ductal dilation or choledocholithiasis; 9mm hemorrhagic cyst on left kidney. Dr. Mascorro seen and started on gabapentin 300mg TID. Gastroenterology seen .01.28 who did not suspected Sphincter of Oddi, started Pamelor, weaned gabapentin and consulted for psychiatric support. He attempted dicyclomine previously which caused constipation, bloating and emesis. Utilizes marijuana 3-4 times a day and Zanaflex as prescribed by his pain management doctor. Flexeril has been very helpful. ? He has seen 17 other doctors prior to coming seeing me for this chronic abdominal pain. 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 ERCP 08.20.22 noting single segmental biliary stricture of lower third main bile duct, benign appearing; upper third main bile duct dilated r/t obstruction; s/p cholecystectomy; biliary tree swept, sludge; biliary sphincterotomy performed; CBD dilated; stents placed in CBD and ventral pancreatic duct.? He came back to the hospital with abdominal pain and he was discovered to have pancreatitis. Images had shown a displaced pancreatic stent. He was treated conservatively with IV fluids and pain medicine. We ended up exchanging his pancreatic stent for a longer pancreatic stent and he was doing well and regarding his pain and the CT scan that showed that the pancreatitis was resolving as well as his liver enzymes, CRP, ESR were going down and his pancreatic enzymes were normal. He came back to the hospital today after this weekend started developing pain on Saturday. He states he felt well upon discharge from the hospital on the .? 1 week ago he started pancreatic enzymes.? He states since then he has had increased abdominal pain and bloating.? He stopped the pancreatic enzymes 2 days ago but the pain continues.? He points to the epigastric area and states it wraps around his right upper quadrant and into his right back.? He denies fever or chills.? He states pain does not seem to change with food. He did have shots of alcohol this weekend. Repeat imaging today does show worsening pancreatitis. His amylase and lipase are normal. I ordered an ESR and CRP and they are elevated. His alkaline phosphatase, AST and ALT are trending down. [facility] Medical History Acute pancreatitis after endoscopic retrograde cholangiopancreatography (ERCP) Alcohol use Anxiety Constipation Depression Duodenitis Heartburn History of diverticulitis History of stress test Marijuana use Non-smoker Wears glasses Home Medications tizanidine 4 mg capsule 4 mg PO Q8H PRN Spasms 03/07/22 [History Last Taken 09/11/22] cyclobenzaprine 10 mg tablet 10 mg PO Q8H PRN MUSCLE SPASMS 08/14/22 [History Last Taken 09/11/22] escitalopram oxalate 10 mg tablet 10 mg PO DAILY depression 08/14/22 [History Last Taken 09/11/22] magnesium 200 mg tablet 200 - 400 mg PO DAILY supplement 08/14/22 [History Last Taken 09/11/22] arginine oxoglurate 350 mg tablet,extended release (L-Arginine (alpha-ketoglutarate)) 350 - 700 mg PO DAILY SUPPLEMENT 08/22/22 [History Last Taken 2 Days Ago ~09/10/22] multivitamin 1 tab PO DAILY health maintenance 08/22/22 [History Last Taken 09/11/22] jlpipk-llknztmf-inhhbdz 24,000-76,000-120,000 unit capsule,delayed rel (Creon) 1 cap PO TID #90 caps 09/03/22 [Rx Last Taken 09/09/22] amlodipine 5 mg tablet 5 mg PO DAILY BLOOD PRESSURE 09/12/22 [History Last Taken 09/11/22] diphenhydramine 25 mg-acetaminophen 500 mg tablet (Tylenol PM Extra Strength) 2 tab PO QHS PRN Pain 09/12/22 [History Last Taken 09/11/22] melatonin 12 mg tablet 12 mg PO QHS PRN Sleep 09/12/22 [History Last Taken 09/11/22] pantoprazole 40 mg tablet,delayed release (Protonix) 40 mg PO BID GERD 09/12/22 [History Last Taken 09/11/22] polyethylene glycol 3350 17 gram/dose oral powder (Miralax) 17 g PO DAILY PRN Constipation 09/12/22 [History Last Taken 09/11/22] Allergy/AdvReac Type Severity Reaction Status Date / Time amoxicillin Allergy Intermediate UNK Verified 09/12/22 10:23 gabapentin AdvReac Other Verified 09/12/22 10:24 Family History Mother Colon cancer Cancer Ovarian Hypertension Father Cancer Gastric Hypertension Surgical History Hx of cholecystectomy S/P ERCP Social History (Updated 09/12/22 @ 14:56 by Katie Perea) Smoking Status: Never smoker alcohol intake: current details: states last drink August 2022 couple of shots substance use type: marijuana, prescription drug and other details: Medical Marijuana ROS ROS Narrative Constitutional: Reports fatigue and weakness. No fever. Loss of appetite. HEENT: Reports systems reviewed and no addt'l complaints, except as documented Respiratory/Chest: Denies chest pain, shortness of breath at rest or with exertion Gastrointestinal: Denies coffee ground emesis, hematemesis or vomiting. Rest as mentioned in HPI Genitourinary: Denies burning urination or new urinary tract symptoms Musculoskeletal: Denies joint pain and limited range of motion Neurologic: Denies seizure-like activity skin: No ulcer. No rash Endocrinology: Reports systems reviewed and no addt'l complaints, except as documented Hematologic/Lymphatic: Reports systems reviewed and no addt'l complaints, except as documented Rest 14 ROS are negative except as mentioned in HPI Physical Exam Narrative General: Alert, Oriented x3, Cooperative HEENT: Atraumatic, PERRLA, EOMI, Normocephalic Oral: Oral mucosa dry. No Gingival or Mucosal Lesions/ Ulcerations Neck: Supple, No JVD, Negative Carotid Bruits Lungs: Air entry diminished in bilateral lung bases. No crepitation/rhonchi Cardiovascular: Regular rate, Regular Rhythm, Normal S1, Normal S2, No murmurs Abdomen: Tenderness present over epigastric and right upper quadrant region. Tenderness also on right upper back. No guarding/rigidity. Bowel sounds sluggish. Mild gaseous distention. No palpable mass. : No renal angle tenderness. No suprapubic tenderness. Extremities: No edema, Capillary Refill Less than 3 Seconds Skin: No rashes, No breakdown Musculoskeletal: No Tenderness to Palpation of Joints or Extremities Neurological: Cranial nerves II-XII grossly intact, DTR 2+/4 and Symmetrical, Neuro grossly intact Psych/Mental Status: Normal Affect, Appropriate. Lab / Micro Data Result Diagrams: 09/12/22 10:40 09/12/22 10:40 Labs: Laboratory Results - last 24 hr 09/12/22 10:40: WBC 12.1 H, RBC 4.71, Hgb 15.0, Hct 41.6, MCV 88.3, MCH 31.8, MCHC 36.1 H, RDW Std Deviation 38.2, RDW Coeff of Linsey 11.9, Plt Count 363, MPV 8.3, Immature Gran % (Auto) 0.300, Neut % (Auto) 71.3 H, Lymph % (Auto) 18.2 L, [place] % (Auto) 7.8, Eos % (Auto) 1.8, Baso % (Auto) 0.6, Absolute Neuts (auto) 8.6 H, Absolute Lymphs (auto) 2.20, Nucleated RBC % 0 09/12/22 10:40: Sodium 136, Potassium 3.9, Chloride 104, Carbon Dioxide 24.0, Anion Gap 8, BUN 14, Creatinine 1.03, Estim Creat Clear Calc 70.10, Est GFR (MDRD) Af Amer 93, Est GFR (MDRD) Non-Af 77, BUN/Creatinine Ratio 13.6, Glucose 139 H, Calcium 9.0, Total Bilirubin 0.80, Direct Bilirubin 0.23, AST 34, ALT 90 H, Alkaline Phosphatase 314 H, Total Protein 8.0, Albumin 3.4, Globulin 4.6 H, Lipase 100 09/12/22 10:40: Phosphorus 3.3, Magnesium 2.5, Ferritin 137, C-React Prot Ext Range 86.70 H 09/12/22 10:40: ESR 61 H 09/12/22 15:02: Ethyl Alcohol < 3.0 09/12/22 15:02: Lactic Acid 0.8 09/12/22 16:33: Urine Opiates Screen POSITIVE H, Urine Methadone Screen NEGATIVE, Ur Barbiturates Screen NEGATIVE, Ur Phencyclidine Scrn NEGATIVE, Ur Amphetamines Screen NEGATIVE, MDMA (Ecstasy) Screen NEGATIVE, U Benzodiazepines Scrn POSITIVE H, Urine Cocaine Screen NEGATIVE, U Cannabinoids Screen POSITIVE H, Ur Drug Screen Comment Radiology Impression Abdomen/Pelvis CT 09/12/22 10:35 IMPRESSION: Mild hepatomegaly and fatty infiltration of the liver. Status post cholecystectomy. Progressive increase in size of the head of the pancreas with progressive increased peripancreatic inflammatory changes suggestive of progressive acute pancreatitis. Electronically Signed: Son Chapman MD at 11:40 EDT , MRCP 09/12/22 13:03 IMPRESSION: Mild dilatation of the common hepatic duct is most likely secondary to reservoir effect status post cholecystectomy. Acute focal pancreatitis. Electronically Signed: Ghassan Jaimes MD at 17:03 EDT , Charges/Coding Visit Charges Inpatient E&M: 22471 Init Hosp L3
[2022-09-12 22:00] VITALS: BP 133/83; PULSE 75; RESP 16; TEMP 36.6; O2SAT 98
[2022-09-12] MEDS: cycloBENZAPRine HCl 10 MG Tablet PO (22:19)
[2022-09-13] MEDS: Metoclopramide 10 MG/2 ML Vial 5 MG IV ×4 (00:08→17:14)
[2022-09-13] MEDS: HYDROmorphone 1 MG/ML Syringe IV ×3 (02:40→10:40)
[2022-09-13] MEDS: 0.9% Normal Saline 1,000 ML 250 ML IV ×6 (03:39→21:52)
[2022-09-13 04:00] VITALS: BP 153/95; PULSE 86; RESP 16; TEMP 36.9; O2SAT 97
[2022-09-13 06:41] LABS: Absolute Lymphocyte Count 1.51 X10^3/uL (0.83-4.51); Absolute Neutrophil Count 8.9 X10^3/uL (2.0-7.7); Basophil# 0.04 X10^3/uL; Basophil% 0.3 % (0-1); Eosinophil# 0.15 X10^3/uL; Eosinophils% 1.3 % (0-5); Hematocrit 39.7 % (40-54); Hemoglobin 13.9 g/dL (13.0-16.5); Lymphocyte # 1.51 X10^3/ul (0.83-4.51); Mean Corpuscular Hgb 31.4 pg (27.0-32.0); Mean Corpuscular Volume 89.6 fL (80-94); Mean Platelet Vol. 8.7 fl (6.2-12.0); Monocyte% 8.6 % (0-10); NRBC Flagged by Analyzer 0 % (0-5); Neutrophil # 8.85 X10^3/uL (2.7-7.7); Neutrophil % 76.5 % (47-70); Platelet Count 320 K/mm3 (150-450); RBC Distribution Width CV 11.7 % (11.6-14.6); RBC Distribution Width SD 38.5 fl (35.1-43.9); Red Blood Count 4.43 M/mm3 (4.6-6.2); White Blood Count 11.6 K/mm3 (4.4-11.0)
[2022-09-13 07:11] LABS: AST(SGOT) 33 U/L (15-37); Alanine Aminotransfer ALT/SGPT 79 U/L (16-61); Albumin, Serum 2.9 g/dL (3.2-5.0); Alkaline Phosphatase 319 U/L (45-117); Anion Gap 7 (5-15); BUN 10 mg/dL (7-18); BUN/Creat Ratio 10.8 RATIO (10-20); Bilirubin, Direct 0.25 mg/dL (0.00-0.30); Calcium,Total 7.9 mg/dL (8.5-10.1); Chloride 105 mmol/L (98-107); Creatinine, Serum 0.92 mg/dL (0.70-1.30); EST Glomerular Filtration Rate 87 mL/min (>60); Est Glom Filt Rate - Afr Amer 106 mL/min (>60); Estimated Creatinine Clearance 78.48 ml/min; Globulin 4.1 g/dL (2.2-4.2); Glucose 90 mg/dL (74-106); Potassium 3.6 mmol/L (3.5-5.1); Sodium Level 138 mmol/L (136-145)
[2022-09-13 07:30] LABS: Erythrocyte Sedimentation Rate 39 mm/hr (0-20)
[2022-09-13 07:36] LABS: Amylase 17 U/L (25-115); Lipase 72 U/L (73-393)
--- NOTE | 2022-09-13 07:53 | PN.HOSP_ITS ---
Subjective Subjective Follow-up for acute recurrent pancreatitis Objective Data Objective Data Vital Signs: Vital Signs Temp Pulse Resp BP Pulse Ox O2 Del Method 98.4 F 86 16 153/95 H 97 Room Air 09/13/22 04:00 09/13/22 04:00 09/13/22 04:00 09/13/22 04:00 09/13/22 04:00 09/13/22 04:00 Oxygen Delivery Method Room Air Weight: 182 lb 0.006 oz Body Mass Index (BMI) 27.6 Intake & Output: Intake and Output for Last 24 Hours 09/11/22 09/12/22 09/13/22 23:59 23:59 23:59 Intake Total 1622.50 / 1622.50 1652.5 / 1652.5 Balance 1622.50 / 1622.50 1652.5 / 1652.5 Lab / Micro Data Result Diagrams: 09/13/22 05:35 09/13/22 05:35 Labs: Laboratory Results - last 24 hr 09/12/22 10:40: WBC 12.1 H, RBC 4.71, Hgb 15.0, Hct 41.6, MCV 88.3, MCH 31.8, MC HC 36.1 H, RDW Std Deviation 38.2, RDW Coeff of Linsey 11.9, Plt Count 363, MPV 8.3, Immature Gran % (Auto) 0.300, Neut % (Auto) 71.3 H, Lymph % (Auto) 18.2 L, [place] % (Auto) 7.8, Eos % (Auto) 1.8, Baso % (Auto) 0.6, Absolute Neuts (auto) 8.6 H, Absolute Lymphs (auto) 2.20, Nucleated RBC % 0 09/12/22 10:40: Sodium 136, Potassium 3.9, Chloride 104, Carbon Dioxide 24.0, Anion Gap 8, BUN 14, Creatinine 1.03, Estim Creat Clear Calc 70.10, Est GFR (MDRD) Af Amer 93, Est GFR (MDRD) Non-Af 77, BUN/Creatinine Ratio 13.6, Glucose 139 H, Calcium 9.0, Total Bilirubin 0.80, Direct Bilirubin 0.23, AST 34, ALT 90 H, Alkaline Phosphatase 314 H, Total Protein 8.0, Albumin 3.4, Globulin 4.6 H, Lipase 100 09/12/22 10:40: Phosphorus 3.3, Magnesium 2.5, Ferritin 137, C-React Prot Ext Range 86.70 H 09/12/22 10:40: ESR 61 H 09/12/22 15:02: Ethyl Alcohol < 3.0 09/12/22 15:02: Lactic Acid 0.8 09/12/22 16:33: Urine Opiates Screen POSITIVE H, Urine Methadone Screen NEGATIVE, Ur Barbiturates Screen NEGATIVE, Ur Phencyclidine Scrn NEGATIVE, Ur Amphetamines Screen NEGATIVE, MDMA (Ecstasy) Screen NEGATIVE, U Benzodiazepines Scrn POSITIVE H, Urine Cocaine Screen NEGATIVE, U Cannabinoids Screen POSITIVE H , Ur Drug Screen Comment 09/13/22 05:35: WBC 11.6 H, RBC 4.43 L, Hgb 13.9, Hct 39.7 L, MCV 89.6, MCH 31.4, MCHC 35.0, RDW Std Deviation 38.5, RDW Coeff of Linsey 11.7, Plt Count 320, MPV 8.7, Immature Gran % (Auto) 0.300, Neut % (Auto) 76.5 H, Lymph % (Auto) 13.0 L, [place] % (Auto) 8.6, Eos % (Auto) 1.3, Baso % (Auto) 0.3, Absolute Neuts (auto) 8.9 H, Absolute Lymphs (auto) 1.51, Nucleated RBC % 0 09/13/22 05:35: Sodium 138, Potassium 3.6, Chloride 105, Carbon Dioxide 26.0, Anion Gap 7, BUN 10, Creatinine 0.92, Estim Creat Clear Calc 78.48, Est GFR (MDRD) Af Amer 106, Est GFR (MDRD) Non-Af 87, BUN/Creatinine Ratio 10.8, Glucose 90, Calcium 7.9 L, Total Bilirubin 0.90, Direct Bilirubin 0.25, AST 33, ALT 79 H , Alkaline Phosphatase 319 H, Total Protein 7.0, Albumin 2.9 L, Globulin 4.1 09/13/22 05:35: ESR 39 H 09/13/22 05:35: C-React Prot Ext Range 86.50 H, Amylase 17 L, Lipase 72 L Radiography Diagnostic Testing: Radiology Impression Abdomen/Pelvis CT 09/12/22 10:35 IMPRESSION: Mild hepatomegaly and fatty infiltration of the liver. Status post cholecystectomy. Progressive increase in size of the head of the pancreas with progressive increased peripancreatic inflammatory changes suggestive of progressive acute pancreatitis. Electronically Signed: Son Chapman MD at 11:40 EDT , MRCP 09/12/22 13:03 IMPRESSION: Mild dilatation of the common hepatic duct is most likely secondary to reservoir effect status post cholecystectomy. Acute focal pancreatitis. Electronically Signed: Ghassan Jaimes MD at 17:03 EDT , Physical Exam Narrative General: Alert, Oriented x3, Cooperative HEENT: Atraumatic, PERRLA, EOMI, Normocephalic Oral: Oral mucosa dry. No Gingival or Mucosal Lesions/ Ulcerations Neck: Supple, No JVD, Negative Carotid Bruits Lungs: Air entry diminished in bilateral lung bases. No crepitation/rhonchi Cardiovascular: Regular rate, Regular Rhythm, Normal S1, Normal S2, No murmurs Abdomen: Tenderness present over epigastric and right upper quadrant region. Tenderness also on right upper back. No guarding/rigidity. Bowel sounds sluggish. Mild gaseous distention. No palpable mass. : No renal angle tenderness. No suprapubic tenderness. Extremities: No edema, Capillary Refill Less than 3 Seconds Skin: No rashes, No breakdown Musculoskeletal: No Tenderness to Palpation of Joints or Extremities Neurological: Cranial nerves II-XII grossly intact, DTR 2+/4 and Symmetrical, Neuro grossly intact Psych/Mental Status: Normal Affect, Appropriate. Assessment & Plan Assessment/Plan (1) Acute pancreatitis: PLAN: Plan 62-year-old male with past medical history of biliary duct strictures status post ERCP with sphincterotomy, common bile dilatation and 1 stent placed into the common bile duct on 08/20/22.? Patient presented again with 5 days of abdominal pain and biliary regurgitation but no vomiting today. 1. Acute abdominal pain due to acute biliary pancreatitis status post surgical biliary stricture and stent placement: [facility] Mild leukocytosis. Lipase 100. ALT 90, AST 34, and phosphorus 314. Total bili normal. GI is consulted. MRCP ordered. I do not think patient needs antibiotic. Will monitor. IV fluid Ringer lactate ordered. CT abdomen pelvis with contrast was done which shows diffuse enlargement of the head of pancreas with peripancreatic inflammatory changes, progressed since previous study. Several tiny cystic changes seen in head of pancreas. Pain control. As per CT abdomen and Dr. Novak impression, biliary stent has not migrated and may be surrounding inflammation causing pain. Patient is on muscle relaxant and pain medication. Continue pancreatic enzyme supplement. 2. Hypertension: Patient on amlodipine continued. Patient had hypertensive urgency during previous admission. Current blood pressure is 131/85. 3. History of cholecystectomy and surgical biliary stricture in 2018 on admission in [facility]. 4. Mild anxiety: Patient on escitalopram. VTE prophylaxis moderate risk: Lovenox 40 mg subcu daily. Living will/advanced directive/end of life care: Patient does not have living will or advanced directive. After discussion of benefits/risks procedures involved with full code, DNR CC arrest and DNR CC, the patient opted for full code. Patient does want artificial life support including intubation, tube feed, ventilator and/chest compression, central venous catheter, vasopressor and DC shock if needed Total time spent in [id number] encounter in discussion of advanced directive 16 minutes. Laboratory Results 09/12/22 10:40: WBC 12.1 H, RBC 4.71, Hgb 15.0, Hct 41.6, MCV 88.3, MCH 31.8, MCHC 36.1 H, RDW Std Deviation 38.2, RDW Coeff of Linsey 11.9, Plt Count 363, MPV 8.3, Immature Gran % (Auto) 0.300, Neut % (Auto) 71.3 H, Lymph % (Auto) 18.2 L, [place] % (Auto) 7.8, Eos % (Auto) 1.8, Baso % (Auto) 0.6, Absolute Neuts (auto) 8.6 H, Absolute Lymphs (auto) 2.20, Nucleated RBC % 0 09/12/22 10:40: Sodium 136, Potassium 3.9, Chloride 104, Carbon Dioxide 24.0, Anion Gap 8, BUN 14, Creatinine 1.03, Estim Creat Clear Calc 70.10, Est GFR (MDRD) Af Amer 93, Est GFR (MDRD) Non-Af 77, BUN/Creatinine Ratio 13.6, Glucose 139 H, Calcium 9.0, Total Bilirubin 0.80, Direct Bilirubin 0.23, AST 34, ALT 90 H, Alkaline Phosphatase 314 H, Total Protein 8.0, Albumin 3.4, Globulin 4.6 H, Lipase 100 Clinical Impression(s) from Imaging Studies Abdomen/Pelvis CT 09/12/22 10:35
--- NOTE | 2022-09-13 08:01 | NURSING ---
spoke with surgery charge nurses, states no time yet for procedure, will let nursing know of time
[2022-09-13 08:02] VITALS: BP 149/86; PULSE 89; RESP 16; TEMP 36.8; O2SAT 99
[2022-09-13 08:12] LABS: Lactic Acid 0.8 mmol/L (0.4-1.9)
[2022-09-13] MEDS: amLODIPine 5 MG Tablet PO (08:36)
[2022-09-13] MEDS: Escitalopram Oxalate 10 MG Tablet PO (08:36)
[2022-09-13] MEDS: Creon 24,000 unit DR Capsule 1 CAP PO ×3 (08:36→17:15)
[2022-09-13] MEDS: Pantoprazole Sodium 40 MG Tablet PO ×2 (08:36→21:51)
--- NOTE | 2022-09-13 09:07 | PCM.PN.HOSP ---
Subjective Subjective Follow-up for acute recurrent pancreatitis. Patient states he has epigastric pain for last 4 years but this time this is radiated towards right upper quadrant and back. Patient still has constant pain. CT abdomen and MRCP findings explained to the patient. Patient seen by Dr. Novak. Objective Data Objective Data Vital Signs: Vital Signs Temp Pulse Resp BP Pulse Ox O2 Del Method 98.2 F 89 16 149/86 H 99 Room Air 09/13/22 08:02 09/13/22 08:02 09/13/22 08:02 09/13/22 08:02 09/13/22 08:02 09/13/22 08:02 Oxygen Delivery Method Room Air Weight: 182 lb 0.006 oz Body Mass Index (BMI) 27.6 Intake & Output: Intake and Output for Last 24 Hours 09/11/22 09/12/22 09/13/22 23:59 23:59 23:59 Intake Total 1622.50 / 1622.50 1652.5 / 1652.5 Balance 1622.50 / 1622.50 1652.5 / 1652.5 Lab / Micro Data Result Diagrams: 09/13/22 05:35 09/13/22 05:35 Labs: Laboratory Results - last 24 hr 09/12/22 10:40: WBC 12.1 H, RBC 4.71, Hgb 15.0, Hct 41.6, MCV 88.3, MCH 31.8, MCHC 36.1 H, RDW Std Deviation 38.2, RDW Coeff of Linsey 11.9, Plt Count 363, MPV 8.3, Immature Gran % (Auto) 0.300, Neut % (Auto) 71.3 H, Lymph % (Auto) 18.2 L, [place] % (Auto) 7.8, Eos % (Auto) 1.8, Baso % (Auto) 0.6, Absolute Neuts (auto) 8.6 H, Absolute Lymphs (auto) 2.20, Nucleated RBC % 0 09/12/22 10:40: Sodium 136, Potassium 3.9, Chloride 104, Carbon Dioxide 24.0, Anion Gap 8, BUN 14, Creatinine 1.03, Estim Creat Clear Calc 70.10, Est GFR (MDRD) Af Amer 93, Est GFR (MDRD) Non-Af 77, BUN/Creatinine Ratio 13.6, Glucose 139 H, Calcium 9.0, Total Bilirubin 0.80, Direct Bilirubin 0.23, AST 34, ALT 90 H, Alkaline Phosphatase 314 H, Total Protein 8.0, Albumin 3.4, Globulin 4.6 H, Lipase 100 09/12/22 10:40: Phosphorus 3.3, Magnesium 2.5, Ferritin 137, C-React Prot Ext Range 86.70 H 09/12/22 10:40: ESR 61 H 09/12/22 15:02: Ethyl Alcohol < 3.0 09/12/22 15:02: Lactic Acid 0.8 09/12/22 16:33: Urine Opiates Screen POSITIVE H, Urine Methadone Screen NEGATIVE, Ur Barbiturates Screen NEGATIVE, Ur Phencyclidine Scrn NEGATIVE, Ur Amphetamines Screen NEGATIVE, MDMA (Ecstasy) Screen NEGATIVE, U Benzodiazepines Scrn POSITIVE H, Urine Cocaine Screen NEGATIVE, U Cannabinoids Screen POSITIVE H, Ur Drug Screen Comment 09/13/22 05:35: WBC 11.6 H, RBC 4.43 L, Hgb 13.9, Hct 39.7 L, MCV 89.6, MCH 31.4, MCHC 35.0, RDW Std Deviation 38.5, RDW Coeff of Linsey 11.7, Plt Count 320, MPV 8.7, Immature Gran % (Auto) 0.300, Neut % (Auto) 76.5 H, Lymph % (Auto) 13.0 L, [place] % (Auto) 8.6, Eos % (Auto) 1.3, Baso % (Auto) 0.3, Absolute Neuts (auto) 8.9 H, Absolute Lymphs (auto) 1.51, Nucleated RBC % 0 09/13/22 05:35: Sodium 138, Potassium 3.6, Chloride 105, Carbon Dioxide 26.0, Anion Gap 7, BUN 10, Creatinine 0.92, Estim Creat Clear Calc 78.48, Est GFR (MDRD) Af Amer 106, Est GFR (MDRD) Non-Af 87, BUN/Creatinine Ratio 10.8, Glucose 90, Calcium 7.9 L, Total Bilirubin 0.90, Direct Bilirubin 0.25, AST 33, ALT 79 H, Alkaline Phosphatase 319 H, Total Protein 7.0, Albumin 2.9 L, Globulin 4.1 09/13/22 05:35: ESR 39 H 09/13/22 05:35: C-React Prot Ext Range 86.50 H, Amylase 17 L, Lipase 72 L 09/13/22 07:37: Lactic Acid 0.8 Radiography Diagnostic Testing: Radiology Impression Abdomen/Pelvis CT 09/12/22 10:35 IMPRESSION: Mild hepatomegaly and fatty infiltration of the liver. Status post cholecystectomy. Progressive increase in size of the head of the pancreas with progressive increased peripancreatic inflammatory changes suggestive of progressive acute pancreatitis. Electronically Signed: Son Chapman MD at 11:40 EDT , MRCP 09/12/22 13:03 IMPRESSION: Mild dilatation of the common hepatic duct is most likely secondary to reservoir effect status post cholecystectomy. Acute focal pancreatitis. Electronically Signed: Ghassan Jaimes MD at 17:03 EDT , Physical Exam Narrative No fever. No tachycardia. Patient is getting IV fluid normal [id number] mill per hour. N.p.o. patient has infrequent urination due to high dose of IV fluid General: Alert, Oriented x3, Cooperative HEENT: Atraumatic, PERRLA, EOMI, Normocephalic Oral: Oral mucosa moist. No Gingival or Mucosal Lesions/ Ulcerations Neck: Supple, No JVD, Negative Carotid Bruits Lungs: Air entry equal in bilateral lung bases. No crepitation/rhonchi Cardiovascular: Regular rate, Regular Rhythm, Normal S1, Normal S2, No murmurs Abdomen: Tenderness present over epigastric and right upper quadrant region. Tenderness also on right upper back. No guarding/rigidity. Bowel sounds sluggish. Mild gaseous distention. No palpable mass. : No renal angle tenderness. No suprapubic tenderness. Extremities: No edema, Capillary Refill Less than 3 Seconds Skin: No rashes, No breakdown Musculoskeletal: No Tenderness to Palpation of Joints or Extremities Neurological: Cranial nerves II-XII grossly intact, DTR 2+/4 and Symmetrical, Neuro grossly intact Psych/Mental Status: Normal Affect, Appropriate. Assessment & Plan Assessment/Plan (1) Acute pancreatitis: PLAN: Plan 62-year-old male with past medical history of biliary duct strictures status post ERCP with sphincterotomy, common bile dilatation and 1 stent placed into the common bile duct on 08/20/22.? Patient presented again with 5 days of abdominal pain and biliary regurgitation but no vomiting today. 1. Acute abdominal pain due to acute biliary pancreatitis status post surgical biliary stricture and stent placement: Patient is being admitted on [facility] floor. Mild leukocytosis. Lipase 100. ALT 90, AST 34, and phosphorus 314. Total bili normal. GI is consulted. MRCP ordered. I do not think patient needs antibiotic. CT abdomen pelvis with contrast was done which shows diffuse enlargement of the head of pancreas with peripancreatic inflammatory changes, progressed since previous study. Several tiny cystic changes seen in head of pancreas. Pain control. As per CT abdomen and Dr. Novak impression, biliary stent has not migrated and may be surrounding inflammation causing pain. Patient is on muscle relaxant and pain medication. Continue pancreatic enzyme supplement. 09/13: Patient had MRI/MRCP which shows mild dilatation of common hepatic duct with peripancreatic inflammatory changes. Cystic changes in the head of pancreas. Patient still NPO. On IV fluid normal saline 250 mill per hour. Labs for IgG4, PHYLICIA, gammaglobulin ordered to rule out autoimmune pancreatitis. Patient also has smoking marijuana which might be risk factor for recurrent pancreatitis. Advised quitting marijuana or substance use in any form. On PPI and Reglan. Leukocytosis slightly decreased. No fever. Patient on empiric IV Zosyn by GI 2. Hypertension: Patient on amlodipine continued. Patient had hypertensive urgency during previous admission. Current blood pressure is 131/85. 09/13: Blood pressure is controlled 3. History of cholecystectomy and surgical biliary stricture in 2018 on admission in [facility]. 4. Mild anxiety: Patient on escitalopram. VTE prophylaxis moderate risk: Lovenox 40 mg subcu daily. Total time of the visit including total time spent in counseling or coordination of care, (more than 50% of the total time, spent in obtaining medical information from nurses and other ancillary care providers,explaining to the patient about labs, imaging, diagnosis and management of active complex medical conditions), discussion with zipper trimmer hand, review of labs and imaging is 40 minutes. Living will/advanced directive/end of life care: Patient does not have living will or advanced directive. After discussion of benefits/risks procedures involved with full code, DNR CC arrest and DNR CC, the patient opted for full code. Patient does want artificial life support including intubation, tube feed, ventilator and/chest compression, central venous catheter, vasopressor and DC shock if needed Total time spent in [id number] encounter in discussion of advanced directive 16 minutes. Clinical Impression(s) from Imaging Studies Abdomen/Pelvis CT 09/12/22 10:35 IMPRESSION: Mild hepatomegaly and fatty infiltration of the liver. Status post cholecystectomy. Progressive increase in size of the head of the pancreas with progressive increased peripancreatic inflammatory changes suggestive of progressive acute pancreatitis. Electronically Signed: Son Chapman MD at 11:40 EDT , MRCP 09/12/22 13:03 IMPRESSION: Mild dilatation of the common hepatic duct is most likely secondary to reservoir effect status post cholecystectomy. Acute focal pancreatitis. Electronically Signed: Ghassan Jaimes MD at 17:03 EDT , Laboratory Results 09/12/22 10:40: WBC 12.1 H, RBC 4.71, Hgb 15.0, Hct 41.6, MCV 88.3, MCH 31.8, MCHC 36.1 H, RDW Std Deviation 38.2, RDW Coeff of Linsey 11.9, Plt Count 363, MPV 8.3, Immature Gran % (Auto) 0.300, Neut % (Auto) 71.3 H, Lymph % (Auto) 18.2 L, [place] % (Auto) 7.8, Eos % (Auto) 1.8, Baso % (Auto) 0.6, Absolute Neuts (auto) 8.6 H, Absolute Lymphs (auto) 2.20, Nucleated RBC % 0 09/12/22 10:40: Sodium 136, Potassium 3.9, Chloride 104, Carbon Dioxide 24.0, Anion Gap 8, BUN 14, Creatinine 1.03, Estim Creat Clear Calc 70.10, Est GFR (MDRD) Af Amer 93, Est GFR (MDRD) Non-Af 77, BUN/Creatinine Ratio 13.6, Glucose 139 H, Calcium 9.0, Total Bilirubin 0.80, Direct Bilirubin 0.23, AST 34, ALT 90 H, Alkaline Phosphatase 314 H, Total Protein 8.0, Albumin 3.4, Globulin 4.6 H, Lipase 100 09/13/22 05:35: WBC 11.6 H, RBC 4.43 L, Hgb 13.9, Hct 39.7 L, MCV 89.6, MCH 31.4, MCHC 35.0, RDW Std Deviation 38.5, RDW Coeff of Linsey 11.7, Plt Count 320, MPV 8.7, Immature Gran % (Auto) 0.300, Neut % (Auto) 76.5 H, Lymph % (Auto) 13.0 L, [place] % (Auto) 8.6, Eos % (Auto) 1.3, Baso % (Auto) 0.3, Absolute Neuts (auto) 8.9 H, Absolute Lymphs (auto) 1.51, Nucleated RBC % 0 09/13/22 05:35: Sodium 138, Potassium 3.6, Chloride 105, Carbon Dioxide 26.0, Anion Gap 7, BUN 10, Creatinine 0.92, Estim Creat Clear Calc 78.48, Est GFR (MDRD) Af Amer 106, Est GFR (MDRD) Non-Af 87, BUN/Creatinine Ratio 10.8, Glucose 90, Calcium 7.9 L, Total Bilirubin 0.90, Direct Bilirubin 0.25, AST 33, ALT 79 H, Alkaline Phosphatase 319 H, Total Protein 7.0, Albumin 2.9 L, Globulin 4.1 09/13/22 05:35: ESR 39 H 09/13/22 05:35: C-React Prot Ext Range 86.50 H, Amylase 17 L, Lipase 72 L 09/13/22 07:37: Lactic Acid 0.8 Clinical Impression(s) from Imaging Studies Abdomen/Pelvis CT 09/12/22 10:35 IMPRESSION: Mild hepatomegaly and fatty infiltration of the liver. Status post cholecystectomy. Progressive increase in size of the head of the pancreas with progressive increased peripancreatic inflammatory changes suggestive of progressive acute pancreatitis. Charges/Coding Visit Charges Inpatient E&M: 93276 Subs Hosp L3
--- NOTE | 2022-09-13 10:10 | CASEMGMT ---
Addendum entered by Lotus Verma 09/13/22 11:06: CORRECTION: Pt did not request medication, nurse was not notified. Original Note: PIPER JORGE Assessment: Face to Face with pt for initial transition planning/care coordination assessment. PIPER JORGE introduced self and role at [facility], pt voices understanding and consents to assessment. Pt is A/O x4 and answers all questions appropriately at this time. Pt in bed. Pt's uncle was in the room. Pt gave verbal permission to speak in front of the Uncle. Pt did request pain medication. Pt's nurse was notified. Care providers, pharmacy, and demographics verified/updated. Admitting Dx: Biliary Pancreatitis. PCP: Margy. Specialists: Paresh, Pain Management; Friend, GI. Preferred Pharmacy: [facility]. Insurance: Medicare Part A B, Medicaid [employer]. Prescription Benefit: yes. LW/HPOA: Pt denies having a LW/DPOA and denies need for info regarding AD. LNOK: Tiffany Moncada, sister; Kathleen Ulloa, dtr. Living Arrangements: Pt lives alone in a one story home. Pt denied any issues with steps. Pt reports being I in ADLs. Transportation: Pt drives self and denies concerns with transportation. His sister and tinoon can assist if needed. DME/HHC/SNF: Pt denied any DME. Pt denied any current or past HHC including therapy. Pt denied any SNF stays. Pt states no concerns with going home at time of dc. Pt states no further concerns/needs. CM to follow. Advised pt to ask CM if any further question/concerns/needs arise, voices understanding. Pt Goal: Home. Plan: Home. ? ?
[2022-09-13] MEDS: 0.9% Saline Lock 10 ML Syringe IV ×2 (10:40→17:15)
[2022-09-13] MEDS: oxyCODONE HCl Cr 10 MG Tablet 20 MG PO ×2 (14:34→21:51)
[2022-09-13 15:06] VITALS: BP 140/85; PULSE 97; RESP 16; TEMP 37; O2SAT 97
[2022-09-13 22:00] VITALS: BP 145/86; PULSE 87; RESP 16; TEMP 36.8; O2SAT 98
[2022-09-14] VITALS (11 sets, daily range): BP systolic 105–153; BP diastolic 64–99; PULSE 81–92; RESP 15–18; TEMP 36.4–37.2; O2SAT 92–98; BMI 27.6
[2022-09-14] MEDS: Metoclopramide 10 MG/2 ML Vial 5 MG IV ×2 (00:42→05:35)
[2022-09-14] MEDS: 0.9% Normal Saline 1,000 ML 250 ML IV ×5 (01:50→22:51)
[2022-09-14 07:15] LABS: Absolute Lymphocyte Count 1.64 X10^3/uL (0.83-4.51); Absolute Neutrophil Count 7.5 X10^3/uL (2.0-7.7); Basophil# 0.05 X10^3/uL; Basophil% 0.5 % (0-1); Eosinophil# 0.19 X10^3/uL; Eosinophils% 1.7 % (0-5); Hematocrit 38.5 % (40-54); Hemoglobin 13.6 g/dL (13.0-16.5); Lymphocyte # 1.64 X10^3/ul (0.83-4.51); Lymphocyte % 14.9 % (19-41); Mean Corp Hgb Conc 35.3 g/dL (32-36); Mean Corpuscular Hgb 31.2 pg (27.0-32.0); Mean Corpuscular Volume 88.3 fL (80-94); Mean Platelet Vol. 8.9 fl (6.2-12.0); Monocyte# 1.52 X10^3/uL; Monocyte% 13.9 % (0-10); NRBC Flagged by Analyzer 0 % (0-5); Neutrophil # 7.53 X10^3/uL (2.7-7.7); Neutrophil % 68.6 % (47-70); POSITIVE DIFFERENTIAL YES; Platelet Count 335 K/mm3 (150-450); RBC Distribution Width CV 11.8 % (11.6-14.6); RBC Distribution Width SD 38.2 fl (35.1-43.9); Red Blood Count 4.36 M/mm3 (4.6-6.2)
[2022-09-14 07:21] LABS: Differential Indicated SCAN CRITERIA MET
--- NOTE | 2022-09-14 07:21 | PCM.PN.HOSP ---
Subjective Subjective Follow-up for acute biliary pancreatitis Objective Data Objective Data Vital Signs: Vital Signs Temp Pulse Resp BP Pulse Ox O2 Del Method 98.9 F 83 16 146/86 H 97 Room Air 09/14/22 05:46 09/14/22 05:46 09/14/22 05:46 09/14/22 05:46 09/14/22 05:46 09/14/22 05:46 Oxygen Delivery Method Room Air Weight: 182 lb 0.006 oz Body Mass Index (BMI) 27.6 Intake & Output: Intake and Output for Last 24 Hours 09/12/22 09/13/22 09/14/22 23:59 23:59 23:59 Intake Total 1622.50 / 1622.50 6102.0 / 6102.0 Balance 1622.50 / 1622.50 6102.0 / 6102.0 Lab / Micro Data Result Diagrams: 09/14/22 05:35 09/14/22 05:35 Labs: Laboratory Results - last 24 hr 09/13/22 05:35: ESR 39 H 09/13/22 05:35: C-React Prot Ext Range 86.50 H, Amylase 17 L, Lipase 72 L 09/13/22 07:37: Lactic Acid 0.8 Physical Exam Narrative Seen and examined. No fever. No tachycardia. BP normal. Patient still has abdominal pain but better than yesterday. He does not have radiation to right upper quadrant or back. Physical exam General: Alert, Oriented x3, Cooperative HEENT: Atraumatic, PERRLA, EOMI, Normocephalic Oral: Oral mucosa moist.? No Gingival or Mucosal Lesions/ Ulcerations Neck: Supple, No JVD, Negative Carotid Bruits Lungs:? Air entry equal in bilateral lung bases.? No crepitation/rhonchi Cardiovascular: Regular rate, Regular Rhythm, Normal S1, Normal S2, No murmurs Abdomen: Tenderness present over epigastric and right upper quadrant region.?No guarding/rigidity.? Bowel sounds sluggish.? No palpable mass. : No renal angle tenderness.? No suprapubic tenderness. Extremities: No edema, Capillary Refill Less than 3 Seconds Skin: No rashes, No breakdown Musculoskeletal: No Tenderness to Palpation of Joints or Extremities Neurological: Cranial nerves II-XII grossly intact, DTR? 2+/4 and Symmetrical, Neuro grossly intact Psych/Mental Status: Normal Affect, Appropriate. Assessment & Plan Assessment/Plan (1) Acute pancreatitis: PLAN: Plan 62-year-old male with past medical history of biliary duct strictures status post ERCP with sphincterotomy, common bile dilatation and 1 stent placed into the common bile duct on 08/20/22.? Patient presented again with 5 days of abdominal pain and biliary regurgitation but no vomiting today. 1.? Acute abdominal pain due to acute biliary pancreatitis status post surgical biliary stricture and stent placement: Patient is being admitted on [facility] floor.? Mild leukocytosis.? Lipase 100.? ALT 90, AST 34, and phosphorus 314.? Total bili normal.? GI is consulted.? MRCP ordered.? I do not think patient needs antibiotic.? ? CT abdomen pelvis with contrast was done which shows diffuse enlargement of the head of pancreas with peripancreatic inflammatory changes, progressed since previous study.? Several tiny cystic changes seen in head of pancreas.? Pain control.? As per CT abdomen and Dr. Novak impression, biliary stent has not migrated and may be surrounding inflammation causing pain.? Patient is on muscle relaxant and pain medication.? Continue pancreatic enzyme supplement. 09/13: Patient had MRI/MRCP which shows mild dilatation of common hepatic duct with peripancreatic inflammatory changes.? Cystic changes in the head of pancreas.? Patient still NPO.? On IV fluid normal saline 250 mill per hour.? Labs for IgG4, PHYLICIA, gammaglobulin ordered to rule out autoimmune pancreatitis.? Patient also has smoking marijuana which might be risk factor for recurrent pancreatitis.? Advised quitting marijuana or substance use in any form.? On PPI and Reglan.? Leukocytosis slightly decreased.? No fever.? Patient on empiric IV Zosyn by GI 09/14: No fever. Abdominal pain better with no radiation to RUQ/back. Plan for ERCP today. Ne 2.? Hypertension: Patient on amlodipine continued.? Patient had hypertensive urgency during previous admission.? Current blood pressure is 131/85. 09/13: Blood pressure is controlled 3.? History of cholecystectomy and surgical biliary stricture in 2018 on admission in [facility]. 4.? Mild anxiety: Patient on escitalopram. VTE prophylaxis moderate risk: Lovenox 40 mg subcu daily. Charges/Coding Visit Charges Inpatient E&M: 03329 Subs Hosp L2
--- NOTE | 2022-09-14 07:40 | PCM.PROGNOTE ---
Subjective Subjective Patient still complaining of some midepigastric pain. He still having some mild nausea. He rates his pain at a 6 out of 10. Objective Data Objective Data Vital Signs: Vital Signs Temp Pulse Resp BP Pulse Ox O2 Del Method 98.9 F 83 16 146/86 H 97 Room Air 09/14/22 05:46 09/14/22 05:46 09/14/22 05:46 09/14/22 05:46 09/14/22 05:46 09/14/22 05:46 Oxygen Delivery Method Room Air Weight: 182 lb 0.006 oz Body Mass Index (BMI) 27.6 Intake & Output: Intake and Output for Last 24 Hours 09/12/22 09/13/22 09/14/22 23:59 23:59 23:59 Intake Total 1622.50 / 1622.50 6102.0 / 6102.0 Balance 1622.50 / 1622.50 6102.0 / 6102.0 Lab / Micro Data Result Diagrams: 09/14/22 05:35 09/13/22 05:35 Labs: Laboratory Results - last 24 hr 09/13/22 07:37: Lactic Acid 0.8 09/14/22 05:35: WBC 11.0, RBC 4.36 L, Hgb 13.6, Hct 38.5 L, MCV 88.3, MCH 31.2, MCHC 35.3, RDW Std Deviation 38.2, RDW Coeff of Linsey 11.8, Plt Count 335, MPV 8.9, Immature Gran % (Auto) 0.400, Neut % (Auto) 68.6, Lymph % (Auto) 14.9 L, [place] % (Auto) 13.9 H, Eos % (Auto) 1.7, Baso % (Auto) 0.5, Absolute Neuts (auto) 7.5, Absolute Lymphs (auto) 1.64, Nucleated RBC % 0 Physical Exam Narrative General: Alert, Oriented x3, Cooperative HEENT: Atraumatic, PERRLA, EOMI, Normocephalic Oral: Oral mucosa moist.? No Gingival or Mucosal Lesions/ Ulcerations Neck: Supple, No JVD, Negative Carotid Bruits Lungs:? Air entry equal in bilateral lung bases.? No crepitation/rhonchi Cardiovascular: Regular rate, Regular Rhythm, Normal S1, Normal S2, No murmurs Abdomen: Tenderness present over epigastric and right upper quadrant region.? Tenderness also on right upper back.? No guarding/rigidity.? Bowel sounds sluggish.? Mild gaseous distention.? No palpable mass. : No renal angle tenderness.? No suprapubic tenderness. Extremities: No edema, Capillary Refill Less than 3 Seconds Skin: No rashes, No breakdown Musculoskeletal: No Tenderness to Palpation of Joints or Extremities Neurological: Cranial nerves II-XII grossly intact, DTR? 2+/4 and Symmetrical, Neuro grossly intact Psych/Mental Status: Normal Affect, Appropriate. Assessment & Plan Assessment/Plan (1) Acute pancreatitis: PLAN: Acute pancreatitis from unknown etiology at this time. I suspect this is a combination of things secondary to possibly migrated stent, recent alcohol usage, chronic marijuana usage. His ESR and CRP is still really elevated. His white blood cell count is improving. Plan is for removal of the pancreatic stent today. (2) Abdominal pain: PLAN: Continue IV fluids and pain medicine. Charges/Coding Visit Charges Inpatient E&M: 65838 Subs Hosp L2
[2022-09-14 08:03] LABS: AST(SGOT) 25 U/L (15-37); Alanine Aminotransfer ALT/SGPT 61 U/L (16-61); Albumin, Serum 2.9 g/dL (3.2-5.0); Alkaline Phosphatase 321 U/L (45-117); Anion Gap 8 (5-15); BUN 5 mg/dL (7-18); BUN/Creat Ratio 5.9 RATIO (10-20); Calcium,Total 8.3 mg/dL (8.5-10.1); Chloride 104 mmol/L (98-107); Creatinine, Serum 0.84 mg/dL (0.70-1.30); EST Glomerular Filtration Rate 97 mL/min (>60); Est Glom Filt Rate - Afr Amer 118 mL/min (>60); Estimated Creatinine Clearance 85.95 ml/min; Globulin 4.1 g/dL (2.2-4.2); Glucose 97 mg/dL (74-106); Potassium 3.5 mmol/L (3.5-5.1); Sodium Level 138 mmol/L (136-145)
[2022-09-14 08:39] LABS: Platelet Estimate ADEQUATE (ADEQ); Red Cell Morphology NORM C+C NORMAL (NORM C&C)
[2022-09-14 09:13] LABS: Erythrocyte Sedimentation Rate 61 mm/hr (0-20)
[2022-09-14] MEDS: Lactated Ringers 1,000 ML 15 ML IV (09:37)
[2022-09-14] MEDS: HYDROmorphone 1 MG/ML Syringe IV (09:41)
--- NOTE | 2022-09-14 10:50 | NURSING ---
report called to [facility] in [place]
--- NOTE | 2022-09-14 12:00 | RAD_ITS ---
STUDY: ERCP REASON FOR EXAM: Male, 62 years old. ERCP FLUOROSCOPY TIME (if supplied): ( 29 seconds ) minutes/seconds. 6 images were submitted. TECHNIQUE: An ERCP was performed by the epic [facility]ow specialist. Imaging was provided. COMPARISON: None. FINDINGS: Contrast is seen within the common bile duct and central intrahepatic biliary ducts. A balloon catheter was seen. RAD/ERCP Biliary/Pancreas IMPRESSION: ERCP. Opacification of the intrahepatic biliary ducts and common bile duct. Electronically Signed: Son Chapman MD at 8:08 EST ,
[2022-09-14 13:08] LABS: Anti-Centromere B Ab <0.2 AI (0.0-0.9); Anti-Chromatin <0.2 AI (0.0-0.9); Anti-Jo <0.2 AI (0.0-0.9); Anti-Scleroderma-70 AB <0.2 AI (0.0-0.9); RNP Ab <0.2 AI (0.0-0.9); SJOGREN'S Anti-SS-A test < 0.2 AI (0.0-0.9); SJOGREN'S Anti-SS-B test < 0.2 AI (0.0-0.9); Smith Ab <0.2 AI (0.0-0.9)
[2022-09-14] MEDS: oxyCODONE HCl Cr 10 MG Tablet 20 MG PO ×2 (14:15→21:51)
[2022-09-14] MEDS: amLODIPine 5 MG Tablet PO (14:16)
[2022-09-14] MEDS: Enoxaparin 40 MG/0.4 ML Syringe SC (14:16)
[2022-09-14] MEDS: Escitalopram Oxalate 10 MG Tablet PO (14:17)
[2022-09-14] MEDS: Multivitamins,Therapeutic Tablet 1 TABLET PO (14:17)
[2022-09-14] MEDS: Pantoprazole Sodium 40 MG Tablet PO ×2 (14:17→21:51)
[2022-09-14] MEDS: Creon 24,000 unit DR Capsule 1 CAP PO ×2 (14:19→17:48)
--- NOTE | 2022-09-14 15:11 | CHAPLAIN ---
Type of Pastoral Visit _x__ Initial Visit ___ Follow-up Visit ___ On-call Visit ___ General Patient Visit ___ Spiritual Assessment ___ Family Conference ___ Bereavement ___ Rapid Response ___ Code Blue ___ Other (describe below) Pastoral Care Referral From _x__ Patient ___ Family ___ Nurse ___ Physician ___ Assistant Engineer ___ Apprentice Cosmetologist ___ Other (describe below) Sacrament/Intervention _x__ Active listening ___ Anointing ___ Jew ___ Bereavement ___ Communion _x__ Shaylee exploration ___ ___ Life review _x__ Prayer ___ Reconciliation ___ Sacrament of Sick ___ Supportive presence ___ Wedding ___ Other (describe below) Pastoral Comments patient was in surgery at time of visit but his sister was in the room; sister is offered support and presence; sister gives details of last four years of health issues for brother; patient was seen in previous admissions; presence and prayer were well received by sister; attempt at a visit next week will be made if patient is still here
--- NOTE | 2022-09-14 17:13 | OP.CCLET_ITS ---
09/14/2022 Alex Ji Re : ERCP procedure for Kamlesh Carter Dear Margy This procedure was performed on Wednesday, September 14, 2022. My impressions and recommendations are as follows: Impressions : - A single localized biliary stricture was found in the middle third of the main bile duct. The stricture was indeterminate. - The upper third of the main bile duct was dilated, uncertain significance. - The patient has had a cholecystectomy. - A biliary sphincterotomy was performed. - The biliary tree was swept and sludge was found. - One stent was removed from the pancreatic duct. Recommendations : Continue IV fluids at 250 cc an hour, DC Lovenox as acute pancreatitis can convert into hemorrhagic pancreatitis. Use SCDs for DVT prophylaxis. Clear liquid diet. Continue pain regimen. My findings are described in the full procedure note, which is enclosed. If I can be of further assistance, please feel free to contact me at . Sincerely, Sb Friend, 09/14/2022 5:12:53 PM This report has been signed electronically.
--- NOTE | 2022-09-14 17:13 | OP.ERCP_ITS ---
Patient Name: Kamlesh Carter Procedure Date: 09/14/2022 11:43 AM Date of : 1960 Age: 62 Procedure: ERCP Indications: Acute recurrent pancreatitis Providers: Sb Novak DO Medicines: See the Anesthesia note for documentation of the administered medications Patient Profile: This is a 62 year old male. Refer to note in patient chart for documentation of history and physical. Patient has symptoms of acute right upper quadrant abdominal pain. Complications: No immediate complications. Procedure: Pre-Anesthesia Assessment: - Prior to the procedure, a History and Physical was performed, and patient medications and allergies were reviewed. The patient is competent. The risks and benefits of the procedure and the sedation options and risks were discussed with the patient. All questions were answered and informed consent was obtained. Patient identification and proposed procedure were verified by the physician in the pre-procedure area. Mental Status Examination: alert and oriented. Airway Examination: normal oropharyngeal airway and neck mobility. Respiratory Examination: clear to auscultation. CV Examination: normal. Prophylactic Antibiotics: The patient does not require prophylactic antibiotics. Prior Anticoagulants: The patient has taken no previous anticoagulant or antiplatelet agents. After reviewing the risks and benefits, the patient was deemed in satisfactory condition to undergo the procedure. The anesthesia plan was to use general anesthesia. Immediately prior to administration of medications, the patient was re-assessed for adequacy to receive sedatives. The heart rate, respiratory rate, oxygen saturations, blood pressure, adequacy of pulmonary ventilation, and response to care were monitored throughout the procedure. The physical status of the patient was re-assessed after the procedure. After obtaining informed consent, the scope was passed under direct vision. Throughout the procedure, the patient's blood pressure, pulse, and oxygen saturations were monitored continuously. The Duodenoscope was introduced through the mouth, and advanced to the duodenum and used to inject contrast into the bile duct and ventral pancreatic duct. The ERCP was accomplished without difficulty. The patient tolerated the procedure well. Scope In: 12:15:30 PM Scope Out: 12:34:31 PM Total Procedure Duration Time 0 hours 19 minutes 1 second Findings: [employer] film was normal. The esophagus was successfully intubated under direct vision. The scope was advanced to a normal major papilla in the descending duodenum without detailed examination of the pharynx, larynx and associated structures, and upper GI tract. The upper GI tract was grossly normal. The bile duct was deeply cannulated. Contrast was injected. I personally interpreted the bile duct images. There was brisk flow of contrast through the ducts. Image quality was excellent. Contrast extended to the biliary pancreatic junction. Opacification of the entire biliary tree except for the cystic duct and gallbladder and entire biliary tree except for the gallbladder was successful. The maximum diameter of the ducts was 8 mm. The middle third of the main bile duct contained a single localized stenosis 3 mm in length. The upper third of the main bile duct was diffusely dilated, uncertain significance. The largest diameter was 9 mm. A cholecystectomy had been performed. A straight Roadrunner wire was passed into the biliary tree. A 5 mm biliary sphincterotomy was made with a traction (standard) sphincterotome using ERBE electrocautery. There was no post-sphincterotomy bleeding. The biliary tree was swept with a 15 mm balloon starting at the bifurcation. Sludge was swept from the duct. One stent was removed from the pancreatic duct using a snare and sent for cultures. The stent was found to be partially occluded via the water column test. Impression: - A single localized biliary stricture was found in the middle third of the main bile duct. The stricture was indeterminate. - The upper third of the main bile duct was dilated, uncertain significance. - The patient has had a cholecystectomy. - A biliary sphincterotomy was performed. - The biliary tree was swept and sludge was found. - One stent was removed from the pancreatic duct. Recommendation: Continue IV fluids at 250 cc an hour, DC Lovenox as acute pancreatitis can convert into hemorrhagic pancreatitis. Use SCDs for DVT prophylaxis. Clear liquid diet. Continue pain regimen. Procedure Code(s): --- Professional --- 50580, Endoscopic retrograde cholangiopancreatography (ERCP); with removal of foreign body(s) or stent(s) from biliary/pancreatic duct(s) 68775, Endoscopic retrograde cholangiopancreatography (ERCP); with removal of calculi/debris from biliary/pancreatic duct(s) 66095, Endoscopic retrograde cholangiopancreatography (ERCP); with sphincterotomy/papillotomy 32955, 26, Endoscopic catheterization of the biliary ductal system, radiological supervision and interpretation CPT copyright 2017 [employer]. All rights reserved. The codes documented in this report are preliminary and upon motor vehicle license clerk review may be revised to meet current compliance requirements. Sb Novak DO 09/14/2022 5:12:53 PM This report has been signed electronically. Number of Addenda: 0 Note Initiated On: 09/14/2022 11:43 AM
[2022-09-15] VITALS (7 sets, daily range): BP systolic 120–145; BP diastolic 60–93; PULSE 62–78; RESP 15–18; TEMP 36.7–36.9; O2SAT 96–98
[2022-09-15] MEDS: 0.9% Normal Saline 1,000 ML 250 ML IV ×5 (02:59→20:42)
[2022-09-15 06:41] LABS: Absolute Lymphocyte Count 1.24 X10^3/uL (0.83-4.51); Absolute Neutrophil Count 6.9 X10^3/uL (2.0-7.7); Basophil# 0.01 X10^3/uL; Basophil% 0.1 % (0-1); Eosinophil# 0.01 X10^3/uL; Eosinophils% 0.1 % (0-5); Hematocrit 36.3 % (40-54); Hemoglobin 12.7 g/dL (13.0-16.5); Lymphocyte # 1.24 X10^3/ul (0.83-4.51); Lymphocyte % 13.7 % (19-41); Mean Corpuscular Hgb 30.7 pg (27.0-32.0); Mean Corpuscular Volume 87.7 fL (80-94); Mean Platelet Vol. 9.1 fl (6.2-12.0); Monocyte% 9.9 % (0-10); NRBC Flagged by Analyzer 0 % (0-5); Neutrophil # 6.87 X10^3/uL (2.7-7.7); Neutrophil % 75.8 % (47-70); Platelet Count 321 K/mm3 (150-450); RBC Distribution Width CV 11.5 % (11.6-14.6); RBC Distribution Width SD 37.2 fl (35.1-43.9); Red Blood Count 4.14 M/mm3 (4.6-6.2); White Blood Count 9.1 K/mm3 (4.4-11.0)
[2022-09-15 07:19] LABS: AST(SGOT) 38 U/L (15-37); Alanine Aminotransfer ALT/SGPT 57 U/L (16-61); Albumin, Serum 2.5 g/dL (3.2-5.0); Alkaline Phosphatase 308 U/L (45-117); Anion Gap 5 (5-15); BUN 6 mg/dL (7-18); BUN/Creat Ratio 8.9 RATIO (10-20); Bilirubin, Direct 0.17 mg/dL (0.00-0.30); Calcium,Total 8.4 mg/dL (8.5-10.1); Chloride 110 mmol/L (98-107); Creatinine, Serum 0.67 mg/dL (0.70-1.30); EST Glomerular Filtration Rate 126 mL/min (>60); Est Glom Filt Rate - Afr Amer 152 mL/min (>60); Estimated Creatinine Clearance 107.76 ml/min; Globulin 4.5 g/dL (2.2-4.2); Glucose 120 mg/dL (74-106); Potassium 4.2 mmol/L (3.5-5.1); Sodium Level 135 mmol/L (136-145)
[2022-09-15] MEDS: Creon 24,000 unit DR Capsule 1 CAP PO ×3 (08:23→16:39)
[2022-09-15] MEDS: Multivitamins,Therapeutic Tablet 1 TABLET PO (08:23)
[2022-09-15] MEDS: amLODIPine 5 MG Tablet PO (09:39)
[2022-09-15] MEDS: oxyCODONE HCl Cr 10 MG Tablet 20 MG PO ×2 (09:39→21:35)
[2022-09-15] MEDS: Escitalopram Oxalate 10 MG Tablet PO (09:39)
[2022-09-15] MEDS: Pantoprazole Sodium 40 MG Tablet PO ×2 (09:39→21:36)
[2022-09-15] MEDS: 0.9% Saline Lock 10 ML Syringe IV (11:57)
--- NOTE | 2022-09-15 12:54 | PN.HOSP_ITS ---
Subjective Subjective Follow-up for acute recurrent pancreatitis. Objective Data Objective Data Vital Signs: Vital Signs Temp Pulse Resp BP Pulse Ox O2 Del Method 98.0 F 78 18 127/71 H 98 Room Air 09/15/22 09:23 09/15/22 09:23 09/15/22 09:23 09/15/22 09:23 09/15/22 09:23 09/15/22 10:00 Oxygen Delivery Method Room Air Weight: 182 lb 0.006 oz Body Mass Index (BMI) 27.6 Intake & Output: Intake and Output for Last 24 Hours 09/13/22 09/14/22 09/15/22 23:59 23:59 23:59 Intake Total 6102.0 / 6102.0 6222.42 / 6462.42 3870.17 / 3870.17 Balance 6102.0 / 6102.0 6222.42 / 6462.42 3870.17 / 3870.17 Lab / Micro Data Result Diagrams: 09/15/22 06:00 09/15/22 06:00 Labs: Laboratory Results - last 24 hr 09/15/22 06:00: WBC 9.1, RBC 4.14 L, Hgb 12.7 L, Hct 36.3 L, MCV 87.7, MCH 30.7, MCHC 35.0, RDW Std Deviation 37.2, RDW Coeff of Linsey 11.5 L, Plt Count 321, MPV 9.1, Immature Gran % (Auto) 0.400, Neut % (Auto) 75.8 H, Lymph % (Auto) 13.7 L, Mckenzie % (Auto) 9.9, Eos % (Auto) 0.1, Baso % (Auto) 0.1, Absolute Neuts (auto) 6.9, Absolute Lymphs (auto) 1.24, Nucleated RBC % 0 09/15/22 06:00: Sodium 135 L, Potassium 4.2, Chloride 110 H, Carbon Dioxide 20.0 L, Anion Gap 5, BUN 6 L, Creatinine 0.67 L, Estim Creat Clear Calc 107.76, Est GFR (MDRD) Af Amer 152, Est GFR (MDRD) Non-Af 126, BUN/Creatinine Ratio 8.9 L, Glucose 120 H, Calcium 8.4 L, Total Bilirubin 0.60, Direct Bilirubin 0.17, AST 38 H, ALT 57, Alkaline Phosphatase 308 H, Total Protein 7.0, Albumin 2.5 L, Globulin 4.5 H Micro: Microbiology 09/14/22 12:50 Drainage Tube Gram Stain - Final Physical Exam Narrative Seen and examined. No fever. No tachycardia. BP normal. Patient abdominal pain has improved but he still feels moderate pain. He does not feel back pain or right upper quadrant pain. Physical exam General: Alert, Oriented x3, Cooperative HEENT: Atraumatic, PERRLA, EOMI, Normocephalic Oral: Oral mucosa moist.? No Gingival or Mucosal Lesions/ Ulcerations Neck: Supple, No JVD, Negative Carotid Bruits Lungs:? Air entry equal in bilateral lung bases.? No crepitation/rhonchi Cardiovascular: Regular rate, Regular Rhythm, Normal S1, Normal S2, No murmurs Abdomen: Mild tenderness present over epigastric and right upper quadrant region.?No guarding/rigidity.? Bowel sounds sluggish.? No palpable mass. : No renal angle tenderness.? No suprapubic tenderness. Extremities: No edema, Capillary Refill Less than 3 Seconds Skin: No rashes, No breakdown Musculoskeletal: No Tenderness to Palpation of Joints or Extremities Neurological: Cranial nerves II-XII grossly intact, DTR? 2+/4 and Symmetrical, Neuro grossly intact Psych/Mental Status: Normal Affect, Appropriate. Assessment & Plan Assessment/Plan (1) Acute pancreatitis: PLAN: Plan 62-year-old male with past medical history of biliary duct strictures status post ERCP with sphincterotomy, common bile dilatation and 1 stent placed into the common bile duct on 08/20/22.? Patient presented again with 5 days of abdominal pain and biliary regurgitation but no vomiting today. 1.? Acute abdominal pain due to acute biliary pancreatitis status post surgical biliary stricture and stent placement: Patient is being admitted on [facility] fl oor.? Mild leukocytosis.? Lipase 100.? ALT 90, AST 34, and phosphorus 314.? Total bili normal.? GI is consulted.? MRCP ordered.? I do not think patient needs antibiotic.? ? CT abdomen pelvis with contrast was done which shows diffuse enlargement of the head of pancreas with peripancreatic inflammatory changes, progressed since previous study.? Several tiny cystic changes seen in head of pancreas.? Pain control.? As per CT abdomen and Friend impression, biliary stent has not migrated and may be surrounding inflammation causing pain.? Patient is on muscle relaxant and pain medication.? Continue pancreatic enzyme supplement. 09/13: Patient had MRI/MRCP which shows mild dilatation of common hepatic duct with peripancreatic inflammatory changes.? Cystic changes in the head of pancreas.? Patient still NPO.? On IV fluid normal saline 250 mill per hour.? Labs for IgG4, PHYLICIA, gammaglobulin ordered to rule out autoimmune pancreatitis.? Patient also has smoking marijuana which might be risk factor for recurrent pancreatitis.? Advised quitting marijuana or substance use in any form.? On PPI and Reglan.? Leukocytosis slightly decreased.? No fever.? Patient on empiric IV Zosyn by GI 09/14: No fever. Abdominal pain better with no radiation to RUQ/back. Plan for ERCP today. Ne 09/15: Patient had ER PCP on 09/14. Patient had pancreatic stent removed. Middle third CBD stricture but upper one third dilated. Diet advanced to full liquid 2.? Hypertension: Patient on amlodipine continued.? Patient had hypertensive urgency during previous admission.? Current blood pressure is 131/85. 09/13: Blood pressure is controlled 09/14: Blood pressure normal. 3.? History of cholecystectomy and surgical biliary stricture in [address] [facility]. 4.? Mild anxiety: Patient on escitalopram. VTE prophylaxis moderate risk: Lovenox 40 mg subcu daily. 09/14: GI discontinue Lovenox as patient has risk for converting in edematous pancreatitis to hemorrhagic hepatitis. Bilateral SCDs Charges/Coding Visit Charges Inpatient E&M: 21821 Subs Hosp L2
--- NOTE | 2022-09-15 16:53 | PN_ITS ---
Subjective Subjective Patient states his abdominal pain is still about a 6 out of 10. He denies any nausea. He denies any chest pain or shortness of breath. Objective Data Objective Data Vital Signs: Vital Signs Temp Pulse Resp BP Pulse Ox O2 Del Method 98.3 F 76 16 145/93 H 97 Room Air 09/15/22 14:30 09/15/22 14:30 09/15/22 14:30 09/15/22 14:30 09/15/22 14:30 09/15/22 14:30 Oxygen Delivery Method Room Air Weight: 182 lb 0.006 oz Body Mass Index (BMI) 27.6 Intake & Output: Intake and Output for Last 24 Hours 09/13/22 09/14/22 09/15/22 23:59 23:59 23:59 Intake Total 6102.0 / 6102.0 6222.42 / 6462.42 5081.00 / 5081.00 Balance 6102.0 / 6102.0 6222.42 / 6462.42 5081.00 / 5081.00 Lab / Micro Data Result Diagrams: 09/15/22 06:00 09/15/22 06:00 Labs: Laboratory Results - last 24 hr 09/15/22 06:00: WBC 9.1, RBC 4.14 L, Hgb 12.7 L, Hct 36.3 L, MCV 87.7, MCH 30.7, MCHC 35.0, RDW Std Deviation 37.2, RDW Coeff of Linsey 11.5 L, Plt Count 321, MPV 9.1, Immature Gran % (Auto) 0.400, Neut % (Auto) 75.8 H, Lymph % (Auto) 13.7 L, Brantley % (Auto) 9.9, Eos % (Auto) 0.1, Baso % (Auto) 0.1, Absolute Neuts (auto) 6.9, Absolute Lymphs (auto) 1.24, Nucleated RBC % 0 09/15/22 06:00: Sodium 135 L, Potassium 4.2, Chloride 110 H, Carbon Dioxide 20.0 L, Anion Gap 5, BUN 6 L, Creatinine 0.67 L, Estim Creat Clear Calc 107.76, Est GFR (MDRD) Af Amer 152, Est GFR (MDRD) Non-Af 126, BUN/Creatinine Ratio 8.9 L, Glucose 120 H, Calcium 8.4 L, Total Bilirubin 0.60, Direct Bilirubin 0.17, AST 38 H, ALT 57, Alkaline Phosphatase 308 H, Total Protein 7.0, Albumin 2.5 L, Globulin 4.5 H Micro: Microbiology 09/14/22 12:50 Drainage Tube Gram Stain - Final Physical Exam Narrative Seen and examined. No fever. No tachycardia. BP normal. Patient abdominal pain has improved but he still feels moderate pain. He does not feel back pain or right upper quadrant pain. Physical exam General: Alert, Oriented x3, Cooperative HEENT: Atraumatic, PERRLA, EOMI, Normocephalic Oral: Oral mucosa moist.? No Gingival or Mucosal Lesions/ Ulcerations Neck: Supple, No JVD, Negative Carotid Bruits Lungs:? Air entry equal in bilateral lung bases.? No crepitation/rhonchi Cardiovascular: Regular rate, Regular Rhythm, Normal S1, Normal S2, No murmurs Abdomen: Mild tenderness present over epigastric and right upper quadrant region.?No guarding/rigidity.? Bowel sounds sluggish.? No palpable mass. : No renal angle tenderness.? No suprapubic tenderness. Extremities: No edema, Capillary Refill Less than 3 Seconds Skin: No rashes, No breakdown Musculoskeletal: No Tenderness to Palpation of Joints or Extremities Neurological: Cranial nerves II-XII grossly intact, DTR? 2+/4 and Symmetrical, Neuro grossly intact Psych/Mental Status: Normal Affect, Appropriate. Assessment & Plan Assessment/Plan (1) Abdominal pain: PLAN: Abdominal pain secondary to acute pancreatitis and gastritis that was seen on his imaging. He also had duodenitis associated with his pancreatitis that was seen on ERCP. He is on pain medicines, PPI therapy and medicine that is scheduled to prevent nausea that would be associated with mechanical gastroparesis associated with pancreatitis and ileus associated pancreatitis. (2) Acute pancreatitis: PLAN: Acute pancreatitis from unknown etiology at this time.? I suspect this is a combination of things secondary to possibly migrated stent, recent alcohol usage, chronic marijuana usage.? His ESR and CRP is still really elevated.? I will recheck today. His white blood cell count is improving.? Continue IV fluids at current rate. Charges/Coding Visit Charges Inpatient E&M: 48669 Subs Hosp L3
[2022-09-15 17:40] LABS: Erythrocyte Sedimentation Rate 61 mm/hr (0-20)
[2022-09-15 18:43] LABS: Anti-Mitochondrial AB <20.0 Units (0.0-20.0); Anti-Smooth Muscle ABS 8 Units (0-19); Anti-dsDNA Ab 1 IU/mL (0-9)
[2022-09-15 19:10] LABS: Carbohydrate AG 19-9 4 U/mL (0-35)
[2022-09-16] MEDS: 0.9% Normal Saline 1,000 ML 250 ML IV ×7 (00:09→21:54)
[2022-09-16 02:53] VITALS: BP 133/82; PULSE 66; RESP 16; TEMP 36.9; O2SAT 98
[2022-09-16 06:05] LABS: Absolute Lymphocyte Count 2.16 X10^3/uL (0.83-4.51); Absolute Neutrophil Count 6.7 X10^3/uL (2.0-7.7); Basophil# 0.05 X10^3/uL; Basophil% 0.5 % (0-1); Eosinophil# 0.25 X10^3/uL; Eosinophils% 2.5 % (0-5); Hematocrit 40.7 % (40-54); Hemoglobin 13.9 g/dL (13.0-16.5); Lymphocyte # 2.16 X10^3/ul (0.83-4.51); Lymphocyte % 21.3 % (19-41); Mean Corp Hgb Conc 34.2 g/dL (32-36); Mean Corpuscular Hgb 30.2 pg (27.0-32.0); Mean Corpuscular Volume 88.5 fL (80-94); Mean Platelet Vol. 8.5 fl (6.2-12.0); Monocyte# 0.88 X10^3/uL; Monocyte% 8.7 % (0-10); NRBC Flagged by Analyzer 0 % (0-5); Neutrophil # 6.74 X10^3/uL (2.7-7.7); Neutrophil % 66.3 % (47-70); Platelet Count 368 K/mm3 (150-450); RBC Distribution Width CV 11.8 % (11.6-14.6); RBC Distribution Width SD 37.3 fl (35.1-43.9); White Blood Count 10.2 K/mm3 (4.4-11.0)
[2022-09-16 06:29] LABS: ALB/GLOB Ratio 0.7 RATIO (0.9-2.4); AST(SGOT) 24 U/L (15-37); Alanine Aminotransfer ALT/SGPT 57 U/L (16-61); Albumin, Serum 3.1 g/dL (3.2-5.0); Alkaline Phosphatase 290 U/L (45-117); Anion Gap 6 (5-15); BUN 5 mg/dL (7-18); BUN/Creat Ratio 6.1 RATIO (10-20); Calcium,Total 8.4 mg/dL (8.5-10.1); Chloride 106 mmol/L (98-107); Creatinine, Serum 0.82 mg/dL (0.70-1.30); EST Glomerular Filtration Rate 101 mL/min (>60); Est Glom Filt Rate - Afr Amer 122 mL/min (>60); Estimated Creatinine Clearance 88.05 ml/min; Globulin 4.2 g/dL (2.2-4.2); Glucose 89 mg/dL (74-106); Potassium 3.4 mmol/L (3.5-5.1); Protein, Total 7.3 g/dL (6.4-8.2); Sodium Level 140 mmol/L (136-145)
--- NOTE | 2022-09-16 07:15 | DCINST_ITS ---
Discharge Instructions Diet Discharge Diet: Low fat / Low cholesterol Activity Discharge Activity: Return to Normal Activity Dressing / Incision Call your doctor if you observe: Fever of 101 or Higher, Change in Color and Fainting spells Follow Up Care Test Results: Test results from this visit will be discussed in further detail at your follow- up appointment, if applicable. Discharge Plan Admission Admit Date/Time: 09/12/22 13:03 Attending Provider: Edson Velazquez Primary Care Provider: Alex Ji Discharge Orders/Prescriptions Prescriptions: No Action tizanidine 4 mg capsule 4 mg PO Q8H PRN (Reason: Spasms) Creon 24,000-76,000 -120,000 unit capsule,delayed release(DR/EC) 1 cap PO TID Qty: 90 0RF Rx Instructions: administer with meals and/or snacks cyclobenzaprine 10 mg Tablet 10 mg PO Q8H PRN (Reason: MUSCLE SPASMS) escitalopram oxalate 10 mg Tablet 10 mg PO DAILY magnesium 200 mg Tablet 200 - 400 mg PO DAILY multivitamin Tablet 1 tab PO DAILY L-Arginine(alpha-ketoglutarat) 350 mg Tablet Extended Release 350 - 700 mg PO DAILY polyethylene glycol 3350 [Miralax] 17 gram/dose Powder 17 g PO DAILY PRN (Reason: Constipation) diphenhydramine-acetaminophen [Tylenol PM Extra Strength] 25-500 mg Tablet 2 tab PO QHS PRN (Reason: Pain) melatonin 12 mg Tablet 12 mg PO QHS PRN (Reason: Sleep) amlodipine 5 mg tablet 5 mg PO DAILY pantoprazole [Protonix] 40 mg tablet,delayed release (DR/EC) 40 mg PO BID Referrals / Follow Up: Alex Ji MD [Primary Care Provider] -
[2022-09-16] MEDS: Potassium Chloride Oral Tablet 20 MEQ 40 MEQ PO ×2 (08:03→11:06)
[2022-09-16] MEDS: Pantoprazole Sodium 40 MG Tablet PO ×2 (08:03→21:51)
[2022-09-16] MEDS: Creon 24,000 unit DR Capsule 1 CAP PO ×3 (08:03→16:57)
[2022-09-16] MEDS: amLODIPine 5 MG Tablet PO (08:03)
[2022-09-16] MEDS: Multivitamins,Therapeutic Tablet 1 TABLET PO (08:03)
[2022-09-16] MEDS: Escitalopram Oxalate 10 MG Tablet PO (08:04)
[2022-09-16 09:00] VITALS: BP 154/90; PULSE 63; RESP 18; TEMP 36.5; O2SAT 100
[2022-09-16] MEDS: Ensure Clear 120 ML Liquid PO ×2 (09:49→16:57)
[2022-09-16] MEDS: oxyCODONE HCl Cr 10 MG Tablet 20 MG PO ×2 (09:49→21:51)
[2022-09-16] MEDS: Metoclopramide 10 MG/2 ML Vial 5 MG IV ×2 (09:50→16:57)
--- NOTE | 2022-09-16 11:31 | PCM.PN.HOSP ---
Subjective Subjective Follow-up for acute recurrent pancreatitis. ESR and CRP still elevated. Patient tolerated full liquid diet. Diet changed to soft bland diet. Objective Data Objective Data Vital Signs: Vital Signs Temp Pulse Resp BP Pulse Ox O2 Del Method 97.7 F L 63 18 154/90 H 100 Room Air 09/16/22 09:00 09/16/22 09:00 09/16/22 09:00 09/16/22 09:00 09/16/22 09:00 09/16/22 09:00 Oxygen Delivery Method Room Air Weight: 182 lb 0.006 oz Body Mass Index (BMI) 27.6 Intake & Output: Intake and Output for Last 24 Hours 09/14/22 09/15/22 09/16/22 23:59 23:59 22:59 Intake Total 6222.42 / 6462.42 6431.00 / 6431.00 4354.17 / 4354.17 Balance 6222.42 / 6462.42 6431.00 / 6431.00 4354.17 / 4354.17 Lab / Micro Data Result Diagrams: 09/16/22 05:15 09/16/22 05:15 Labs: Laboratory Results - last 24 hr 09/13/22 05:35: CA 19-9 Antigen 4 09/13/22 07:37: ANNEL-1 Antibody <0.2, SS-A/Ro IgG Antibody < 0.2, SS-B/La IgG Antibody < 0.2, Sm (Danielson) Antibody <0.2, INFECTION CONTROL PREVENTIONIST Antibody <0.2, Scl-70 Scleroderma Ab <0.2, Double Strand DNA Ab 1, Centromere B Antibody <0.2, Anti-Mitochondrial Ab <20.0 09/13/22 07:37: Anti-Smooth Muscle Ab 8 09/15/22 06:00: ESR 61 H 09/15/22 06:00: C-React Prot Ext Range 92.00 H 09/16/22 05:15: WBC 10.2, RBC 4.60, Hgb 13.9, Hct 40.7, MCV 88.5, MCH 30.2, MCHC 34.2, RDW Std Deviation 37.3, RDW Coeff of Linsey 11.8, Plt Count 368, MPV 8.5, Immature Gran % (Auto) 0.700, Neut % (Auto) 66.3, Lymph % (Auto) 21.3, Bingham % (Auto) 8.7, Eos % (Auto) 2.5, Baso % (Auto) 0.5, Absolute Neuts (auto) 6.7, Absolute Lymphs (auto) 2.16, Nucleated RBC % 0 09/16/22 05:15: Sodium 140, Potassium 3.4 L, Chloride 106, Carbon Dioxide 28.0, Anion Gap 6, BUN 5 L, Creatinine 0.82, Estim Creat Clear Calc 88.05, Est GFR (MDRD) Af Amer 122, Est GFR (MDRD) Non-Af 101, BUN/Creatinine Ratio 6.1 L, Glucose 89, Calcium 8.4 L, Total Bilirubin 0.40, AST 24, ALT 57, Alkaline Phosphatase 290 H, Total Protein 7.3, Albumin 3.1 L, Globulin 4.2, Albumin/Globulin Ratio 0.7 L Micro: Microbiology 09/14/22 12:50 Drainage Tube Gram Stain - Final 09/14/22 12:50 Drainage Tube Wound Culture - Preliminary GNR lactose rice farmer GPC Poss Enterococcus sp Physical Exam Narrative Seen and examined. No fever. No tachycardia. BP normal. Improvement in leukocytosis. Patient abdominal pain has improved but he still feels moderate pain. He does not feel back pain or right upper quadrant pain. Physical exam General: Alert, Oriented x3, Cooperative HEENT: Atraumatic, PERRLA, EOMI, Normocephalic Oral: Oral mucosa moist.? No Gingival or Mucosal Lesions/ Ulcerations Neck: Supple, No JVD, Negative Carotid Bruits Lungs:? Air entry equal in bilateral lung bases.? No crepitation/rhonchi Cardiovascular: Regular rate, Regular Rhythm, Normal S1, Normal S2, No murmurs Abdomen: Mild tenderness present over epigastric and right upper quadrant region.?No guarding/rigidity.? Bowel sounds sluggish.? No palpable mass. : No renal angle tenderness.? No suprapubic tenderness. Extremities: No edema, Capillary Refill Less than 3 Seconds Skin: No rashes, No breakdown Musculoskeletal: No Tenderness to Palpation of Joints or Extremities Neurological: Cranial nerves II-XII grossly intact, DTR? 2+/4 and Symmetrical, Neuro grossly intact Psych/Mental Status: Normal Affect, Appropriate. Assessment & Plan Assessment/Plan (1) Acute pancreatitis: PLAN: Plan 62-year-old male with past medical history of biliary duct strictures status post ERCP with sphincterotomy, common bile dilatation and 1 stent placed into the common bile duct on 08/20/22.? Patient presented again with 5 days of abdominal pain and biliary regurgitation but no vomiting today. 1.? Acute abdominal pain due to acute biliary pancreatitis status post surgical biliary stricture and stent placement: Patient is being admitted on [facility] floor.? Mild leukocytosis.? Lipase 100.? ALT 90, AST 34, and phosphorus 314.? Total bili normal.? GI is consulted.? MRCP ordered.? I do not think patient needs antibiotic.? ? CT abdomen pelvis with contrast was done which shows diffuse enlargement of the head of pancreas with peripancreatic inflammatory changes, progressed since previous study.? Several tiny cystic changes seen in head of pancreas.? Pain control.? As per CT abdomen and Dr. Novak impression, biliary stent has not migrated and may be surrounding inflammation causing pain.? Patient is on muscle relaxant and pain medication.? Continue pancreatic enzyme supplement. 09/13: Patient had MRI/MRCP which shows mild dilatation of common hepatic duct with peripancreatic inflammatory changes.? Cystic changes in the head of pancreas.? Patient still NPO.? On IV fluid normal saline 250 mill per hour.? Labs for IgG4, PHYLICIA, gammaglobulin ordered to rule out autoimmune pancreatitis.? Patient also has smoking marijuana which might be risk factor for recurrent pancreatitis.? Advised quitting marijuana or substance use in any form.? On PPI and Reglan.? Leukocytosis slightly decreased.? No fever.? Patient on empiric IV Zosyn by GI 09/14: No fever. Abdominal pain better with no radiation to RUQ/back. Plan for ERCP today. Ne 09/15: Patient had ER PCP on 09/14. Patient had pancreatic stent removed. Middle third CBD stricture but upper one third dilated. Diet advanced to full liquid 09/16: ESR and CRP still elevated not much change from the first day. Diet advanced to soft bland diet. Discussed with project technician and he wants him to patient to stay as he has frequent admission for exacerbation of acute pancreatitis and expecting slow recovery. He will follow him tomorrow. 2.? Hypertension: Patient on amlodipine continued.? Patient had hypertensive urgency during previous admission.? Current blood pressure is 131/85. 09/13: Blood pressure is controlled 09/14: Blood pressure normal. 3.? History of cholecystectomy and surgical biliary stricture in 2018 on admission in [facility]. 4.? Mild anxiety: Patient on escitalopram. VTE prophylaxis moderate risk: Lovenox 40 mg subcu daily. 09/14: GI discontinue Lovenox as patient has risk for converting in edematous pancreatitis to hemorrhagic hepatitis. Bilateral SCDs Charges/Coding Visit Charges Inpatient E&M: 23868 Subs Hosp L2
[2022-09-16 15:00] VITALS: BP 127/89; PULSE 70; RESP 18; TEMP 36.4; O2SAT 100
[2022-09-16 21:00] VITALS: BP 152/89; PULSE 77; RESP 16; TEMP 36.6; O2SAT 98
[2022-09-16 21:46] VITALS: BP 152/89; PULSE 77; RESP 16; TEMP 36.6; O2SAT 98
[2022-09-17] MEDS: 0.9% Normal Saline 1,000 ML 250 ML IV ×5 (02:08→20:23)
[2022-09-17 02:11] VITALS: BP 135/92; PULSE 81; RESP 18; TEMP 36.4; O2SAT 96
[2022-09-17 02:12] VITALS: BP 135/92; PULSE 81; RESP 18; TEMP 36.4; O2SAT 96
[2022-09-17 06:04] LABS: Absolute Lymphocyte Count 2.17 X10^3/uL (0.83-4.51); Absolute Neutrophil Count 7.5 X10^3/uL (2.0-7.7); Basophil# 0.06 X10^3/uL; Basophil% 0.5 % (0-1); Eosinophil# 0.29 X10^3/uL; Eosinophils% 2.5 % (0-5); Hematocrit 40.1 % (40-54); Hemoglobin 14.3 g/dL (13.0-16.5); Lymphocyte # 2.17 X10^3/ul (0.83-4.51); Mean Corp Hgb Conc 35.7 g/dL (32-36); Mean Corpuscular Hgb 31.4 pg (27.0-32.0); Mean Corpuscular Volume 88.1 fL (80-94); Mean Platelet Vol. 8.5 fl (6.2-12.0); Monocyte# 1.31 X10^3/uL; Monocyte% 11.5 % (0-10); NRBC Flagged by Analyzer 0 % (0-5); Neutrophil # 7.54 X10^3/uL (2.7-7.7); Neutrophil % 65.9 % (47-70); Platelet Count 351 K/mm3 (150-450); RBC Distribution Width CV 11.9 % (11.6-14.6); RBC Distribution Width SD 38.2 fl (35.1-43.9); Red Blood Count 4.55 M/mm3 (4.6-6.2); White Blood Count 11.4 K/mm3 (4.4-11.0)
[2022-09-17] MEDS: Metoclopramide 10 MG/2 ML Vial 5 MG IV ×3 (06:25→16:22)
[2022-09-17 06:36] LABS: ALB/GLOB Ratio 0.8 RATIO (0.9-2.4); AST(SGOT) 16 U/L (15-37); Alanine Aminotransfer ALT/SGPT 47 U/L (16-61); Albumin, Serum 3.1 g/dL (3.2-5.0); Alkaline Phosphatase 259 U/L (45-117); Anion Gap 8 (5-15); BUN 8 mg/dL (7-18); BUN/Creat Ratio 8.9 RATIO (10-20); Calcium,Total 8.6 mg/dL (8.5-10.1); Chloride 101 mmol/L (98-107); EST Glomerular Filtration Rate 91 mL/min (>60); Est Glom Filt Rate - Afr Amer 110 mL/min (>60); Estimated Creatinine Clearance 80.22 ml/min; Glucose 89 mg/dL (74-106); Potassium 3.5 mmol/L (3.5-5.1); Protein, Total 7.1 g/dL (6.4-8.2); Sodium Level 137 mmol/L (136-145)
--- NOTE | 2022-09-17 08:07 | CT_ITS ---
STUDY: CT ABDOMEN AND PELVIS WITH CONTRAST REASON FOR EXAM: Male, 62 years old. Pancreatitis. Biliary stricture with stent placement. RADIATION DOSAGE (If Supplied By Facility): CTDIvol = ( 15.61 ) mGy, DLP = ( 931.36 ) mGycm TECHNIQUE: Transaxial images were obtained from the dome of the diaphragm to the symphysis pubis without oral contrast. IV 100mL Isovue-300 was administered. Sagittal and coronal images were reconstructed. Individualized dose optimization techniques were used for this CT. COMPARISON: Comparison is made with prior study dated 09/12/2022. FINDINGS: The visualized lung bases are unremarkable. The visualized portions of the heart are within normal limits. There is decreased attenuation of the liver consistent with steatosis. Mild hepatomegaly. There are surgical clips in the gallbladder fossa consistent with a prior cholecystectomy. Normal spleen. Persistent diffuse enlargement of the head of the pancreas with persistent increased markings in the surrounding pancreatic fat. The pancreatic head size has decreased. Previously seen biliary stent has been removed. Normal bilateral adrenal glands. Normal right kidney. Normal left kidney. Normal visualized stomach. Normal small intestine. Normal colon. The appendix is visualized and appears normal. Normal abdominal aorta. Normal inferior vena cava. There is borderline retroperitoneal lymphadenopathy with enlarged nodes no greater than 10mm in the short axis diameter. Mild degree of diffuse bladder wall thickening. Stable small bilateral inguinal areas containing fat. There are degenerative changes of the visualized lumbar spine. CT/Abdomen/Pelvis W IV Cont ONLY IMPRESSION: Persistent inflammatory changes in the region of the head of the pancreas with enlargement of the head although there has been improvement as compared to prior study. Electronically Signed: Son Chapman MD at 10:40 EST ,
[2022-09-17] MEDS: Creon 24,000 unit DR Capsule 1 CAP PO ×3 (08:09→16:22)
[2022-09-17] MEDS: amLODIPine 5 MG Tablet PO (08:09)
[2022-09-17] MEDS: Multivitamins,Therapeutic Tablet 1 TABLET PO (08:09)
[2022-09-17] MEDS: Pantoprazole Sodium 40 MG Tablet PO ×2 (08:09→21:19)
[2022-09-17] MEDS: Ensure Clear 120 ML Liquid PO ×3 (08:09→16:22)
[2022-09-17] MEDS: Escitalopram Oxalate 10 MG Tablet PO (08:09)
[2022-09-17 08:11] VITALS: BP 174/102; PULSE 77; RESP 18; TEMP 36.9; O2SAT 98
[2022-09-17 08:56] LABS: Erythrocyte Sedimentation Rate 51 mm/hr (0-20)
[2022-09-17 09:00] VITALS: BP 174/102; PULSE 77; RESP 18; TEMP 36.9; O2SAT 98
--- NOTE | 2022-09-17 09:59 | PN_ITS ---
Subjective Subjective Patient is feeling a little bit better today. He still says his pain is of 6 out of 10. He had 1 bowel movement. He has been on a clear liquid diet and it was mildly advanced to full liquids. He is afebrile. His blood pressure has been elevated. Objective Data Objective Data Vital Signs: Vital Signs Temp Pulse Resp BP Pulse Ox O2 Del Method 98.5 F 77 18 174/102 H 98 Room Air 09/17/22 09:00 09/17/22 09:00 09/17/22 09:00 09/17/22 09:00 09/17/22 09:00 09/17/22 09:00 Oxygen Delivery Method Room Air Weight: 182 lb 0.006 oz Body Mass Index (BMI) 27.6 Intake & Output: Intake and Output for Last 24 Hours 09/16/22 09/16/22 09/17/22 00:59 23:59 23:59 Intake Total 2049 Balance 2049 Lab / Micro Data Result Diagrams: 09/17/22 04:24 09/17/22 04:24 Labs: Laboratory Results - last 24 hr 09/17/22 04:24: WBC 11.4 H, RBC 4.55 L, Hgb 14.3, Hct 40.1, MCV 88.1, MCH 31.4, MCHC 35.7, RDW Std Deviation 38.2, RDW Coeff of Linsey 11.9, Plt Count 351, MPV 8.5, Immature Gran % (Auto) 0.600, Neut % (Auto) 65.9, Lymph % (Auto) 19.0, [place] % (Auto) 11.5 H, Eos % (Auto) 2.5, Baso % (Auto) 0.5, Absolute Neuts (auto) 7.5, Absolute Lymphs (auto) 2.17, Nucleated RBC % 0 09/17/22 04:24: Sodium 137, Potassium 3.5, Chloride 101, Carbon Dioxide 28.0, Anion Gap 8, BUN 8, Creatinine 0.90, Estim Creat Clear Calc 80.22, Est GFR (MDRD) Af Amer 110, Est GFR (MDRD) Non-Af 91, BUN/Creatinine Ratio 8.9 L, Glucose 89, Calcium 8.6, Total Bilirubin 0.40, AST 16, ALT 47, Alkaline Phosphatase 259 H, Total Protein 7.1, Albumin 3.1 L, Globulin 4.0, Albumin/Glob ulin Ratio 0.8 L 09/17/22 04:24: ESR 51 H 09/17/22 04:24: C-React Prot Ext Range 38.10 H Micro: Microbiology 09/14/22 12:50 Drainage Tube Gram Stain - Final 09/14/22 12:50 Drainage Tube Wound Culture - Preliminary GNR lactose sewer contractor GPC Poss Enterococcus sp Radiography Diagnostic Testing: Radiology Impression Endo Retro Cholangiopancreatogram 09/14/22 12:00 IMPRESSION: ERCP. Opacification of the intrahepatic biliary ducts and common bile duct. Electronically Signed: Son Chapman MD at 8:08 EST , Physical Exam Narrative Seen and examined. No fever. No tachycardia. BP normal. Improvement in leukocytosis. Patient abdominal pain has improved but he still feels moderate pain. He does not feel back pain or right upper quadrant pain. Physical exam General: Alert, Oriented x3, Cooperative HEENT: Atraumatic, PERRLA, EOMI, Normocephalic Oral: Oral mucosa moist.? No Gingival or Mucosal Lesions/ Ulcerations Neck: Supple, No JVD, Negative Carotid Bruits Lungs:? Air entry equal in bilateral lung bases.? No crepitation/rhonchi Cardiovascular: Regular rate, Regular Rhythm, Normal S1, Normal S2, No murmurs Abdomen: Mild tenderness present over epigastric and right upper quadrant region.?No guarding/rigidity.? Bowel sounds sluggish.? No palpable mass. : No renal angle tenderness.? No suprapubic tenderness. Extremities: No edema, Capillary Refill Less than 3 Seconds Skin: No rashes, No breakdown Musculoskeletal: No Tenderness to Palpation of Joints or Extremities Neurological: Cranial nerves II-XII grossly intact, DTR? 2+/4 and Symmetrical, Neuro grossly intact Psych/Mental Status: Normal Affect, Appropriate. Assessment & Plan Assessment/Plan (1) Abdominal pain: PLAN: Abdominal pain secondary to gastritis and duodenitis associated with pancreatitis. His pain is getting little bit better. His blood pressure has been elevated which makes me think that the pain medicine is wearing off. Recommend to continue PPI therapy and schedule pain medicine (2) Acute pancreatitis: Charges/Coding Visit Charges Inpatient E&M: 97682 Subs Hosp L2
[2022-09-17] MEDS: oxyCODONE HCl Cr 10 MG Tablet 20 MG PO ×2 (10:37→21:19)
[2022-09-17 15:00] VITALS: BP 143/87; PULSE 102; RESP 18; TEMP 36.5; O2SAT 99
--- NOTE | 2022-09-17 15:05 | CHAPLAIN ---
Type of Pastoral Visit ___ Initial Visit _x__ Follow-up Visit ___ On-call Visit ___ General Patient Visit ___ Spiritual Assessment ___ Family Conference ___ Bereavement ___ Rapid Response ___ Code Blue ___ Other (describe below) Pastoral Care Referral From _x__ Patient ___ Family ___ Nurse ___ Physician ___ Sales Service Executive ___ Oem Sales Manager ___ Other (describe below) Sacrament/Intervention _x__ Active listening ___ Anointing ___ Mu-Ism ___ Bereavement ___ Communion ___ Shaylee exploration ___ _x__ Life review _x__ Prayer ___ Reconciliation ___ Sacrament of Sick _x__ Supportive presence ___ Wedding ___ Other (describe below) Pastoral Comments patient is available and in the room this time; pt is waiting for more information before being discharged hopefully; pt acknowledges that he is feeling much better since procedure and that he credits Dr. Novak for exploring his situation and finding what could be done to help him; pt admits to some hope for the future; sister of pt is with him; pt is more relaxed and welcomes a prayer at this time
--- NOTE | 2022-09-17 19:29 | PN.HOSP_ITS ---
Subjective Subjective Patient was seen and examined today, I talked with gastroenterology about his care, gastroenterology feels that the patient needs continued IV fluid administration and monitored in the hospital at this time. I went over this with the patient and his . Patient states he has less abdominal pain today than yesterday and feels better. Objective Data Objective Data Vital Signs: Vital Signs Temp Pulse Resp BP Pulse Ox O2 Del Method 97.7 F L 102 H 18 143/87 H 99 Room Air 09/17/22 15:00 09/17/22 15:00 09/17/22 15:00 09/17/22 15:00 09/17/22 15:00 09/17/22 15:00 Oxygen Delivery Method Room Air Weight: 82.554 kg Body Mass Index (BMI) 27.6 Intake & Output: Intake and Output for Last 24 Hours 09/16/22 09/16/22 09/17/22 00:59 23:59 23:59 Intake Total 4871.33 / 4871.33 Balance 4871.33 / 4871.33 Lab / Micro Data Result Diagrams: 09/18/22 04:24 09/18/22 04:24 Labs: Laboratory Results - last 24 hr 09/17/22 04:24: WBC 11.4 H, RBC 4.55 L, Hgb 14.3, Hct 40.1, MCV 88.1, MCH 31.4, MCHC 35.7, RDW Std Deviation 38.2, RDW Coeff of Linsey 11.9, Plt Count 351, MPV 8.5, Immature Gran % (Auto) 0.600, Neut % (Auto) 65.9, Lymph % (Auto) 19.0, [place] % (Auto) 11.5 H, Eos % (Auto) 2.5, Baso % (Auto) 0.5, Absolute Neuts (auto) 7.5, Absolute Lymphs (auto) 2.17, Nucleated RBC % 0 09/17/22 04:24: Sodium 137, Potassium 3.5, Chloride 101, Carbon Dioxide 28.0, Anion Gap 8, BUN 8, Creatinine 0.90, Estim Creat Clear Calc 80.22, Est GFR (MD RD) Af Amer 110, Est GFR (MDRD) Non-Af 91, BUN/Creatinine Ratio 8.9 L, Glucose 89, Calcium 8.6, Total Bilirubin 0.40, AST 16, ALT 47, Alkaline Phosphatase 259 H, Total Protein 7.1, Albumin 3.1 L, Globulin 4.0, Albumin/Globulin Ratio 0.8 L 09/17/22 04:24: ESR 51 H 09/17/22 04:24: C-React Prot Ext Range 38.10 H Micro: Microbiology 09/14/22 12:50 Drainage Tube Gram Stain - Final 09/14/22 12:50 Drainage Tube Wound Culture - Preliminary GNR lactose lumpia wrapper maker GPC Poss Enterococcus sp 09/14/22 12:50 Drainage Tube Anaerobic Culture - Preliminary Radiography Diagnostic Testing: Radiology Impression Endo Retro Cholangiopancreatogram 09/14/22 12:00 IMPRESSION: ERCP. Opacification of the intrahepatic biliary ducts and common bile duct. Electronically Signed: Son Chapman MD at 8:08 EST , Abdomen/Pelvis CT 09/17/22 08:07 IMPRESSION: Persistent inflammatory changes in the region of the head of the pancreas with enlargement of the head although there has been improvement as compared to prior study. Electronically Signed: Son Chapman MD at 10:40 EST , Physical Exam Const alert, oriented x3, no apparent distress and healthy appearing General Appearance: cooperative, well kempt and well developed Orientation / Consciousness: awake, oriented to person, oriented to place and oriented to time HEENT normocephalic and moist oral mucous membranes Eyes PERRL, EOMs intact bilaterally and conjunctivae normal Neck supple, no JVD, thyroid normal and no carotid bruits General: trachea midline Resp normal respiratory effort and clear to auscultation bilaterally Auscultation: Negative for rales, rhonchi or wheezes Cardio regular rate, regular rhythm, no murmurs, no rub and no gallops GI normal to inspection, nondistended, normoactive bowel sounds, soft to palpation, non-tender and non-distended Extremity no clubbing, cyanosis or edema Skin no rashes or lesions noted General Skin Exam: no breakdown Neuro oriented x3, CN's II-XII intact bilaterally, no focal motor deficits and no sensory deficits noted Sensorium / Orientation: awake and alert Speech: speech normal Psych affect normal Assessment & Plan Assessment/Plan (1) Acute pancreatitis: PLAN: Plan 1. 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 #4 chronic depression-patient is on Lexapro #5 essential hypertension-patient is on amlodipine Charges/Coding Visit Charges Inpatient E&M: 79610 Subs Hosp L2
[2022-09-17 19:51] VITALS: BP 164/94; PULSE 92; RESP 15; TEMP 36.6; O2SAT 98
[2022-09-18] MEDS: 0.9% Normal Saline 1,000 ML 250 ML IV ×2 (00:23→04:22)
[2022-09-18 02:00] VITALS: BP 153/93; PULSE 77; RESP 14; TEMP 36.8; O2SAT 97
[2022-09-18 06:11] LABS: Absolute Lymphocyte Count 1.96 X10^3/uL (0.83-4.51); Absolute Neutrophil Count 9.9 X10^3/uL (2.0-7.7); Basophil# 0.06 X10^3/uL; Basophil% 0.4 % (0-1); Eosinophils% 2.2 % (0-5); Hematocrit 40.7 % (40-54); Hemoglobin 14.3 g/dL (13.0-16.5); Lymphocyte # 1.96 X10^3/ul (0.83-4.51); Lymphocyte % 14.5 % (19-41); Mean Corp Hgb Conc 35.1 g/dL (32-36); Mean Corpuscular Volume 88.1 fL (80-94); Mean Platelet Vol. 8.5 fl (6.2-12.0); Monocyte# 1.28 X10^3/uL; Monocyte% 9.5 % (0-10); NRBC Flagged by Analyzer 0 % (0-5); Neutrophil # 9.86 X10^3/uL (2.7-7.7); Platelet Count 374 K/mm3 (150-450); RBC Distribution Width CV 11.9 % (11.6-14.6); RBC Distribution Width SD 38.2 fl (35.1-43.9); Red Blood Count 4.62 M/mm3 (4.6-6.2); White Blood Count 13.5 K/mm3 (4.4-11.0)
[2022-09-18] MEDS: Metoclopramide 10 MG/2 ML Vial 5 MG IV (06:50)
[2022-09-18 07:09] LABS: ALB/GLOB Ratio 0.7 RATIO (0.9-2.4); AST(SGOT) 19 U/L (15-37); Alanine Aminotransfer ALT/SGPT 42 U/L (16-61); Albumin, Serum 3.1 g/dL (3.2-5.0); Alkaline Phosphatase 242 U/L (45-117); Anion Gap 6 (5-15); BUN 9 mg/dL (7-18); BUN/Creat Ratio 9.6 RATIO (10-20); Calcium,Total 8.6 mg/dL (8.5-10.1); Chloride 103 mmol/L (98-107); Creatinine, Serum 0.94 mg/dL (0.70-1.30); EST Glomerular Filtration Rate 86 mL/min (>60); Est Glom Filt Rate - Afr Amer 104 mL/min (>60); Estimated Creatinine Clearance 76.81 ml/min; Globulin 4.5 g/dL (2.2-4.2); Glucose 95 mg/dL (74-106); Potassium 3.9 mmol/L (3.5-5.1); Protein, Total 7.6 g/dL (6.4-8.2); Sodium Level 137 mmol/L (136-145)
[2022-09-18 07:40] VITALS: BP 149/95; PULSE 78; RESP 18; TEMP 36.6; O2SAT 98
[2022-09-18] MEDS: Pantoprazole Sodium 40 MG Tablet PO (07:42)
[2022-09-18] MEDS: Creon 24,000 unit DR Capsule 1 CAP PO (07:42)
[2022-09-18] MEDS: amLODIPine 5 MG Tablet PO (07:42)
[2022-09-18] MEDS: Ensure Clear 120 ML Liquid PO (07:42)
[2022-09-18] MEDS: Escitalopram Oxalate 10 MG Tablet PO (07:42)
[2022-09-18] MEDS: Multivitamins,Therapeutic Tablet 1 TABLET PO (07:42)
--- NOTE | 2022-09-18 08:00 | PCM.PROGNOTE ---
Subjective Subjective Patient stated had his abdominal pain and better. He is to his having some mild nausea but that is improved. He tolerated a regular diet. His inflammatory markers were going down but went back up today. He rates his pain at a 5 out of 10. Objective Data Objective Data Vital Signs: Vital Signs Temp Pulse Resp BP Pulse Ox O2 Del Method 98 F 78 18 149/95 H 98 Room Air 09/18/22 09:00 09/18/22 09:00 09/18/22 09:00 09/18/22 09:00 09/18/22 09:00 09/18/22 09:00 Oxygen Delivery Method Room Air Weight: 182 lb 0.006 oz Body Mass Index (BMI) 27.6 Intake & Output: Intake and Output for Last 24 Hours 09/16/22 09/17/22 09/18/22 23:59 23:59 23:59 Intake Total 5871.33 / 6271.33 3742.29 / 3742.29 Balance 5871.33 / 6271.33 3742.29 / 3742.29 Lab / Micro Data Result Diagrams: 09/18/22 04:24 09/18/22 04:24 Labs: Laboratory Results - last 24 hr 09/18/22 04:24: WBC 13.5 H, RBC 4.62, Hgb 14.3, Hct 40.7, MCV 88.1, MCH 31.0, MCHC 35.1, RDW Std Deviation 38.2, RDW Coeff of Linsey 11.9, Plt Count 374, MPV 8.5, Immature Gran % (Auto) 0.400, Neut % (Auto) 73.0 H, Lymph % (Auto) 14.5 L, [place] % (Auto) 9.5, Eos % (Auto) 2.2, Baso % (Auto) 0.4, Absolute Neuts (auto) 9.9 H, Absolute Lymphs (auto) 1.96, Nucleated RBC % 0 09/18/22 04:24: Sodium 137, Potassium 3.9, Chloride 103, Carbon Dioxide 28.0, Anion Gap 6, BUN 9, Creatinine 0.94, Estim Creat Clear Calc 76.81, Est GFR (MDRD) Af Amer 104, Est GFR (MDRD) Non-Af 86, BUN/Creatinine Ratio 9.6 L, Glucose 95, Calcium 8.6, Total Bilirubin 0.50, AST 19, ALT 42, Alkaline Phosphatase 242 H, Total Protein 7.6, Albumin 3.1 L, Globulin 4.5 H, Albumin/Globulin Ratio 0.7 L 09/18/22 04:24: ESR 51 H 09/18/22 04:24: C-React Prot Ext Range 63.10 H Micro: Microbiology 09/14/22 12:50 Drainage Tube Gram Stain - Final 09/14/22 12:50 Drainage Tube Wound Culture - Preliminary Klebsiella pneumoniae sp pneum Streptococcus gallolyticus pas Lactobacillus gasseri 09/14/22 12:50 Drainage Tube Anaerobic Culture - Final No anaerobic bacteria isolated. Physical Exam Const alert, oriented x3, no apparent distress and healthy appearing General Appearance: cooperative, well kempt and well developed Orientation / Consciousness: awake, oriented to person, oriented to place and oriented to time HEENT normocephalic and moist oral mucous membranes Eyes PERRL, EOMs intact bilaterally and conjunctivae normal Neck supple, no JVD, thyroid normal and no carotid bruits General: trachea midline Resp normal respiratory effort and clear to auscultation bilaterally Auscultation: Negative for rales, rhonchi or wheezes Cardio regular rate, regular rhythm, no murmurs, no rub and no gallops GI normal to inspection, nondistended, normoactive bowel sounds, soft to palpation, non-tender and non-distended Extremity no clubbing, cyanosis or edema Skin no rashes or lesions noted General Skin Exam: no breakdown Neuro oriented x3, CN's II-XII intact bilaterally, no focal motor deficits and no sensory deficits noted Sensorium / Orientation: awake and alert Speech: speech normal Psych affect normal Assessment & Plan Assessment/Plan (1) Abdominal pain: PLAN: Abdominal pain secondary to acute pancreatitis and gastritis that was seen on his imaging.? He also had duodenitis associated with his pancreatitis that was seen on ERCP.? He is on pain medicines, PPI therapy and medicine that is scheduled to prevent nausea that would be associated with mechanical gastroparesis associated with pancreatitis and ileus associated pancreatitis. (2) Acute pancreatitis: PLAN: Acute pancreatitis from unknown etiology at this time.? I suspect this is a combination of things secondary to possibly migrated stent, recent alcohol usage, chronic marijuana usage.? His ESR and CRP is still really elevated.? I will recheck today.? His white blood cell count is improving.? Continue IV fluids at current rate. He may be able to go home today if he is tolerating a regular diet. Charges/Coding Visit Charges Inpatient E&M: 71750 Subs Hosp L2
--- NOTE | 2022-09-18 08:16 | CASEMGMT ---
Social Work Pt does not have AD. Pt is interested in more information about these documents. SW to provide RAC card to pt and discuss. OVI Vidales
[2022-09-18 08:51] LABS: Erythrocyte Sedimentation Rate 51 mm/hr (0-20)
[2022-09-18 09:00] VITALS: BP 149/95; PULSE 78; RESP 18; TEMP 36.6; O2SAT 98
--- NOTE | 2022-09-18 09:18 | DCINST_ITS ---
Discharge Instructions Diet Discharge Diet: No restrictions Activity Discharge Activity: Return to Normal Activity Weight Bearing Status: Full weight bearing Follow Up Care Test Results: Test results from this visit will be discussed in further detail at your follow- up appointment, if applicable. Discharge Plan Admission Admit Date/Time: 09/12/22 13:03 Primary Reason for Your Visit: Acute pancreatitis Attending Provider: Lew Belle Primary Care Provider: Alex Ji Consulting Providers: Edson Velazquez Discharge Orders/Prescriptions Prescriptions: Continued tizanidine 4 mg capsule 4 mg PO Q8H PRN (Reason: Spasms) Creon 24,000-76,000 -120,000 unit capsule,delayed release(DR/EC) 1 cap PO TID Qty: 90 0RF Rx Instructions: administer with meals and/or snacks cyclobenzaprine 10 mg Tablet 10 mg PO Q8H PRN (Reason: MUSCLE SPASMS) escitalopram oxalate 10 mg Tablet 10 mg PO DAILY magnesium 200 mg Tablet 200 - 400 mg PO DAILY multivitamin Tablet 1 tab PO DAILY L-Arginine(alpha-ketoglutarat) 350 mg Tablet Extended Release 350 - 700 mg PO DAILY polyethylene glycol 3350 [Miralax] 17 gram/dose Powder 17 g PO DAILY PRN (Reason: Constipation) diphenhydramine-acetaminophen [Tylenol PM Extra Strength] 25-500 mg Tablet 2 tab PO QHS PRN (Reason: Pain) melatonin 12 mg Tablet 12 mg PO QHS PRN (Reason: Sleep) amlodipine 5 mg tablet 5 mg PO DAILY pantoprazole [Protonix] 40 mg tablet,delayed release (DR/EC) 40 mg PO BID Referrals / Follow Up: Alex Ji MD [Primary Care Provider] - Disposition Disposition (needs filled in before D/C Order can be placed): Home, Self Care
--- NOTE | 2022-09-18 09:20 | PCM.DC.SUM ---
Providers Date of Admission: 09/12/22 Date of Discharge: 09/18/22 Primary Care Physician: Dr. Alex Ji MD Consultations 09/12/22 13:29 Consult: Gastroenterology Routine Consulting Provider: [facility] Reason for Consult: Recurrent biliry pancreatitis s/p stent EMERGENT Consult: No MD Notified: Yes Date Notified: 09/12/22 Time Notified: 13:29 Method of Notification: ED Physician Initiated Reason For Visit: BILLIARY PAANCREATITIS Diagnosis Discharge Diagnosis (1) Acute pancreatitis: Status: Acute Code(s): K85.90 - Acute pancreatitis without necrosis or infection, unspecified Plan 1. 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 #4 chronic depression-patient is on Lexapro #5 essential hypertension-patient is on amlodipine Medications at Discharge Home Medications tizanidine 4 mg capsule 4 mg PO Q8H PRN Spasms 03/07/22 cyclobenzaprine 10 mg tablet 10 mg PO Q8H PRN MUSCLE SPASMS 08/14/22 escitalopram oxalate 10 mg tablet 10 mg PO DAILY depression 08/14/22 magnesium 200 mg tablet 200 - 400 mg PO DAILY supplement 08/14/22 arginine oxoglurate 350 mg tablet,extended release (L-Arginine (alpha-ketoglutarate)) 350 - 700 mg PO DAILY SUPPLEMENT 08/22/22 multivitamin 1 tab PO DAILY health maintenance 08/22/22 sigdiy-mgkolblt-gzjqmkr 24,000-76,000-120,000 unit capsule,delayed rel (Creon) 1 cap PO TID #90 caps 09/03/22 amlodipine 5 mg tablet 5 mg PO DAILY BLOOD PRESSURE 09/12/22 diphenhydramine 25 mg-acetaminophen 500 mg tablet (Tylenol PM Extra Strength) 2 tab PO QHS PRN Pain 09/12/22 melatonin 12 mg tablet 12 mg PO QHS PRN Sleep 09/12/22 pantoprazole 40 mg tablet,delayed release (Protonix) 40 mg PO BID GERD 09/12/22 polyethylene glycol 3350 17 gram/dose oral powder (Miralax) 17 g PO DAILY PRN Constipation 09/12/22 metronidazole 500 mg tablet 500 mg PO TID 5 days #15 tabs 09/18/22 oxycodone 10 mg tablet 10 mg PO BID PRN pain 5 days #10 tabs 09/18/22 Hospital Course Operations None Procedures - (ERCP with biliary sphincterotomy and removal of stent from pancreatic duct) Summary of Care Provided Minutes Spent on Discharge: 31 Hospital Course: This 62-year-old white male was seen in the emergency room at [facility] with a chief complaint of abdominal pain radiating to the back x5 days. Patient had undergone 2 recent ERCPs on 08/20/2022 and 08/28/2022. Patient was given IV narcotics and Zofran along with IV fluids in the emergency room, CT scan with IV contrast was obtained which showed mild hepatomegaly and fatty infiltration of the liver, there was a progressive increase in the size of the head of the pancreas with progressive increase. Pancreatic inflammatory changes suggestive of progressive acute pancreatitis. Patient's white blood cell count was 12, lipase was normal at 100, the emergency room physician spoke with gastroenterology and it was felt that the patient had imaging evidence of pancreatitis, it was recommended the patient be admitted and given IV fluids and IV narcotics and he was seen in consultation with gastroenterology. Patient underwent an ERCP with stent removal from the pancreatic duct, it was noted that the upper third of the main bile duct was dilated-the significance of this was unknown. A biliary sphincterotomy was also performed. Patient's pain improved during his hospitalization, on 09/18/2022, patient was seen and examined: On examination he appeared in good health and spirits. Vital signs as documented. Skin warm and dry and without overt rashes. Neck without JVD, neck was supple, trachea midline, thyroid was normal. Lungs clear bilaterally, normal air movement was noted. Heart exam notable for regular rhythm, normal sounds and absence of murmurs, rubs or gallops. Abdomen unremarkable and without evidence of organomegaly, masses, or abdominal aortic enlargement. Bowel sounds are present, abdomen is not distended. Extremities nonedematous, no cyanosis was noted, no clubbing was noted. Neuro: Cranial nerves II through XII are grossly intact, no focal motor deficits were noted, sensation to light touch and pinprick intact, motor exam 5/5 throughout. Psych: Patient is alert and oriented x3, he does not appear anxious or depressed, he does not appear agitated. Patient was felt to be stable for discharge home in good condition on 09/18/2022. Weight / BMI Weight Weight: 82.554 kg Body Mass Index (BMI) 27.6 ABG / Lab / Microbiology Data Result Diagrams: 09/18/22 04:24 09/18/22 04:24 Laboratory: Laboratory Results - last 24 hr 09/18/22 04:24: WBC 13.5 H, RBC 4.62, Hgb 14.3, Hct 40.7, MCV 88.1, MCH 31.0, MCHC 35.1, RDW Std Deviation 38.2, RDW Coeff of Linsey 11.9, Plt Count 374, MPV 8.5, Immature Gran % (Auto) 0.400, Neut % (Auto) 73.0 H, Lymph % (Auto) 14.5 L, Mclennan % (Auto) 9.5, Eos % (Auto) 2.2, Baso % (Auto) 0.4, Absolute Neuts (auto) 9.9 H, Absolute Lymphs (auto) 1.96, Nucleated RBC % 0 09/18/22 04:24: Sodium 137, Potassium 3.9, Chloride 103, Carbon Dioxide 28.0, Anion Gap 6, BUN 9, Creatinine 0.94, Estim Creat Clear Calc 76.81, Est GFR (MDRD) Af Amer 104, Est GFR (MDRD) Non-Af 86, BUN/Creatinine Ratio 9.6 L, Glucose 95, Calcium 8.6, Total Bilirubin 0.50, AST 19, ALT 42, Alkaline Phosphatase 242 H, Total Protein 7.6, Albumin 3.1 L, Globulin 4.5 H, Albumin/Globulin Ratio 0.7 L 09/18/22 04:24: ESR 51 H 09/18/22 04:24: C-React Prot Ext Range 63.10 H Microbiology: Microbiology 09/14/22 12:50 Drainage Tube Gram Stain - Final 09/14/22 12:50 Drainage Tube Wound Culture - Preliminary Klebsiella pneumoniae sp pneum Streptococcus gallolyticus pas Lactobacillus gasseri 09/14/22 12:50 Drainage Tube Anaerobic Culture - Final No anaerobic bacteria isolated. Radiography Diagnostic Testing: Radiology Impression Abdomen/Pelvis CT 11/07/22 08:07 IMPRESSION: Persistent inflammatory changes in the region of the head of the pancreas with enlargement of the head although there has been improvement as compared to prior study. Electronically Signed: Son Chapman MD at 10:40 EST , D/C Instructions Discharge Diet: No restrictions Weight Bearing Status: Full weight bearing Meaningful Use Info Meaningful Use Diagnoses (Choose all that apply): None applicable Discharge Plan Admission Admit Date/Time: 09/12/22 13:03 Primary Reason for Your Visit: Acute pancreatitis Attending Provider: Lew Belle Primary Care Provider: Alex Ji Consulting Providers: Edson Velazquez Discharge Orders/Prescriptions Prescriptions: Continued tizanidine 4 mg capsule 4 mg PO Q8H PRN (Reason: Spasms) Creon 24,000-76,000 -120,000 unit capsule,delayed release(DR/EC) 1 cap PO TID Qty: 90 0RF Rx Instructions: administer with meals and/or snacks cyclobenzaprine 10 mg Tablet 10 mg PO Q8H PRN (Reason: MUSCLE SPASMS) escitalopram oxalate 10 mg Tablet 10 mg PO DAILY magnesium 200 mg Tablet 200 - 400 mg PO DAILY multivitamin Tablet 1 tab PO DAILY L-Arginine(alpha-ketoglutarat) 350 mg Tablet Extended Release 350 - 700 mg PO DAILY polyethylene glycol 3350 [Miralax] 17 gram/dose Powder 17 g PO DAILY PRN (Reason: Constipation) diphenhydramine-acetaminophen [Tylenol PM Extra Strength] 25-500 mg Tablet 2 tab PO QHS PRN (Reason: Pain) melatonin 12 mg Tablet 12 mg PO QHS PRN (Reason: Sleep) amlodipine 5 mg tablet 5 mg PO DAILY pantoprazole [Protonix] 40 mg tablet,delayed release (DR/EC) 40 mg PO BID No Action oxycodone 10 mg tablet 10 mg PO BID PRN (Reason: pain) 5 Days Qty: 10 0RF metronidazole 500 mg tablet 500 mg PO TID 5 Days Qty: 15 0RF Referrals / Follow Up: Alex Ji MD [Primary Care Provider] - Disposition Disposition (needs filled in before D/C Order can be placed): Home, Self Care Charges/Coding Visit Charges Inpatient E&M: 03259 Disch Hosp
--- NOTE | 2022-09-18 09:45 | CASEMGMT ---
PIPER CM in to pt room, pt sitting up in chair and ready for dc. Pt is up independent in the room, denies any homegoing needs.
--- NOTE | 2022-09-18 10:17 | PHA.DC.MR ---
Pharmacy Service has performed discharge medication reconciliation for this patient. The patient's discharge medication list was reviewed for discrepancies and discrepancies were resolved. Home Medications tizanidine 4 mg capsule 4 mg PO Q8H PRN Spasms 03/07/22 cyclobenzaprine 10 mg tablet 10 mg PO Q8H PRN MUSCLE SPASMS 08/14/22 escitalopram oxalate 10 mg tablet 10 mg PO DAILY depression 08/14/22 magnesium 200 mg tablet 200 - 400 mg PO DAILY supplement 08/14/22 arginine oxoglurate 350 mg tablet,extended release (L-Arginine (alpha-ketoglutarate)) 350 - 700 mg PO DAILY SUPPLEMENT 08/22/22 multivitamin 1 tab PO DAILY health maintenance 08/22/22 peidwz-atilbijh-nkdexem 24,000-76,000-120,000 unit capsule,delayed rel (Creon) 1 cap PO TID #90 caps 09/03/22 amlodipine 5 mg tablet 5 mg PO DAILY BLOOD PRESSURE 09/12/22 diphenhydramine 25 mg-acetaminophen 500 mg tablet (Tylenol PM Extra Strength) 2 tab PO QHS PRN Pain 09/12/22 melatonin 12 mg tablet 12 mg PO QHS PRN Sleep 09/12/22 pantoprazole 40 mg tablet,delayed release (Protonix) 40 mg PO BID GERD 09/12/22 polyethylene glycol 3350 17 gram/dose oral powder (Miralax) 17 g PO DAILY PRN Constipation 09/12/22
--- NOTE | 2022-09-18 10:25 | CASEMGMT ---
Social work SW in to met with pt to provide information regarding AD. Pt reports to this SW that [employer]CP[employer] documents are completed and pt's agent is Tiffany Raman, pt's sister. SW informed pt these documents are not on file and made pt aware that copies can be brought in and dropped off with medical records. Pt agreeable to bringing in the documents at earliest convenience. OVI Vidales
[2022-09-21 05:07] LABS: Albumin 2.9 g/dL (2.9-4.4); Alpha-1-Globulins 0.3 g/dL (0.0-0.4); Cytoplasmic Ab (C-ANCA) <1:20 titer (Neg:<1:20); Gamma Globulin 0.9 g/dL (0.4-1.8); Immunoglobulin A 172 mg/dL (61-437); Immunoglobulin E 292 IU/mL (6-495); Immunoglobulin G 916 mg/dL (603-1613); Immunoglobulin M 141 mg/dL (20-172); PROEL- TOTAL PROTEIN 6.2 g/dL (6.0-8.5)
[2022-09-21 15:17] LABS: Perinuclear Ab (P-ANCA) <1:20 titer (Neg:<1:20)
== END 2022-09-18 10:58 | disposition home or self-care (01) | DRG 438 ==
LOC: ED 12:40 → MS3 13:47
PROVIDERS: Internal Medicine Gastroenterology; Admitting Provider Internal Medicine; Emergency Provider Emergency Medicine; PCP Family Medicine; Visit Provider Internal Medicine
PROC: 0FPD8DZ Removal of Intraluminal Device from Pancreatic Duct, Via Natural or Artificial Opening Endoscopic (ICD-10-PCS; CPT 43260; principal; 2022-09-14 11:10)
DX: K85.10 Biliary acute pancreatitis without necrosis or infection (principal); K83.1 Obstruction of bile duct; K83.8 Other specified diseases of biliary tract; R16.0 Hepatomegaly, not elsewhere classified; K76.0 Fatty (change of) liver, not elsewhere classified; F12.10 Cannabis abuse, uncomplicated; I10 Essential (primary) hypertension; I16.0 Hypertensive urgency; K29.70 Gastritis, unspecified, without bleeding; K29.80 Duodenitis without bleeding; Z80.0 Family history of malignant neoplasm of digestive organs; Z51.5 Encounter for palliative care; Z66 Do not resuscitate; Z90.49 Acquired absence of other specified parts of digestive tract; F32.A Depression, unspecified
CPT/HCPCS: 36415; 74177; 74181; 74330; 76000; 80048; 80053; 80076; 80307; 82077; 82150; 82728; 82784; 82785; 83516; 83605; 83690; 83735; 84100; 84165; 85025; 85652; 86140; 86225; 86235; 86256; 86301; 86334; 87070; 87075; 87077; 87186; 87205; 97802; 99284; J7030; J7050; J7120; Q9967; A4216; J2405

== ENCOUNTER → 2023-03-25 | Outpatient (CLI) | payer MEDICARE, MEDICAID, SELFPAY ==
[2023-03-25 15:33] LABS: Amylase 38 U/L (25-115); CRP 3.69 mg/L (0.0-3.0); LDH 174 U/L (87-241); Lipase 23 U/L (13-75)
[2023-03-25 15:43] LABS: Absolute Lymphocyte Count 2.47 X10^3/uL (0.83-4.51); Absolute Neutrophil Count 5.2 X10^3/uL (2.0-7.7); Basophil# 0.06 X10^3/uL; Basophil% 0.7 % (0-1); Eosinophils% 1.2 % (0-5); Hematocrit 47.1 % (40-54); Hemoglobin 16.1 g/dL (13.0-16.5); Lymphocyte # 2.47 X10^3/ul (0.83-4.51); Mean Corp Hgb Conc 34.2 g/dL (32-36); Mean Corpuscular Hgb 30.3 pg (27.0-32.0); Mean Corpuscular Volume 88.5 fL (80-94); Mean Platelet Vol. 9.1 fl (6.2-12.0); Monocyte# 0.63 X10^3/uL; Monocyte% 7.4 % (0-10); NRBC Flagged by Analyzer 0 % (0-5); Neutrophil # 5.23 X10^3/uL (2.7-7.7); Neutrophil % 61.2 % (47-70); Platelet Count 342 K/mm3 (150-450); RBC Distribution Width CV 12.7 % (11.6-14.6); RBC Distribution Width SD 41.2 fl (35.1-43.9); Red Blood Count 5.32 M/mm3 (4.6-6.2); White Blood Count 8.5 K/mm3 (4.4-11.0)
[2023-03-25 15:46] LABS: Erythrocyte Sedimentation Rate 7 mm/hr (0-20)
[2023-03-27 16:10] LABS: Endomysial Antibody IgA Negative (Negative); Immunoglobulin A 196 mg/dL (61-437); t-Transglutaminase IgA <2 U/mL (0-3)
[2023-03-31 15:07] LABS: Immunoglobulin A 193 mg/dL (61-437); Immunoglobulin E 230 IU/mL (6-495); Immunoglobulin G 1288 mg/dL (603-1613); Immunoglobulin M 181 mg/dL (20-172)
== END | disposition home or self-care (01) ==
PROVIDERS: PCP Family Medicine; Referring Provider Internal Medicine Gastroenterology; Visit Provider Internal Medicine Gastroenterology
DX: Z87.19 Personal history of other diseases of the digestive system (principal)
CPT/HCPCS: 36415; 82150; 82784; 82785; 83516; 83615; 83690; 85025; 85652; 86140; 86255

== ENCOUNTER → 2023-05-30 | Outpatient (CLI) | payer MEDICARE, MEDICAID, SELFPAY ==
[2023-05-31 22:06] LABS: Fats, Neutral Normal (.); Fats, Total Normal (.)
[2023-06-04 14:19] LABS: Pancreatic Elastase, Fecal 76 (>200)
== END | disposition home or self-care (01) ==
PROVIDERS: PCP Family Medicine; Referring Provider Internal Medicine Gastroenterology; Visit Provider Internal Medicine Gastroenterology
DX: Z87.19 Personal history of other diseases of the digestive system (principal)
CPT/HCPCS: 82653; 82705

== ENCOUNTER → 2023-08-13 | Outpatient (CLI) | payer OTHER, MEDICAID, SELFPAY ==
--- NOTE | 2023-08-13 16:58 | CT_ITS ---
INDICATION: hx pancreatitis, abdominal pains COMPARISON: 09/17/[address] IV Contrast dosage and agent: 100mL Isovue-370 RADIATION DOSAGE (If Supplied By Facility): Radiation CTDIvol 15.79 Radiation DLP 780.84 A radiation dose optimization technique was used for this scan. FINDINGS: Contrast enhanced serial CT axial images through the abdomen and pelvis with coronal and sagittal reformatted series. PANCREAS: No peripancreatic fat stranding. BOWEL/MESENTERY: Although nondistended and with upper abdominal motion artifact, there appears to be significant thickening of the duodenum and proximal jejunum, consistent with enteritis. No dilated bowel loops. No significant free fluid. No free air. Scattered colonic diverticula without evidence of diverticulitis. GALLBLADDER: Absent gallbladder with surgical clips in the gallbladder fossa. LIVER/STOMACH: No obvious abnormality. URINARY COLLECTING SYSTEM/ KIDNEYS: No obstructing ureteral calculus. No significant renal parenchymal abnormality. APPENDIX: Normal caliber appendix. LUNG BASES: Unremarkable. BONES: Mild lumbar levoscoliosis. CT/Abdomen/Pelvis WITH Contrast IMPRESSION: Although nondistended and with upper abdominal motion artifact, there appears to be significant wall thickening of the duodenum and proximal jejunum, consistent with enteritis. Otherwise, no other definite acute abdominal abnormality is identified, to include no definite peripancreatic fat stranding. Electronically Signed: Ranjith Yanes MD at 4:57 EDT ,
[2023-08-13 17:30] LABS: CREATININE FINGERSTICK < 0.9 mg/dL (0.70-1.30); EGFR FINGERSTICK > 60.0000 mL/min (>60)
== END | disposition home or self-care (01) ==
LOC: CT 16:55
PROVIDERS: PCP Family Medicine; Referring Provider Internal Medicine Gastroenterology; Visit Provider Internal Medicine Gastroenterology
DX: Z87.19 Personal history of other diseases of the digestive system (principal)
CPT/HCPCS: 74177; Q9967

== ENCOUNTER 2024-02-18 10:45 | Day surgery (SDC) | payer MEDICARE, SELFPAY ==
[2024-02-18] MEDS: Lactated Ringers 1,000 ML 15 ML IV (11:04)
[2024-02-18 11:05] VITALS: BP 125/88; PULSE 63; RESP 17; TEMP 36.4; O2SAT 98; BMI 27.6
--- NOTE | 2024-02-18 11:43 | HP.PCM_ITS ---
History and Physical Date of Admission: 02/18/24 duodenitits pancreatic stent migration Details: DARLIN EDWARDS, is a 62 M who presents to the office today for a follow up. 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 FH mother ovarian cancer; father gastric cancer; sister cancer.? ? Open cholecystectomy 09.11.18 for acute cholecystitis.? ? CT abd/pel 12.12.18 noting gallbladder remnant.? ? Laparoscopic cholecystectomy 01.07.[address] Julio Cesar PARIKH who noted significant adhesions which he lysed.? ? US 02.18.19 without acute/chronic concern.? ? MRI abd 04.28.19 noting 9mm renal hemorrhagic cyst. Remaining exam without comment.? ? Dr. Mascorro start?gabapentin 300mg TID? ? Outside GI seen 01.12.20 started?Pamelor with gabapentin wean. Consulted psychiatric support.? ? *[facility] established clinic 05.18.22 with referral from PCP. He was having continued difficulty with constipation, bloating and emesis. EGD most recently in 2018. ? US 06.07.21?normal pancreas, liver, kidney, no ascites, noted cholecystectomy. CBD 0.7cm at hilum. ? ERCP 08.20.22?single segmental biliary stricture of lower third main bile duct, benign appearing; upper third main bile duct dilated r/t obstruction; s/p cholecystectomy; biliary tree swept, sludge; biliary sphincterotomy performed; CBD dilated; stents placed in CBD and ventral pancreatic duct.? OV 09.03.22?Start creon.?Previously placed pancreatic stent noted to be dislodged and has been removed.? [facility] hospitalization 08.22.22-08.28.22 with abdominal pain following ERCP and was noted to have displacement of the pancreatic stent on CT scan.? CT abd/pel 08.22.22hepatic fatty infiltration; biliary stent noted to be extending into proximal pancreatic duct; peripancreatic edema at level of head and uncinate process with mild thickening of transverse duodenal altman consistent with focal pancreatitis and duodenitis; colonic diverticulosis.? ERCP 08.27.22?with single biliary stricture of main BD, postsurgical; entire main BD dilated; biliary sphincterotomy performed; biliary tree swept finding sludge; two stents removed from biliary tree and pancreatic duct; One stent laced in pancreatic duct; CBD dilated.?Start gabapentin and PPI.? OV 09.03.22 reports that his pain has greatly decreased since the ERCP. Complains of bloating and a feeling of fullness. Bowel movements have improved, he has been having a regular daily BM.?Start Creon? [facility] hospitalization 09.12.22-09.18.22 with epigastric/upper abdominal pain for a week.? CT abd/pel 09.12.22?noting hepatomegaly; diffuse enlargement of pancreatic head with peripancreatic inflammatory changes, progressed since last exam; pancreatic head cystic changes; CBD biliary stent noted; colonic diverticulosis.? MRCP 09.12.22?mild dilation of common hepatic duct likely secondary to reservoir effect s/p cholecystectomy; acute focal pancreatitis.? Biochemical?GAME, KANDY, ANCA without pertinent abnormality.? ERCP 09.14.22?noting single localized biliary stricture in middle third of main BD, indeterminate; upper third of main bile duct dilated; biliary sphincterotomy; biliary tree swept, sludge; stent removed from pancreatic duct.?Stop lovenox as acute pancreatitis can convert to hemorrhagic pancreatitis.? CT abd/pel 09.17.22?noting hepatic steatosis; persistent diffuse enlargement of pancreatic head with increased markings in surrounding pancreatic fat; pancreatic head size decreased; borderline retroperitoneal lymphadenopathy.? OV 11.30.22 Feels he is doing overall well. Does have some abdominal discomfort which feels similar as to previously which is not as severe as previously. He has been attempting to lose weight with exercise and feels that abdominal exercises may aggravate this. Continues with PPI therapy; Creon 1 capsule with each meal.?Increase Creon to 2 capsules with meals.? Today patient reports that over well he has been doing well. States that he continues to have upper quadrant abdominal pain that he rates as a 6/10. He continues to take the Creon 2 capsules with each meal. He is also taking dicy clomine for the abdominal pain. He states that the dicyclomine helps with spasms but not a lot with the abdominal pain. ROS Const Constitutional: No fatigue, fever(s), frequent falls, headache(s) or weight change ENT ENT: No headache(s) or difficulty swallowing Cardio Cardiology: Positive for leg pain with exertion Gastro GI: Positive for abdominal pain; No bloating, change in bowel habits, constipation, diarrhea, heartburn, difficulty swallowing, Vomiting blood/hematemesis, Blood in stool, nausea/dyspepsia or vomiting Musc Musculoskeletal: Positive for joint pain and leg pain with exertion; No abnormal gait, back pain, joint swelling, muscle cramps, muscle weakness, numbness, stiffness, tingling, Arthritis, sciatica or leg pain at night Skin Skin: No dry skin, lesions, itchy eyes or rash Neuro Neurology: No abnormal gait, dizziness, frequent falls, headache(s), numbness, tingling, tremor(s), Increased tone in limbs, paralysis or seizures Psych Psychiatric: No anxiety, No depression, No paranoia, No Behavioral Problems, No Compulsive Behavior, No hyperactivity, No inattentiveness, No obsessions/compulsions, No Temper Tantrums and No suicidal ideation Endo Endocrine: No fatigue or weight change Aller/Imm Allergy/Immunologic: No itchy eyes Bo/Lymp Hematologic/Lymphatic: No easy bleeding or easy bruising Exam Const General: cooperative and comfortable Nutritional Appearance: average body habitus and well nourished [facility] Head: normal to inspection Ears: hearing grossly normal bilaterally Nose: external nose normal Face and sinus: normal facial exam Mouth: oral mucosae normal Throat: posterior oropharynx normal Eyes General: appearance normal, both eyes and all related structures Neck Neck: normal visual inspection Chest Chest palpation & inspection: normal inspection of the chest and normal palpation of entire chest wall Resp Effort & Inspection: normal respiratory effort Auscultation: Bilateral: Clear to Auscultation Cardio Palpation: normal PMI Rate: regular rate Rhythm: regular rhythm GI Inspection: normal to inspection Auscultation: normal bowel sounds Percussion: normal to percussion Palpation: no hepatosplenomegaly Skin General: no rashes or lesions noted Neuro General: patient alert Extrem General: normal to inspection Psych Affect: normal affect Quality Reporting Tobacco Screening ([facility] 138) Smoking Status: Never smoker Assessment and Plan Assessment and Plan (1) History of pancreatitis: Status: Chronic Plan: History of pancreatitis after cholecystectomy and after ERCP. He is on pancreatic enzymes and actually is doing very well except for some occasional abdominal pain. We will increase his pancreatic enzymes to 2 pills with each meal. (2) Upper abdominal pain: Status: Deleted Plan: I think most likely associated with IBS. We will put him on a regimen of aloe vera with sodium bicarbonate to take in the morning and the evening. He is also been asked to increase Lasix to twice daily. He will follow-up in approximately 6 months.. (2) we will also set him up for screening colonoscopy. He had a positive Cologuard test. He has not had a colonoscopy in the past so this will be his screening following his positive Cologuard. Orders: Orders CRP Today Z87.19 - Personal history of other diseases of the digestive system LDH Today Z87. - Personal history of other diseases of the digestive system Lipase Today Z87. - Personal history of other diseases of the digestive system CBC W/Diff, Automated Today Z87. - Personal history of other diseases of the digestive system Erythrocyte Sed Rate Today Z87. - Personal history of other diseases of the digestive system Celiac Disease Profile Today Z87. - Personal history of other diseases of the digestive system Immunoglobulin A Today Z87. - Personal history of other diseases of the digestive system Immunoglobulin E Today Z87. - Personal history of other diseases of the digestive system Immunoglobulin G Today Z87.19 - Personal history of other diseases of the digestive system Immunoglobulin M Today Z87. - Personal history of other diseases of the digestive system Miscellaneous Lab Procedure Today Z87. - Personal history of other diseases of the digestive system Amylase Today Z87. - Personal history of other diseases of the digestive system Fecal Fat, Qualitative Today Z87. - Personal history of other diseases of the digestive system Pancreatic Elastase, Fecal Today Z87. - Personal history of other diseases of the digestive system Medications: Refilled pantoprazole (Protonix) 40 mg PO DAILY 90 tabs 1RF GERD
--- NOTE | 2024-02-18 12:00 | COLBX_PTH ---
PATIENT: DARLIN EDWARDS LOC: EN U#:[id number] AGE/SX: 63/M ROOM: RE02/18/[address]: Dr. Sb Novak DO : 1960 BED: DIS: 02/18/2024 SPEC #: [id number] RECD: 02/18/24 12:49 STATUS: DANIA SLIM #: [id number] JOSEPH: 02/18/24 12:[address]: Sb Novak DEPT: SURGICAL PATHOLOGY RECD BY: Pratima Penn ENTERED: 02/18/24 13:50 SP TYPE: COLON BX OTHR DR: Dr. Alex Ji MD Tissues: A - COLON BIOPSY B - COLON BIOPSY C - Sigmoid colon biopsy Procedures: Surgery Specimen Level IV HEADER OPERATION: Colonoscopy with polypectomy and biopsy PRE-OP DIAGNOSIS: History of pancreatitis, Upper abdominal pain, Screening of colonoscopy TISSUE SUBMITTED: A- Random colon biopsy, B- Splenic flexure polyp, C- Sigmoid polyp MICROSCOPIC DIAGNOSIS A. Colon, random biopsy: Fragments of colonic mucosa, no pathologic diagnosis. B. Splenic flexure polyp, biopsy: Fragments of hyperplastic polyp. C. Sigmoid polyp, polypectomy: Consistent with hyperplastic polyp and marked cautery artifacts. LINDA 02/19/24 MICROSCOPIC DESCRIPTION Slides are reviewed. GROSS DESCRIPTION A. Received in fixative is one container labeled with the patient's name and designated Random colon biopsy. The specimen consists of multiple irregular fragments of light mendoza soft tissue that in aggregate measure 1.2 x 0.3 x 0.1 cm. The specimen is totally submitted in one cassette. B. Received in fixative is one container labeled with the patient's name and designated Splenic flexure polyp. The specimen consists of multiple irregular fragments of light mendoza soft tissue mixed with fecal material that in aggregate measure 1.5 x 0.5 x 0.2 cm. The specimen is totally submitted in one cassette. C. Received in fixative is one container labeled with the patient's name and designated Sigmoid polyp. The specimen consists of one irregular fragment of light mendoza soft tissue that measures 0.3 x 0.3 x 0.2 cm. The specimen is totally submitted in one cassette. LINDA 02/18/24 TC:1 CPT:90623a0
[2024-02-18 12:31] VITALS: BP 125/88; BP 93/47; PULSE 56; RESP 18; TEMP 36.6; O2SAT 97
--- NOTE | 2024-02-18 12:33 | OP.COLON_ITS ---
Patient Name: Kamlesh Carter Procedure Date: 02/18/2024 11:56 AM Date of : 1960 Age: 63 Procedure: Colonoscopy Indications: Screening for colorectal malignant neoplasm Providers: Sb Novak DO Referring MD: Alex Ji Medicines: Monitored Anesthesia Care Patient Profile: This is a 63 year old male. Refer to note in patient chart for documentation of history and physical. Last Colonoscopy: none. The patient's first colonoscopy is today. Complications: No immediate complications. Procedure: Pre-Anesthesia Assessment: - Prior to the procedure, a History and Physical was performed, and patient medications and allergies were reviewed. The risks and benefits of the procedure and the sedation options and risks were discussed with the patient. All questions were answered and informed consent was obtained. Patient identification and proposed procedure were verified by the physician in the pre-procedure area. Mental Status Examination: alert and oriented. Airway Examination: normal oropharyngeal airway and neck mobility. Respiratory Examination: clear to auscultation. CV Examination: normal. Prophylactic Antibiotics: The patient does not require prophylactic antibiotics. Prior Anticoagulants: The patient has taken no anticoagulant or antiplatelet agents. ASA Grade Assessment: II - A patient with mild systemic disease. After reviewing the risks and benefits, the patient was deemed in satisfactory condition to undergo the procedure. The anesthesia plan was to use monitored anesthesia care (MAC). Immediately prior to administration of medications, the patient was re-assessed for adequacy to receive sedatives. The heart rate, respiratory rate, oxygen saturations, blood pressure, adequacy of pulmonary ventilation, and response to care were monitored throughout the procedure. The physical status of the patient was re-assessed after the procedure. After I obtained informed consent, the scope was passed under direct vision. Throughout the procedure, the patient's blood pressure, pulse, and oxygen saturations were monitored continuously. The Colonoscope was introduced through the anus and advanced to the cecum, identified by the appendiceal orifice, ileocecal valve and palpation. The colonoscopy was performed without difficulty. The patient tolerated the procedure well. The quality of the bowel preparation was adequate. The ileocecal valve, appendiceal orifice, and rectum were photographed. Scope In: 12:04:00 PM Scope Withdrawal Time 0 hours 20 minutes 22 seconds Scope Out: 12:26:37 PM Total Procedure Duration Time 0 hours 22 minutes 37 seconds Findings: The perianal and digital rectal examinations were normal. Pertinent negatives include normal sphincter tone. Multiple small and large-mouthed diverticula were found in the recto-sigmoid colon, sigmoid colon and descending colon. Two sessile polyps were found in the sigmoid colon and splenic flexure. The polyps were 1 to 2 mm in size. These polyps were removed with a hot snare. Resection and retrieval were complete. Verification of patient identification for the specimen was done. Estimated blood loss was minimal. An area of mildly congested mucosa was found in the sigmoid colon, at the splenic flexure, in the transverse colon and at the hepatic flexure. Biopsies were taken with a cold forceps for histology. Verification of patient identification for the specimen was done. Estimated blood loss was minimal. Impression: - Diverticulosis in the recto-sigmoid colon, in the sigmoid colon and in the descending colon. - Two 1 to 2 mm polyps in the sigmoid colon and at the splenic flexure, removed with a hot snare. Resected and retrieved. - Congested mucosa in the sigmoid colon, at the splenic flexure, in the transverse colon and at the hepatic flexure. Biopsied. Recommendation: - Discharge patient to home. - Resume previous diet. - Continue present medications. - Await pathology results. - Repeat colonoscopy in 3 years for surveillance. Procedure Code(s): --- Professional --- 62545, Colonoscopy, flexible; with removal of tumor(s), polyp(s), or other lesion(s) by snare technique [id number], 59, Colonoscopy, flexible; with biopsy, single or multiple CPT copyright 2021 [employer]. All rights reserved. The codes documented in this report are preliminary and upon dry lumber grader review may be revised to meet current compliance requirements. Sb Novak DO 02/18/2024 12:33:04 PM This report has been signed electronically. Number of Addenda: 0 Note Initiated On: 02/18/2024 11:56 AM
--- NOTE | 2024-02-18 12:34 | OP.CCLET_ITS ---
02/18/2024 Alex Ji Re : Colonoscopy procedure for Kamlesh Carter Dear Margy This procedure was performed on Sunday, February 18, 2024. My impressions and recommendations are as follows: Impressions : - Diverticulosis in the recto-sigmoid colon, in the sigmoid colon and in the descending colon. - Two 1 to 2 mm polyps in the sigmoid colon and at the splenic flexure, removed with a hot snare. Resected and retrieved. - Congested mucosa in the sigmoid colon, at the splenic flexure, in the transverse colon and at the hepatic flexure. Biopsied. Recommendations : - Discharge patient to home. - Resume previous diet. - Continue present medications. - Await pathology results. - Repeat colonoscopy in 3 years for surveillance. My findings are described in the full procedure note, which is enclosed. If I can be of further assistance, please feel free to contact me at . Sincerely, Sb Novak, 02/18/2024 12:33:04 PM This report has been signed electronically.
[2024-02-18 12:35] VITALS: BP 125/88; BP 88/45; PULSE 58; RESP 18; O2SAT 97
[2024-02-18 12:40] VITALS: BP 125/88; BP 91/56; PULSE 56; RESP 16; O2SAT 98
[2024-02-18 12:46] VITALS: BP 125/88; BP 94/72; PULSE 58; RESP 16; TEMP 37; O2SAT 97
[2024-02-18 13:00] VITALS: BP 125/88
== END 2024-02-18 13:11 | disposition home or self-care (01) ==
LOC: EN 10:46 → AC 10:47
PROVIDERS: PCP Family Medicine; Referring Provider Family Medicine; Visit Provider Internal Medicine Gastroenterology
PROC: 0DJD8ZZ Inspection of Lower Intestinal Tract, Via Natural or Artificial Opening Endoscopic (ICD-10-PCS; CPT 45378; principal; 2024-02-18 11:55)
DX: R19.5 Other fecal abnormalities (principal); R10.10 Upper abdominal pain, unspecified; K57.30 Diverticulosis of large intestine without perforation or abscess without bleeding; K63.5 Polyp of colon; K63.89 Other specified diseases of intestine; Z80.0 Family history of malignant neoplasm of digestive organs; Z90.49 Acquired absence of other specified parts of digestive tract; Z87.19 Personal history of other diseases of the digestive system
CPT/HCPCS: 45385; 45380; 88305; J7120; J2405

== ENCOUNTER → 2024-06-22 | Outpatient (CLI) | payer MEDICARE, SELFPAY ==
--- NOTE | 2024-06-22 10:11 | MRI_ITS ---
MR Enterography Abdomen/Pelvis WO/W Contrast 06/22/2024 11:48 AM COMPARISON: 09/12/2022 CLINICAL HISTORY: Z87.19 - Personal history of other diseases of the digestive s... TECHNIQUE: Following oral administration of enteric contrast and administration of glucagon, multiplanar T1 and T2 weighted images along with dynamic post-gadolinium images were obtained through the abdomen and pelvis. 16 cc of IV Clariscan was used. FINDINGS: GI Tract: There are multiple short segment loops of small bowel demonstrating mild to moderate wall thickening and mucosal hyperenhancement. There is also wall thickening of the transverse, descending and sigmoid colon. No stricture, fistula, or obstruction. No drainable fluid collections. Liver: Unremarkable Gallbladder: Surgically absent. Spleen: Unremarkable Pancreas: Mild chronic fullness of the pancreatic head. Adrenal Glands: Unremarkable Kidneys: Unremarkable Lymphadenopathy: Absent Ascites: Absent Bones: No suspicious lesions MRI/Enterography Abd/Pel IMPRESSION: Findings suspicious for acute exacerbation of inflammatory bowel disease. No stricture, fistula, or obstruction. No drainable fluid collections. Electronically Signed: Ghassan Jaimes MD at 14:40 EDT ,
[2024-06-22 10:36] VITALS: BP 145/75; PULSE 49; RESP 18; O2SAT 99; BMI 27.0
[2024-06-22 10:52] LABS: CREATININE FINGERSTICK < 1.0 mg/dL (0.70-1.30); EGFR FINGERSTICK > 60.0000 mL/min (>60)
[2024-06-22] MEDS: 0.9% Saline Lock 10 ML Syringe IV (10:55)
[2024-06-22] MEDS: Glucagon 1 MG/ML Syringe IV (12:05)
[2024-06-22 12:28] VITALS: BP 170/85; PULSE 52; RESP 16; O2SAT 98
[2024-06-22 12:34] VITALS: BP 175/81; PULSE 55; RESP 16; O2SAT 97
== END | disposition home or self-care (01) ==
LOC: MRI 10:03
PROVIDERS: PCP Family Medicine; Referring Provider Internal Medicine Gastroenterology; Visit Provider Internal Medicine Gastroenterology
DX: Z01.812 Encounter for preprocedural laboratory examination (principal); K52.9 Noninfective gastroenteritis and colitis, unspecified; Z87.19 Personal history of other diseases of the digestive system
CPT/HCPCS: 74183; 96374; A9575; A4216; J1610

== ENCOUNTER → 2025-10-18 | Outpatient (CLI) | payer MEDICARE, SELFPAY ==
[2025-10-18 14:46] LABS: Mucous, Urine 0 SEEN /hpf (<or=2+); Red Blood Cells-Urine 0 SEEN /hpf (0-5); Squamous Epithelial Cells - UA 0 SEEN /hpf (0-5)
[2025-10-18 15:13] LABS: Hematocrit 44.5 % (40-54); Hemoglobin 15.6 g/dL (13.0-16.5); Immature Granulocytes Count 0.040 X10^3/uL (0.0-0.0); Mean Corp Hgb Conc 35.1 g/dL (32-36); Mean Corpuscular Volume 87.3 fL (80-94); Mean Platelet Vol. 8.9 fl (6.2-12.0); NRBC Flagged by Analyzer 0 % (0-5); Platelet Count 313 K/mm3 (150-450); RBC Distribution Width CV 12.4 % (11.6-14.6); RBC Distribution Width SD 39.5 fl (35.1-43.9); Red Blood Count 5.10 M/mm3 (4.6-6.2); White Blood Count 8.7 K/mm3 (4.4-11.0)
[2025-10-18 15:40] LABS: AST(SGOT) 23 U/L (<=37); Alanine Aminotransfer ALT/SGPT 21 U/L (<=46); Albumin, Serum 4.6 g/dL (3.4-4.8); Alkaline Phosphatase 76 U/L (40-129); Anion Gap 10 (5-15); BUN 19 mg/dL (4-19); BUN/Creat Ratio 19.5 RATIO (10-20); CPK Total, Creatine Kinase 136 U/L (24-195); Calcium,Total 9.7 mg/dL (7.6-11.0); Carbon Dioxide 26.6 mmol/L (21.0-32.0); Chloride 103 mmol/L (98-108); Globulin 3.3 g/dL (2.2-4.2); Glucose 96 mg/dL (70-99); Magnesium 2.5 mg/dL (1.5-2.2); Potassium 4.9 mmol/L (3.3-5.1)
[2025-10-18 16:03] LABS: Color, Urine Yellow (Yellow); Glucose, Dipstick Normal (Normal); Ketone-Dipstick Negative (Negative); Leukocyte Esterase-Dipstick 25 /ul (Negative); Nitrite-Dipstick Negative (Negative); Occult Blood-Urine Negative /ul (Negative); Protein-Dipstick 15 mg/dl (Negative); Specific Gravity, Urine 1.015 (1.002-1.030); Urine Bilirubin Dipstick Negative (Negative)
== END | disposition home or self-care (01) ==
LOC: LAB 14:33
PROVIDERS: PCP Family Medicine; Referring Provider Internal Medicine Gastroenterology; Visit Provider Internal Medicine Gastroenterology
DX: R30.0 Dysuria (principal); M79.10 Myalgia, unspecified site
CPT/HCPCS: 36415; 80053; 81001; 82550; 83735; 84100; 85025; 87086; 87088